=== PATIENT | female | born 1940 | race Caucasian/White ===

== ENCOUNTER 2016-11-30 13:18 | Outpatient (CLI) | payer MEDICARE, OTHER | END 2016-11-30 13:19 | disposition home or self-care (01) | DX: I48.91 Unspecified atrial fibrillation (principal); Z79.01 Long term (current) use of anticoagulants ==

== ENCOUNTER 2017-01-07 08:00 | Outpatient (CLI) | payer MEDICARE, OTHER | END 2017-01-07 08:01 | disposition home or self-care (01) | DX: I48.91 Unspecified atrial fibrillation (principal); Z79.01 Long term (current) use of anticoagulants ==

== ENCOUNTER 2017-01-22 14:36 | Outpatient (CLI) | payer MEDICARE, OTHER | END 2017-01-22 14:37 | disposition home or self-care (01) | DX: R05 Cough (principal); I48.91 Unspecified atrial fibrillation; Z79.01 Long term (current) use of anticoagulants ==

== ENCOUNTER 2017-01-22 14:53 | Outpatient (CLI) | payer MEDICARE, OTHER | END 2017-01-22 14:54 | DX: I48.91 Unspecified atrial fibrillation (principal); Z79.01 Long term (current) use of anticoagulants ==

== ENCOUNTER 2017-02-06 11:21 | Outpatient (CLI) | payer MEDICARE, OTHER | END 2017-02-06 11:22 | disposition home or self-care (01) | DX: I48.91 Unspecified atrial fibrillation (principal); Z79.01 Long term (current) use of anticoagulants ==

== ENCOUNTER 2017-02-20 14:10 | Outpatient (CLI) | payer MEDICARE, OTHER | END 2017-02-20 14:11 | DX: I48.91 Unspecified atrial fibrillation (principal); Z79.01 Long term (current) use of anticoagulants ==

== ENCOUNTER 2017-03-01 08:00 | Outpatient (CLI) | payer MEDICARE, OTHER | END 2017-03-01 08:01 | disposition home or self-care (01) | DX: I25.2 Old myocardial infarction (principal); I48.0 Paroxysmal atrial fibrillation; E78.5 Hyperlipidemia, unspecified ==

== ENCOUNTER 2017-03-12 11:19 | Outpatient (CLI) | payer MEDICARE, OTHER | END 2017-03-12 11:20 | DX: I48.91 Unspecified atrial fibrillation (principal); Z79.01 Long term (current) use of anticoagulants ==

== ENCOUNTER 2017-03-13 18:17 | Emergency (ER) | payer MEDICARE, OTHER ==
[2017-03-13] MEDS ORDERED: MECLIZINE 12.5 MG TABLET PO STA (18:31)
[2017-03-13] MEDS ORDERED: MECLIZINE 12.5 MG TABLET PO ONE (18:36)
[2017-03-13] MEDS ORDERED: ONDANSETRON ODT 4 MG TABLET ONE (19:03)
[2017-03-13] MEDS ORDERED: ONDANSETRON ODT 4 MG TABLET TL STA (19:28)
[2017-03-13] MEDS ORDERED: AZITHROMYCIN 250 MG TABLET PO STA (19:31)
[2017-03-13] MEDS ORDERED: diazePAM 5 MG TABLET PO STA (19:31)
[2017-03-13] MEDS ORDERED: AZITHROMYCIN 250 MG TABLET PO ONE (19:33)
[2017-03-13] MEDS ORDERED: diazePAM 5 MG TABLET PO ONE (19:33)
== END 2017-03-13 19:42 | disposition home or self-care (01) ==
DX: R42 Dizziness and giddiness (principal); J01.00 Acute maxillary sinusitis, unspecified; I10 Essential (primary) hypertension; E78.00 Pure hypercholesterolemia, unspecified; J44.9 Chronic obstructive pulmonary disease, unspecified; I48.91 Unspecified atrial fibrillation; I69.392 Facial weakness following cerebral infarction; I69.398 Other sequelae of cerebral infarction; Z79.01 Long term (current) use of anticoagulants; Z79.899 Other long term (current) drug therapy
CPT/HCPCS: 70450; 99284; A9270; Q0162

== ENCOUNTER 2017-03-15 11:08 | Outpatient (CLI) | payer MEDICARE, OTHER | END 2017-03-15 11:09 | disposition home or self-care (01) | DX: I48.91 Unspecified atrial fibrillation (principal); Z79.01 Long term (current) use of anticoagulants ==

== ENCOUNTER 2017-04-01 08:00 | Outpatient (CLI) | payer MEDICARE, OTHER | END 2017-04-01 08:01 | disposition home or self-care (01) | DX: I48.91 Unspecified atrial fibrillation (principal); Z79.01 Long term (current) use of anticoagulants ==

== ENCOUNTER 2017-04-16 08:00 | Outpatient (CLI) | payer MEDICARE, OTHER | END 2017-04-16 08:01 | disposition home or self-care (01) | LOC: LAB.N 08:00 | PROVIDERS: ATTEND Internal Medicine | DX: I48.91 Unspecified atrial fibrillation (principal) | CPT/HCPCS: 85610 ==

== ENCOUNTER 2017-04-19 10:37 | Outpatient (CLI) | payer MEDICARE, OTHER | END 2017-04-19 10:38 | disposition home or self-care (01) | DX: I48.91 Unspecified atrial fibrillation (principal) ==

== ENCOUNTER 2017-05-06 11:37 | Outpatient (CLI) | payer MEDICARE, OTHER | END 2017-05-06 11:38 | disposition home or self-care (01) | LOC: LAB.N 11:37 | PROVIDERS: ATTEND Internal Medicine | DX: I48.91 Unspecified atrial fibrillation (principal) | CPT/HCPCS: 85610 ==

== ENCOUNTER 2017-06-07 14:59 | Outpatient (CLI) | payer MEDICARE, OTHER | END 2017-06-07 15:00 | disposition home or self-care (01) | LOC: LAB.N 14:59 | PROVIDERS: ATTEND Internal Medicine | DX: I48.91 Unspecified atrial fibrillation (principal) | CPT/HCPCS: 85610 ==

== ENCOUNTER 2017-07-12 11:30 | Outpatient (CLI) | payer MEDICARE, OTHER | END 2017-07-12 11:31 | disposition home or self-care (01) | LOC: LAB.N 11:30 | PROVIDERS: ATTEND Internal Medicine | DX: I48.91 Unspecified atrial fibrillation (principal) | CPT/HCPCS: 85610 ==

== ENCOUNTER 2017-08-15 12:59 | Outpatient (CLI) | payer MEDICARE, OTHER | END 2017-08-15 13:00 | disposition home or self-care (01) | LOC: LAB.N 12:59 | PROVIDERS: ATTEND Internal Medicine | DX: I48.91 Unspecified atrial fibrillation (principal); Z79.01 Long term (current) use of anticoagulants | CPT/HCPCS: 85610 ==

== ENCOUNTER 2017-09-18 08:00 | Outpatient (CLI) | payer MEDICARE, OTHER | END 2017-09-18 08:01 | disposition home or self-care (01) | LOC: LAB.N 08:00 | PROVIDERS: ATTEND Internal Medicine | DX: I48.91 Unspecified atrial fibrillation (principal); Z79.01 Long term (current) use of anticoagulants | CPT/HCPCS: 85610 ==

== ENCOUNTER 2017-10-23 10:34 | Outpatient (CLI) | payer MEDICARE, OTHER | END 2017-10-23 10:35 | disposition home or self-care (01) | LOC: LAB.N 10:34 | PROVIDERS: ATTEND Internal Medicine | DX: I48.91 Unspecified atrial fibrillation (principal); Z79.01 Long term (current) use of anticoagulants | CPT/HCPCS: 85610 ==

== ENCOUNTER 2017-11-06 11:30 | Outpatient (CLI) | payer MEDICARE, OTHER | END 2017-11-06 23:59 | LOC: LAB.N 11:30 | PROVIDERS: ATTEND Internal Medicine | DX: I48.91 Unspecified atrial fibrillation (principal); Z79.01 Long term (current) use of anticoagulants | CPT/HCPCS: 85610 ==

== ENCOUNTER 2017-11-22 11:22 | Outpatient (CLI) | payer MEDICARE, OTHER | END 2017-11-22 11:23 | disposition home or self-care (01) | LOC: LAB.N 11:22 | PROVIDERS: ATTEND Internal Medicine | DX: I48.91 Unspecified atrial fibrillation (principal); Z79.01 Long term (current) use of anticoagulants | CPT/HCPCS: 85610 ==

== ENCOUNTER 2018-01-01 11:04 | Outpatient (CLI) | payer MEDICARE, OTHER | END 2018-01-01 11:05 | disposition home or self-care (01) | LOC: LAB.N 11:04 | PROVIDERS: ATTEND Internal Medicine | DX: I48.91 Unspecified atrial fibrillation (principal); Z79.01 Long term (current) use of anticoagulants | CPT/HCPCS: 85610 ==

== ENCOUNTER 2018-02-03 16:03 | Outpatient (CLI) | payer MEDICARE, OTHER | END 2018-02-03 16:04 | disposition home or self-care (01) | LOC: LAB.N 16:03 | PROVIDERS: ATTEND Internal Medicine | DX: I48.91 Unspecified atrial fibrillation (principal); Z79.01 Long term (current) use of anticoagulants | CPT/HCPCS: 85610 ==

== ENCOUNTER 2018-03-10 08:00 | Outpatient (CLI) | payer MEDICARE, OTHER | END 2018-03-10 08:01 | LOC: LAB.N 08:00 | PROVIDERS: ATTEND Internal Medicine | DX: I48.91 Unspecified atrial fibrillation (principal); Z79.01 Long term (current) use of anticoagulants | CPT/HCPCS: 85610 ==

== ENCOUNTER 2018-04-10 08:00 | Outpatient (CLI) | payer MEDICARE, OTHER | END 2018-04-10 08:01 | disposition home or self-care (01) | LOC: LAB.N 08:00 | PROVIDERS: ATTEND Internal Medicine | DX: I48.91 Unspecified atrial fibrillation (principal); Z79.01 Long term (current) use of anticoagulants | CPT/HCPCS: 85610 ==

== ENCOUNTER 2018-04-24 11:22 | Outpatient (CLI) | payer MEDICARE, OTHER | END 2018-04-24 11:23 | disposition home or self-care (01) | LOC: LAB.N 11:22 | PROVIDERS: ATTEND Internal Medicine | DX: I48.91 Unspecified atrial fibrillation (principal); Z79.01 Long term (current) use of anticoagulants | CPT/HCPCS: 85610 ==

== ENCOUNTER 2018-05-27 08:00 | Outpatient (CLI) | payer MEDICARE, OTHER | END 2018-05-27 08:01 | disposition home or self-care (01) | LOC: LAB.N 08:00 | PROVIDERS: ATTEND Internal Medicine | DX: I48.91 Unspecified atrial fibrillation (principal); Z79.01 Long term (current) use of anticoagulants | CPT/HCPCS: 85610 ==

== ENCOUNTER 2018-05-27 08:49 | Outpatient (CLI) | payer MEDICARE, OTHER ==
[2018-05-27] MEDS ORDERED: REGADENOSON 0.4 MG/5 ML SYRINGE IVP ONE ×2 (10:56→14:13)
[2018-05-27 15:52] VITALS: BP 144/74
--- NOTE | 2018-05-27 16:33 | Nuclear Medicine Report ---
Procedure Date: 05/27/2018 Accession Number: [id number] / [id number] Procedure: NM - Myocardial Perfusion STR/RST CPT Code: FULL RESULT: EXAM: SINGLE-ISOTOPE PHARMACOLOGICAL STRESS TEST WITH REGADENOSON. SINGLE-ISOTOPE AND TWO-DAY REST/STRESS MYOCARDIAL PERFUSION SCANS WITH TOMOGRAPHIC IMAGING, QUANTITATIVE ANALYSIS, WALL MOTION ANALYSIS AND CALCULATION OF EJECTION FRACTION. EXAM DATE: 05/27/2018 02:14 PM. CLINICAL HISTORY: Silent coronary artery disease. Atrial fibrillation. Progressive fatigue. Prior silent LA, and stenting of the right coronary artery. Prior ejection fraction 53% in 2012. Known stenoses of the left main and LAD. COMPARISON: Chest x-ray 01/22/2017. TECHNIQUE: A pharmacological stress was performed with the infusion of 0.4 mg regadenoson per protocol. According to protocol, 9.1 mCi of Tc-99m sestamibi was injected for stress myocardial perfusion scan. Motion correction was applied when appropriate. The following day after the intravenous administration of 41.3 mCi of Tc-99m sestamibi, a rest myocardial perfusion scan was done with tomography. Motion correction was applied when appropriate. Gated tomographic images were obtained for wall motion analysis and computation of left ventricular ejection fraction. Clinical details of the pharmacologic stress test were not provided, including the dose of Regadenoson, heart rate and blood pressure changes. FINDINGS: There is a moderate severity, moderate-sized, fixed perfusion defect in the apical half of the lateral segment, suggestive of a prior infarct. There is a mild, reversible perfusion defect involving the infarct and the basal half of the lateral segment. There are no other fixed or reversible perfusion defects. Mild chamber enlargement which does not alter between resting and stress images. Normal cardiac wall motion. Ejection fraction 57%. IMPRESSION: 1. Findings suggestive of a prior partial thickness infarct of the apical half of the lateral segment. 2. Mild, reversible ischemia of the partially infarcted tissue and the basal half of the lateral segment. 3. Normal segmental and global wall motion. 4. Mild ventricular chamber enlargement. 5. Normal cardiac ejection fraction of 57%. The latter finding is unchanged when compared with the findings described in the clinical history. RADIA The above findings were discussed with Dr. Bashir's Nurse by Dr. Celio Schwartz at 16:09 hrs on 05/27/18.
--- NOTE | 2018-05-29 15:21 | CARDIAC PROCEDURE NOTE ---
DATE OF SERVICE: 05/27/2018 Physician: Bisi Rowe MD please verify date, none given please verify blank - audio completely cut out for several seconds remove this note before signing - thanks/krystina PROCEDURE: Lexiscan. HEART RATE RESPONSE: Baseline 78, maximum 104. BLOOD PRESSURE RESPONSE: Baseline 146/76 to maximum 148/76. ST-SEGMENT RESPONSE: The ST segments became more downsloping during the test. ARRHYTHMIAS: Occasional PVC. SYMPTOMS: None. EXAM CHANGES: None. IMPRESSION: There were ST segment changes. No symptoms. CONCLUSION: Await imaging portion of test. TD: 05/27/2018 13:15 MTDD
== END 2018-05-27 08:50 | disposition home or self-care (01) ==
LOC: DI 08:49
PROVIDERS: ATTEND Internal Medicine Cardiovascular Disease
DX: I25.10 Atherosclerotic heart disease of native coronary artery without angina pectoris (principal); I25.6 Silent myocardial ischemia; R06.02 Shortness of breath; R53.83 Other fatigue; I51.7 Cardiomegaly; I48.91 Unspecified atrial fibrillation; Z79.01 Long term (current) use of anticoagulants
CPT/HCPCS: 78452; 85610; 93017; A9500; J2785

== ENCOUNTER 2018-06-30 08:00 | Outpatient (CLI) | payer MEDICARE, OTHER | END 2018-06-30 08:01 | disposition home or self-care (01) | LOC: LAB.N 08:00 | PROVIDERS: ATTEND Internal Medicine | DX: I48.91 Unspecified atrial fibrillation (principal); Z79.01 Long term (current) use of anticoagulants | CPT/HCPCS: 85610 ==

== ENCOUNTER 2018-07-17 14:06 | Outpatient (CLI) | payer MEDICARE, OTHER | END 2018-07-17 14:07 | disposition critical access hospital (66) | LOC: EMS 14:06 | PROVIDERS: ATTEND Surgery | DX: M25.511 Pain in right shoulder (principal); M25.512 Pain in left shoulder | CPT/HCPCS: A0425; A0427 ==

== ENCOUNTER 2018-07-17 14:26 | Inpatient (IN) | payer MEDICARE, OTHER ==
--- NOTE | 2018-07-17 14:49 | ED Physician Documentation ---
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 Cardiovascular: Vascular surgery, Angioplasty HEENT: Tonsil/Adenoidectomy - Present Medications Home Medications: Ambulatory Orders Medication Instructions Recorded Confirmed Allopurinol 300 mg PO DAILY 02/15/15 03/13/17 Metoprolol Tartrate 25 mg PO DAILY 02/15/15 03/13/17 Pantoprazole [Protonix] 40 mg PO DAILY 02/15/15 03/13/17 Simvastatin 40 mg PO DAILY 02/15/15 03/13/17 Warfarin [Coumadin] 5 mg PO DAILY 02/15/15 03/13/17 Azithromycin [Zithromax] 250 mg PO DAILY #4 tablet 03/13/17 Diazepam 2 mg PO Q6HR PRN #10 tablet 03/13/17 Losartan [Cozaar] 25 mg PO ONCE 03/13/17 03/13/17 - Allergies Allergies/Adverse Reactions: Allergies Allergy/AdvReac Type Severity Reaction Status Date / Time amoxicillin trihydrate * Allergy Nausea Verified 03/08/15 14:05 [From Augmentin] potassium clavulanate * Allergy Nausea Verified 03/08/15 14:05 [From Augmentin] morphine AdvReac Unknown Verified 03/08/15 14:05 - Social History Does the pt smoke?: No Smoking Status: Current every day smoker Does the pt drink ETOH?: Yes Does the pt have substance abuse?: No Results - Vitals Vitals: Vital Signs - 24 hr 07/17/18 14:37 Temperature 36.4 C L Heart Rate 66 Respiratory 16 Rate Blood Pressure 120/57 L O2 Saturation 97 Oxygen O2 Source Room air - EKG (time done) 1437 Rate: Rate (enter#) (82) Rhythm: NSR [place]: Normal PD MEDICAL DECISION MAKING - Sepsis Event Vital Signs: Vital Signs - 24 hr 07/17/18 14:37 Temperature 36.4 C L Heart Rate 66 Respiratory 16 Rate Blood Pressure 120/57 L O2 Saturation 97 Oxygen O2 Source Room air
[2018-07-17] MEDS: NITROGLYCERIN SL 0.4 MG TABLET SL STA ×2 (15:29→16:12)
--- NOTE | 2018-07-17 15:30 | ED Physician Documentation ---
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 denies: Fever, Chills Cardiac: denies: Chest pain / pressure (yue shoulders) Respiratory: denies: Dyspnea, Cough GI: reports: Abdominal Pain. denies: Nausea, Vomiting Musculoskeletal: reports: Neck pain, Joint pain (yue shoulders and side of neck) . 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 Cardiovascular: Vascular surgery, Angioplasty HEENT: Tonsil/Adenoidectomy - Present Medications Home Medications: Ambulatory Orders Medication Instructions Recorded Confirmed Pantoprazole [Protonix] 40 mg PO QDAC 02/15/15 07/17/18 Simvastatin 40 mg PO QPM 02/15/15 07/17/18 Warfarin [Coumadin] 5 mg PO CARRASCO@0900 02/15/15 07/17/18 Losartan [Cozaar] 25 mg PO DAILY 03/13/17 07/17/18 Aspirin 81 mg PO DAILY 07/17/18 07/17/18 Isosorbide Mononitrate [Isosorbide 60 mg PO DAILY 07/17/18 07/17/18 Mononitrate ER] Metoprolol Succinate 50 mg PO DAILY 07/17/18 07/17/18 Warfarin Sodium 2.5 mg PO MOTUWETHFRSA@0900 07/17/18 07/17/18 - Allergies Allergies/Adverse Reactions: Allergies Allergy/AdvReac Type Severity Reaction Status Date / Time amoxicillin trihydrate * Allergy Nausea Verified 03/08/15 14:05 [From Augmentin] potassium clavulanate * Allergy Nausea Verified 03/08/15 14:05 [From Augmentin] morphine AdvReac Unknown Verified 03/08/15 14:05 - Social History Does the pt smoke?: No Smoking Status: Current every day smoker Does the pt drink ETOH?: Yes Does the pt have substance abuse?: No PD ED PE NORMAL - Vitals Vital signs reviewed: Yes - Cardiac Cardiac: RRR - Respiratory Respiratory: No respiratory distress - Abdomen Abdomen: Soft, Non tender - Derm Derm: Normal color - Extremities Extremities: No calf tenderness / cord - Neuro Neuro: Alert and oriented X 3 Results - Vitals Vitals: Vital Signs - 24 hr 07/17/18 07/17/18 07/17/18 14:37 15:30 16:38 Temperature 36.4 C L Heart Rate 66 80 85 Respiratory 16 17 16 Rate Blood Pressure 120/57 L 128/63 120/65 O2 Saturation 97 92 93 07/17/18 18:00 Temperature Heart Rate 83 Respiratory 18 Rate Blood Pressure 140/65 H O2 Saturation 93 Oxygen O2 Source Room air - EKG (time done) 1437 Rate: Rate (enter#) (82) Rhythm: NSR [place]: Normal Intervals: Normal [place] Ischemia: Non specific changes (slight ST [place] V1-V3) - Labs Labs: Laboratory Tests 07/17/18 07/17/18 07/17/18 15:36 15:36 15:36 WBC 8.1 RBC 4.07 L Hgb 10.4 L Hct 31.9 L MCV 78.5 L MCH 25.6 L MCHC 32.6 RDW 15.3 H Plt Count 298 MPV 7.5 L Neut # (Auto) 6.1 Lymph # (Auto) 1.2 L [place] # (Auto) 0.5 Eos # (Auto) 0.2 Baso # (Auto) 0.1 Absolute Nucleated RBC 0.00 Nucleated RBC % 0.0 Sodium 134 L Potassium 4.5 Chloride 99 L Carbon Dioxide 29 Anion Gap 6.0 BUN 12 Creatinine 0.9 Estimated GFR (MDRD) 61 L Glucose 118 H Calcium 9.0 Total Bilirubin 0.6 AST 16 ALT 11 Alkaline Phosphatase 65 Troponin I < 0.04 Total Protein 6.7 Albumin 3.7 Globulin 3.0 Albumin/Globulin Ratio 1.2 Lipase 26 - Rads (name of study) CXR Radiology: See rad report (NACPD) PD MEDICAL DECISION MAKING - ED course ED course: recent stress test results in EMR and note pt had mild reversible ischemia of the previously infarcted area basal half lateral segment pt reports 6 prior stents I called cardio group - Dr Guardado not available but application manager cardio Dr Miles felt that like the thought was that since this was a small area of reversible ischemia it was reasonable to try medical management, as far as he knows (and the pt knows) there is no reason that she could not have an angio or more stents if needed, he agrees with plan to admit for serial enzymes and if + would consider cath gave BB and heparin in addition to asa pt already took and spoke to Dr Nichols hospitalist who will accept pt and admit for further work up no sig change with nitro in ED allergic to morphine also mild anemia - no prior for 5 years or so - merits outpt wup but not so low I would expect it to cause sx update pt on her results and cardio rec - Sepsis Event Vital Signs: Vital Signs - 24 hr 07/17/18 07/17/18 07/17/18 14:37 15:30 16:38 Temperature 36.4 C L Heart Rate 66 80 85 Respiratory 16 17 16 Rate Blood Pressure 120/57 L 128/63 120/65 O2 Saturation 97 92 93 07/17/18 18:00 Temperature Heart Rate 83 Respiratory 18 Rate Blood Pressure 140/65 H O2 Saturation 93 Oxygen O2 Source Room air Departure - Departure Disposition: ED Place in Observation Clinical Impression: Chest pain, rule out acute myocardial infarction Shoulder pain, bilateral Qualifiers: Chronicity: acute Qualified Code(s): M25.511 - Pain in right shoulder Condition: Good
[2018-07-17 15:52] LABS: BASOPHILS # (AUTO) 0.1 10^3/uL (0.0-0.1); EOSINOPHILS # (AUTO) 0.2 10^3/uL (0.0-0.7); EOSINOPHILS % (AUTO) 2.4 %; HGB - HEMOGLOBIN 10.4 g/dL (12.0-16.0); LYMPHOCYTES # (AUTO) 1.2 10^3/uL (1.5-3.5); LYMPHOCYTES % (AUTO) 14.7 %; MEAN CORPUSCULAR HEMOGLOBIN 25.6 pg (27.0-31.0); MEAN CORPUSCULAR HGB CONC 32.6 g/dL (32.0-36.0); MEAN CORPUSCULAR VOLUME 78.5 fL (81.0-99.0); MEAN PLATELET VOLUME 7.5 fL (7.9-10.8); MONOCYTES # (AUTO) 0.5 10^3/uL (0.0-1.0); MONOCYTES % (AUTO) 6.5 %; NEUTROPHILS # (AUTO) 6.1 10^3/uL (1.5-6.6); NEUTROPHILS % (AUTO) 75.4 %; PLT - PLATELET COUNT 298 10^3/uL (130-450); RED BLOOD COUNT 4.07 10^6/uL (4.20-5.40); RED CELL DISTRIBUTION WIDTH 15.3 % (12.0-15.0); WHITE BLOOD COUNT 8.1 x10^3/uL (4.8-10.8)
[2018-07-17 15:57] LABS: ALBUMIN 3.7 g/dL (3.2-5.5); ALBUMIN/GLOBULIN RATIO 1.2 (1.0-2.2); BILIRUBIN,TOTAL 0.6 mg/dL (0.2-1.0); CREATININE 0.9 mg/dL (0.4-1.0); TOTAL PROTEIN 6.7 g/dL (6.7-8.2)
--- NOTE | 2018-07-17 16:01 | XRAY Report ---
Reason: shoulder pain Procedure Date: 07/17/2018 Accession Number: [id number] / [id number] Procedure: XR - Chest 2 View X-Ray CPT Code: 61379 FULL RESULT: EXAM: CHEST RADIOGRAPHY EXAM DATE: 07/17/2018 03:47 PM. CLINICAL HISTORY: Shoulder pain. COMPARISON: Chest 2 view PA/lat 01/22/2017. TECHNIQUE: 2 views. FINDINGS: Lungs/Pleura: No focal opacities evident. No pleural effusion. No pneumothorax. Normal volumes. Mediastinum: Heart and mediastinal contours are unremarkable. Other: None. IMPRESSION: No acute cardiopulmonary abnormality. RADIA
[2018-07-17] MEDS ORDERED: ACETAMINOPHEN 1,000 MG/100 ML 100 ML IV STA (16:33)
[2018-07-17] MEDS ORDERED: HEPARIN 25000UNITS/500ML (D5W) 25,000 UNIT/500 ML BAG IV STA (17:44)
[2018-07-17] MEDS ORDERED: METOPROLOL 5 MG/5 ML VIAL IVP STA (17:45)
[2018-07-17] MEDS ORDERED: HEPARIN 5,000 UNIT/ML VIAL IVP SCH (18:00)
[2018-07-17] MEDS ORDERED: SODIUM CHLORIDE FLUSH 0.9% 10 ML SYRINGE IVP PRN (18:04)
--- NOTE | 2018-07-17 18:51 | HISTORY & PHYSICAL EXAMINATION ---
Chief Complaint - Chief Complaint Chief Complaint: chest/shoulder pain History of Present Illness - Admitted From Admitted From:: Ed - History Obtained From Records Reviewed: yes History obtained from: chart review, patient Exam Limitations: none - History of Present Illness HPI Comment/Other: Tata Jaffe is a 78-year old female with a past medical history of hypertension, hyperlipidemia, VA, coronary stents, COPD, life long tobacco dependence, GERD, atrial fibrillation-on Warfarin, history of arteriovenous malformation-status post repair and angina. The patient was in her usual state of health today while shopping at [employer]; walking and pushing a shopping cart. She developed mid-sternal chest pain with severe bilateral shoulder and neck pain that radiated to the middle (center) of her shoulder blades. Associated symptoms included nausea, diaphoresis with clammy skin, dizziness as if she may faint, shortness of breath, and mild palpitations. This pain was brought on by activity, only slightly improved with rest, and nearly fully resolved after medications were given in the ED, nitroglycerin, IVFs, and heparin. She denies recent illness, fevers, chills, syncope, bleeding, falls, altered mental status or a new cough. She found a place to sit down near the pharmacy. She took 6 baby aspirin, and had very little relief. After about 15 minutes, she called 911. EMS came into [facility] and brought her to the ED for evaluation of acute coronary syndrome. She recently had a follow up appointment in our MAC clinic with Dr. Bashir who reviewed a stress test with her. She will be admitted to observation to evaluate for elevated troponins, obtain an echocardiogram, telemetry monitoring and evaluate this acute angina. *Family was at the bedside, her son and grand-daughter for the admission exam, and H&P. 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 She has 2 grown sons. She enjoys gardening and spending time with her grand children. She denies alcohol use or illicit drugs. She states that she has been a life long smoker since age 16. She uses 1 PPD. She wishes to be a FULL code. - Substance History Use: Uses substance without health or social issues: Tobacco Abuse: Recurrent use of substance despite neg consequences: NONE Dependence: Experiences withdrawal or developed tolerances: NONE Tobacco Details: Cigarettes (current 1 PPD smoker) - POLST Patient has POLST: No POLST Status: Full Code Meds/Allgy - Home Medications Home Medications: Ambulatory Orders Medication Instructions Recorded Confirmed Pantoprazole [Protonix] 40 mg PO QDAC 02/15/15 07/17/18 Simvastatin 40 mg PO QPM 02/15/15 07/17/18 Warfarin [Coumadin] 5 mg PO CARRASCO@0900 02/15/15 07/17/18 Losartan [Cozaar] 25 mg PO DAILY 03/13/17 07/17/18 Aspirin 81 mg PO DAILY 07/17/18 07/17/18 Isosorbide Mononitrate [Isosorbide 60 mg PO DAILY 07/17/18 07/17/18 Mononitrate ER] Metoprolol Succinate 50 mg PO DAILY 07/17/18 07/17/18 Warfarin Sodium 2.5 mg PO MOTUWETHFRSA@0900 07/17/18 07/17/18 - Allergies Allergies/Adverse Reactions: Allergies Allergy/AdvReac Type Severity Reaction Status Date / Time amoxicillin trihydrate * Allergy Nausea Verified 03/08/15 14:05 [From Augmentin] potassium clavulanate * Allergy Nausea Verified 03/08/15 14:05 [From Augmentin] morphine AdvReac Unknown Verified 03/08/15 14:05 Review of Systems - Constitutional Constitutional: reports: Fatigue, Diaphoresis - Eyes Eyes: reports: Blurred vision - Ears, Nose & Throat Ears, Nose & Throat: reports: Vertigo, Postnasal drainage - Cardiovascular Cariovascular: reports: Palpitations, Chest pain, Edema, Lightheadedness, Decr. exercise tolerance - Respiratory Respiratory: reports: Cough, SOB at rest, SOB with exertion - Gastrointestinal Gastrointestinal: reports: Reflux/heartburn - Musculoskeletal Musculoskeletal: reports: Muscle aches - Integumentary Integumentary: reports: Dryness - Neurological Neurological: reports: Headache, Dizziness, Pre-existing deficit - All Other Systems All Other Systems: reports: Reviewed and negative Exam - Vital Signs Reviewed Vital Signs: Yes Vital Signs: Vital Signs x48h Temp Pulse Resp BP Pulse Ox 07/17/18 18:21 36.7 C 84 17 140/66 H 96 - Physical Exam General Appearance: positive: Alert, Mild distress Eyes Bilateral: positive: Normal inspection, PERRL ENT: positive: ENT inspection nml, Pharyngeal erythema, Dry mucous membranes Neck: positive: Nml inspection, Thyroid nml, No JVD, Carotid bruit (bilateral boarderline bruit) Respiratory: positive: Chest non-tender, No respiratory distress, Breath sounds nml Cardiovascular: positive: Regular rate & rhythm, No gallop, Systolic murmur Peripheral Pulses: positive: 2+ Abdomen: positive: Non-tender, No organomegaly, Nml bowel sounds Back: positive: Nml inspection Skin: positive: No rash, Warm, Dry Extremities: positive: Non-tender, Full ROM, Nml appearance, Pedal edema (mild, dependent BLE) Neurologic/Psychiatric: positive: Oriented x3, CN's nml (2-12), Motor nml, Sensation nml, Mood/affect nml, Facial droop (chronic, Left) Reflexes: Bicep (R): 3+, Bicep (L): 3+, Ankle (R): 3+, Ankle (L): 3+ Conclusion/Plan - Problem List (1) Chest pain, rule out acute myocardial infarction Conclusion/Plan: The patient was in her usual state of health today while shopping at [employer]; walking and pushing a shopping cart. She developed mid-sternal chest pain with severe bilateral shoulder and neck pain that radiated to the middle (center) of her shoulder blades. Associated symptoms included nausea, diaphoresis with clammy skin, dizziness as if she may faint, shortness of breath, and mild palpitations. This pain was brought on by activity, only slightly improved with rest, and nearly fully resolved after medications were given in the ED, nitroglycerin, IVFs, and heparin. The patient admits to her previous episodes of chest pain, but notes this to be much more severe. She continues to smoke 1 PPD and has been a life long smoker. The first troponin is negative, with the second level coming next around 2130, and 0330. She has several risk factors; Age, tobacco use, sedentary life style and she has had previous vascular disease (+VA & + CVA with a left facial droop). Plan: Admit to observation, serial troponins, echo in the AM, continuous monitoring and symptom control. (2) Tobacco dependence Conclusion/Plan: The patient has been a life long smoker of at least 1 PPD since the age of 16 years. She states that she has had very few times in her life in which she quit. She has had negative consequences from this; COPD, VA and a CVA. Plan: Nicotine patch as needed and encourage pulmonary rehab upon discharge. (3) Shoulder pain, bilateral Conclusion/Plan: The patient denies recent falls, injuries, MVAs, loss of consciousness, or other musculoskeletal causes of her bilateral shoulder and neck pain. This came on suddenly and until proven otherwise is likely of cardiac etiology. Plan: Treat with dilaudid if severe (check with morphine allergy first), give Nitro SL, or APAP. Obtain stat EKG during acute chest pain. Qualifiers: Chronicity: acute Qualified Code(s): M25.511 - Pain in right shoulder; M25.512 - Pain in left shoulder; M25.512 - Pain in left shoulder (4) Sinusitis Conclusion/Plan: The patient likely has this as a consequence of her tobacco dependence. She denies the use of nasal sprays or a history of nasal polyps. Plan: continue to monitor. Qualifiers: Sinusitis location: maxillary Chronicity: acute Recurrence: not specified as recurrent Qualified Code(s): J01.00 - Acute maxillary sinusitis, unspecified (5) Vertigo Conclusion/Plan: The patient has dizziness as a primary complaint and claims to have had this in the past. Plan: Continue ACS work up, and fall precautions. (6) History of coronary artery stent placement Conclusion/Plan: The patient had her last stent placement ~10 years ago and no longer takes plavix. She continues to be dependent on tobacco. She recently saw Dr. Bashir for her stress test and holter monitor results from May. If she has elevated troponins on this observation stay, she will likely be transferred for a cardiac cath. Plan: Continue work up for rule out chest pain. (7) History of CVA (cerebrovascular accident) Conclusion/Plan: The patient demonstrates a left sided weakness and this is appreciated when the patient is asked to smile. She is neuro-intact and the patient states that she does not have any other post CVA residuals and this was first noticed during a routine eye appointment. This is likely a consequence of her CAD that she has developed due to her tobacco dependence. The patient has a head CT from February of 2017 in [facility] which showed no acute stroke or bleeding. She states that she has never seen a specialist since learning of her facial droop. Plan: Continue to monitor for neuro changes. (8) CAD (coronary artery disease) Conclusion/Plan: The patient has known coronary disease and believes that her last stent was about 10 years ago in which they attempted the radial artery, and resorted to the femoral location. Her son, João is at the bedside and can attest to this time frame. She is not prescribed Plavix. She is prescribed a statin at home, that will continue here. Plan: Continue ACS work up. Qualifiers: Associated angina: with unspecified angina (9) GERD (gastroesophageal reflux disease) Conclusion/Plan: The patient has a known history of this and is prescribed Protonix at home. I have added a GI cocktail as needed. This disease may be a contributing factor to her acute chest pain. Plan: continue to monitor. - Lab Results Lab results reviewed: Yes Inocencio Bones: 07/18/18 04:25 07/18/18 04:25 - Diagnostic Imaging Results Diagnostic Imaging Results: positive: Prelim report reviewed - EKG Results EKG Interpreted Independently: Yes EKG Comparison: No prior EKG Core Measures - Anticipated LOS I expect patient to be DC'd or transferred within 96 hours.: Yes - DVT/VTE - Prophylaxis VTE/DVT Device ordered at admit?: Yes VTE/DVT Prophylaxis med ordered at admit?: Yes - Stroke - Rehab Assessment Rehab services assessment to be ordered?: Yes - AMI - Statin at Admit Aspirin Prescribed on Admit: Yes
[2018-07-17] MEDS ORDERED: NITROGLYCERIN SL 0.4 MG TABLET SL PRN (20:40)
[2018-07-17] MEDS ORDERED: HYDROmorphone 1 MG/ML CARPUJECT IVP PRN (20:42)
[2018-07-17] MEDS ORDERED: ACETAMINOPHEN 325 MG TABLET PO PRN (20:43)
[2018-07-17] MEDS ORDERED: HEPARIN 25000UNITS/500ML (D5W) 25,000 UNIT/500 ML BAG IV SCH (21:00)
[2018-07-17] MEDS ORDERED: ONDANSETRON ODT 4 MG TABLET TL PRN (21:16)
[2018-07-17] MEDS ORDERED: ONDANSETRON 4 MG/2 ML VIAL IVP PRN (21:16)
[2018-07-17] MEDS ORDERED: GI COCKTAIL 120 ML BOTTLE PO PRN (21:16)
[2018-07-17] MEDS: ATORVASTATIN 10 MG TABLET PO SCH (21:56)
[2018-07-17] MEDS: NICOTINE 14 MG PATCH TOP SCH (21:56)
[2018-07-18] MEDS: SODIUM CHLORIDE FLUSH 0.9% 10 ML SYRINGE IVP SCH ×3 (01:54→18:03)
[2018-07-18 04:41] LABS: BASOPHILS # (AUTO) 0.1 10^3/uL (0.0-0.1); BASOPHILS % (AUTO) 1.5 %; EOSINOPHILS # (AUTO) 0.5 10^3/uL (0.0-0.7); EOSINOPHILS % (AUTO) 5.1 %; HGB - HEMOGLOBIN 9.9 g/dL (12.0-16.0); LYMPHOCYTES # (AUTO) 1.9 10^3/uL (1.5-3.5); LYMPHOCYTES % (AUTO) 21.3 %; MEAN CORPUSCULAR HEMOGLOBIN 25.5 pg (27.0-31.0); MEAN CORPUSCULAR HGB CONC 32.7 g/dL (32.0-36.0); MEAN CORPUSCULAR VOLUME 77.9 fL (81.0-99.0); MEAN PLATELET VOLUME 7.5 fL (7.9-10.8); MONOCYTES # (AUTO) 0.6 10^3/uL (0.0-1.0); MONOCYTES % (AUTO) 6.5 %; NEUTROPHILS # (AUTO) 5.9 10^3/uL (1.5-6.6); NEUTROPHILS % (AUTO) 65.6 %; PLT - PLATELET COUNT 303 10^3/uL (130-450); RED BLOOD COUNT 3.89 10^6/uL (4.20-5.40); RED CELL DISTRIBUTION WIDTH 15.4 % (12.0-15.0)
[2018-07-18 04:45] LABS: INR 2.8 (0.8-1.2); PT - PROTHROMBIN TIME 30.3 secs (9.9-12.6)
[2018-07-18 04:51] LABS: ALBUMIN 3.3 g/dL (3.2-5.5); ALBUMIN/GLOBULIN RATIO 1.1 (1.0-2.2); ALKALINE PHOSPHATASE 61 IU/L (42-121); ALT ALANINE AMINOTRANSFERASE < 10 IU/L (10-60); AST ASPARTATE AMINOTRANSFERASE 16 IU/L (10-42); BILIRUBIN,TOTAL 0.4 mg/dL (0.2-1.0); BUN - BLOOD UREA NITROGEN 14 mg/dL (6-20); CALCIUM 8.7 mg/dL (8.5-10.3); CARBON DIOXIDE - CO2 30 mmol/L (21-32); CHLORIDE 98 mmol/L (101-111); CREATININE 0.9 mg/dL (0.4-1.0); GFR - MDRD 61 (>89); GLUCOSE 113 mg/dL (70-100); SODIUM 133 mmol/L (135-145); TOTAL PROTEIN 6.2 g/dL (6.7-8.2)
[2018-07-18] MEDS: PANTOPRAZOLE 40 MG TABLET PO SCH (06:51)
[2018-07-18] MEDS: METOPROLOL SUCCINATE 50 MG TABLET PO SCH (08:30)
[2018-07-18] MEDS: ISOSORBIDE MONONITRATE ER 30 MG TABLET PO SCH (08:30)
[2018-07-18] MEDS: NICOTINE 14 MG PATCH TOP SCH (08:30)
[2018-07-18] MEDS: POLYETHYLENE GLYCOL 3350 17 GM PACKET PO SCH (08:31)
[2018-07-18] MEDS ORDERED: WARFARIN 2.5 MG TABLET PO SCH (09:00)
--- NOTE | 2018-07-18 12:44 | Discharge Plan ---
Discharge Plan Disposition: Home, Self Care Condition: Good Prescriptions: Levalbuterol Tartrate [Xopenex Hfa] 15 gm IH Q4HR PRN #5 hfa.aer.ad PRN Reason: Bronchospasm Nitroglycerin [Nitrostat] 0.4 mg SL Q5MIN PRN #30 tablet PRN Reason: Angina Fluticasone/Salmeterol [Advair 250-50 Diskus] 1 each IH BID #5 disk.w.dev Diet: Cardiac Activity Restrictions: Activity as Tolerated Shower Restrictions: No Driving Restrictions: No Weight Bearing: Full Weight Additional Instructions or Follow Up instructions: You were admitted for acute chest pain and after testing and two nights of observation it is not thought that you suffered any recent/current heart damage. 4 serial troponins were completed and an echocardiogram which showed no evidence of heart damage. A call was made to Cardiology, Dr. Bashir as we have maximized your medical management. He suggests that you see Dr. Almeida this and said he will assist with this to ensure you an appointment. We suggest that you just take things easy until that time and take a nitroglycerin if you feel the same neck and shoulder pain. You can take tylenol afterwards if you have a headache from the nitroglycerin. Since you continued to have the pain/discomfort, you stayed another night and a call was made to Dr. Rigo Shields, who did not suggest a transfer to their hospital. You have COPD and I have sent a long acting inhaled steroid to be taken twice daily (rinse your mouth afterwards), and a rescue inhaler. Yesterday you had a test by respiratory therapy which showed you may need oxygen with activity, but since you are not quite ready to quit smoking the inhalers are a safer choice. Please see your PCP within one week and Dr. Almeida on July 24. Follow-Up Care: [facility] - Pulmonary No Smoking: If you smoke, Please STOP! Call for help. Follow-up with: Bisi Rowe MD [Primary Care Provider] -
--- NOTE | 2018-07-18 12:48 | DISCHARGE SUMMARY ---
"Discharge Summary Admit Date: 07/17/18 Discharge Date: 07/18/18 Discharging Provider: ESPINOZA Fuentes Primary Care Provider: Bisi Rowe Code Status: Attempt Resuscitation Condition at Discharge: Good Discharge Disposition: 01 Home, Self Care - DIAGNOSES Admission Diagnoses: Chest pain, unspecified (R07.9) Unspecified atrial fibrillation (I48.91) Hyperlipidemia, unspecified (E78.5) Gastro-esophageal reflux disease without esophagitis (K21.9) Discharge Diagnoses with Status of Each Condition: Chest pain (R07.9) improved, ruled out for acute NV. GERD (gastroesophageal reflux disease) (K21.9) chronic, stable. Tobacco dependence (F17.200) chronic, stable, plans on continuing. Shoulder pain, bilateral (M25.511) stable, ruled out for NV. Sinusitis (J32.9) chronic, stable. Vertigo (R42) chronic, stable. History of coronary artery stent placement (Z95.5) chronic, stable. CAD (coronary artery disease) (I25.10) chronic, stable. COPD (chronic obstructive pulmonary disease) (J44.9) chronic, stable and sent home on long acting steroid inhaler, rescue inhaler as she refused oxygen with ambulation. - HPI History of Present Illness: Tata Jaffe is a 78-year old female with a past medical history of hypertension, hyperlipidemia, NV, coronary stents, COPD, life long tobacco dependence, GERD, atrial fibrillation-on Warfarin, history of arteriovenous malformation-status post repair and angina. The patient was in her usual state of health today while shopping at [employer]; walking and pushing a shopping cart. She developed mid-sternal chest pain with severe bilateral shoulder and neck pain that radiated to the middle (center) of her shoulder blades. Associated symptoms included nausea, diaphoresis with clammy skin, dizziness as if she may faint, shortness of breath, and mild palpitations. This pain was brought on by activity, only slightly improved with rest, and nearly fully resolved after medications were given in the ED, nitroglycerin, IVFs, and heparin. She denies recent illness, fevers, chills, syncope, bleeding, falls, altered mental status or a new cough. She found a place to sit down near the pharmacy. She took 6 baby aspirin, and had very little relief. After about 15 minutes, she called 911. EMS came into [employer] and brought her to the ED for evaluation of acute coronary syndrome. She recently had a follow up appointment in our [facility] clinic with Dr. Bashir who reviewed a stress test with her. She will be admitted to observation to evaluate for elevated troponins, obtain an echocardiogram, telemetry monitoring and evaluate this acute angina. *Family was at the bedside, her son and grand-daughter for the admission exam, and H&P. - CONSULTS | PROCEDURES Consultations: Cardiology-Dr. Bashir - HOSPITAL COURSE Hospital Course: (1) Chest pain, rule out acute myocardial infarction The patient was in her usual state of health today while shopping at [employer]; walking and pushing a shopping cart. She developed mid-sternal chest pain with severe bilateral shoulder and neck pain that radiated to the middle (center) of her shoulder blades. Associated symptoms included nausea, diaphoresis with clammy skin, dizziness as if she may faint, shortness of breath, and mild palpitations. This pain was brought on by activity, only slightly improved with rest, and nearly fully resolved after medications were given in the ED, nitroglycerin, IVFs, and heparin. The patient admits to her previous episodes of chest pain, but notes this to be much more severe. Prior to this admission, she was smoking 1 PPD and has been a life long smoker. She has ruled out for acute NV by having negative troponins x3, no significant EKG changes and preliminary echocardiogram results show no wall motion abnormalities. She has several risk factors; Age, tobacco use, sedentary life style and she has had previous vascular disease (+NV & + CVA with a chronic left facial droop). The patient had a stress test which showed reversible ischemia of the partially infarcted tissue and the basal half of the lateral segment on 05/27/18. She has known stenoses of the left main and LAD. She had a clinic appointment with Dr. Bashir about a week ago in which the results were discussed. The patient did not have a full resolution of her symptoms and continued to have labile mid-scapular back pain that was intermittent and not associated with any other symptoms. A call to her primary [employer] Dr. Bashir was made who recommended a call to [place]. I spoke with Dr. Sierra, who suggests a cardiac cath on an outpatient bases with her ruling out. However, with her ongoing shoulder/mid scapular pain of unknown etiology, she would not be in a safe place to be discharged home and this is considered unstable angina until proven otherwise. I met with her and her son, João and they agree that staying one more night due to her pain is the best option. Plan: Admit to inpatient for further management of her chest pain. Monitor for acute or worsening chest pain. Order EKG and troponins in that case. (2) Tobacco dependence The patient has been a life long smoker of at least 1 PPD since the age of 16 years. She states that she has had very few times in her life in which she quit. She has had negative consequences from this; COPD, NV and a CVA. She is not interested in quitting at this time as she has just lost her sister and the is coming up in one week in [facility]. Plan: Nicotine patch daily and encourage pulmonary rehab upon discharge/ cessation. (3) Shoulder pain, bilateral The patient denies recent falls, injuries, MVAs, loss of consciousness, or other musculoskeletal causes of her bilateral shoulder and neck pain. This came on suddenly and until proven otherwise is likely of cardiac etiology. The patient denies prior injuries or falls. Plan: Treat with dilaudid if severe (check with morphine allergy first), give Nitro SL, or APAP. Obtain stat EKG during acute chest pain. (4) Sinusitis The patient likely has this as a consequence of her tobacco dependence. She denies the use of nasal sprays or a history of nasal polyps. She now requires oxygen, and this will likely add to her general nasal discomfort. I will recommend daily nasal sprays and a LABA upon discharge. Plan: continue to monitor. (5) Vertigo The patient has dizziness as a primary complaint and claims to have had this in the past. Today upon exam, this symptom has became less apparent. (6) History of coronary artery stent placement The patient had her last stent placement ~10 years ago and no longer takes plavix. She continues to be dependent on tobacco. She recently saw Dr. Bashir for her stress test and holter monitor results from May. As per myocardial perfusion stress test results; the patient has a stent in her RCA and known stenoses of the left main and LAD. Plan: Continue to monitor for further acute chest pain. (7) History of CVA (cerebrovascular accident) The patient demonstrates a left sided weakness and this is appreciated when the patient is asked to smile. She is neuro-intact and the patient states that she does not have any other post CVA residuals and this was first noticed during a routine eye appointment. This is likely a consequence of her CAD that she has developed due to her tobacco dependence. The patient has a head CT from February of 2017 in [facility] which showed no acute stroke or bleeding. She states that she has never seen a specialist since learning of her facial droop. Plan: Continue to monitor for neuro changes. (8) CAD (coronary artery disease) The patient has known coronary disease and believes that her last stent was about 10 years ago in which they attempted the radial artery, and resorted to the femoral location. She is no longer prescribed Plavix. She remains on a statin, Imdur (nitrate), beta osiel and warfarin at home, that has been continued here. (9) GERD (gastroesophageal reflux disease) The patient has a known history of this and is prescribed Protonix at home. I have added a GI cocktail as needed. This was given today as per my request to rule out GI sources of this angina. This disease may be a contributing factor to her acute chest pain. (10) COPD (chronic obstructive pulmonary disease) The patient has this disease as a consequence of her greater than 30 year smoking history. She is not prescribed any long acting steroid inhalers or rescue inhalers. The patient flunked her walking saturation oxygen test today with our respiratory therapy staff. She will require oxygen during ambulation. Nursing reports that she was found to be 88% on room air as to why this was ordered. She has required oxygen since this morning and crackles can be heard from the bedside. I will consider a chest x-ray if she continues to show signs of pulmonary congestion. Disposition: The patient was in stable medical condition and was discharged home with a resolution of her associated symptoms, now with intermittent mid- clavicle and bilateral shoulder pain that she states comes and goes, does not worsen with activity and has no exacerbating etiologies. Her son, João was at the bedside who will give her a ride home via private car. The patient chose not to accept an order for home oxygen and is agreeable to starting long acting inhaled steroids with a rescue inhaler which was sent to [facility] pharmacy, including nitroglycerin SL as needed for acute chest pain. The patient has a clear follow up plan with her regular cardiology office later this week in the [facility] [place] with Dr. Almeida. - ALLERGIES Allergies/Adverse Reactions: Allergies Allergy/AdvReac Type Severity Reaction Status Date / Time amoxicillin trihydrate * Allergy Nausea Verified 03/08/15 14:05 [From Augmentin] potassium clavulanate * Allergy Nausea Verified 03/08/15 14:05 [From Augmentin] morphine AdvReac Unknown Verified 03/08/15 14:05 - MEDICATIONS Home Medications: Ambulatory Orders Medication Instructions Recorded Confirmed Pantoprazole [Protonix] 40 mg PO QDAC 02/15/15 07/17/18 Simvastatin 40 mg PO QPM 02/15/15 07/17/18 Warfarin [Coumadin] 5 mg PO CARRASCO@0902/15/15 07/17/18 Losartan [Cozaar] 25 mg PO DAILY 03/13/17 07/17/18 Aspirin 81 mg PO DAILY 07/17/18 07/17/18 Isosorbide Mononitrate [Isosorbide 60 mg PO DAILY 07/17/18 07/17/18 Mononitrate ER] Metoprolol Succinate 50 mg PO DAILY 07/17/18 07/17/18 Warfarin Sodium 2.5 mg PO MOTUWETHFRSA@0900 07/17/18 07/17/18 Nitroglycerin [Nitrostat] 0.4 mg SL Q5MIN PRN #30 tablet 07/18/18 Fluticasone/Salmeterol [Advair 1 each IH BID #5 disk.w.dev 07/19/18 250-50 Diskus] Levalbuterol Tartrate [Xopenex Hfa] 15 gm IH Q4HR PRN #5 hfa.aer.ad 07/19/18 - PHYSICAL EXAM AT DISCHARGE General Appearance: positive: No acute distress, Alert, Anxious Eyes Bilateral: positive: Normal inspection, PERRL ENT: positive: ENT inspection nml, Pharynx nml, No signs of dehydration Neck: positive: Nml inspection, Thyroid nml, No JVD, Trachea midline Respiratory: positive: Chest non-tender, No respiratory distress, Other ( scattered crackles bilaterally) Cardiovascular: positive: Regular rate & rhythm, No gallop, Systolic murmur, Decreased pulse(s) Peripheral Pulses: positive: 2+ Abdomen: positive: Non-tender, No organomegaly, Nml bowel sounds, No distention Back: positive: Nml inspection Skin: positive: No rash, Warm, Dry, Other (pale) Extremities: positive: Non-tender, Full ROM, Pedal edema (chronic BLE edema), Joint swelling Neurologic/Psychiatric: positive: Oriented x3, CN's nml (2-12), Motor nml, Sensation nml, Facial droop (left facial droop-chronic), Depressed mood/affect Reflexes: Bicep (R): 3+, Bicep (L): 3+ - LABS Result Diagrams: 07/19/18 05:45 07/19/18 05:45 - DIAGNOSTIC IMAGING Diagnostic Imaging Results: Final report reviewed Diagnostic Imaging Results Comments: EXAM: CHEST RADIOGRAPHY EXAM DATE: 07/17/2018 03:47 PM. IMPRESSION: No acute cardiopulmonary abnormality. EXAM: SINGLE-ISOTOPE PHARMACOLOGICAL STRESS TEST WITH REGADENOSON. SINGLE- ISOTOPE AND TWO-DAY REST/STRESS MYOCARDIAL PERFUSION SCANS WITH TOMOGRAPHIC IMAGING, QUANTITATIVE ANALYSIS, WALL MOTION ANALYSIS AND CALCULATION OF EJECTION FRACTION. EXAM DATE: 05/27/2018 02:14 PM. CLINICAL HISTORY: Silent coronary artery disease. Atrial fibrillation. Progressive fatigue. Prior silent NV, and stenting of the right coronary artery. Prior ejection fraction 53% in 2012. Known stenoses of the left main and LAD. Ejection fraction 57%. IMPRESSION: 1. Findings suggestive of a prior partial thickness infarct of the apical half of the lateral segment. 2. Mild, reversible ischemia of the partially infarcted tissue and the basal half of the lateral segment. 3. Normal segmental and global wall motion. 4. Mild ventricular chamber enlargement. 5. Normal cardiac ejection fraction of 57%. The latter finding is unchanged when compared with the findings described in the clinical history. ECHOCARDIOGRAM: Preliminary results taken 07/18/18: Normal LV systolic function with an EF of 65-70%. Impaired relaxation consistent with Grade I diastolic dysfunction. No regional wall motion abnormalities are seen. Mild increase in the LA volume index. Normal RV systolic pressure <35 mm Hg. The RVSP at rest is 28 mm Hg. No valvular abnormalities. No pericardial effusion, the interatrial septum appears normal. - FOLLOW UP Follow Up: Disposition: 01 Home, Self Care Condition: Good Prescriptions: Levalbuterol Tartrate [Xopenex Hfa] 15 gm IH Q4HR PRN #5 hfa.aer.ad PRN Reason: Bronchospasm Nitroglycerin [Nitrostat] 0.4 mg SL Q5MIN PRN #30 tablet PRN Reason: Angina Fluticasone/Salmeterol [Advair 250-50 Diskus] 1 each IH BID #5 disk.w.dev Diet: Cardiac Activity Restrictions: Activity as Tolerated Shower Restrictions: No Driving Restrictions: No Weight Bearing: Full Weight Additional Instructions or Follow Up instructions: You were admitted for acute chest pain and after testing and two nights of observation it is not thought that you suffered any recent/current heart damage. 4 serial troponins were completed and an echocardiogram which showed no evidence of heart damage. A call was made to Cardiology, Dr. Bashir as we have maximized your medical management. He suggests that you see Dr. Almeida this and said he will assist with this to ensure you an appointment. We suggest that you just take things easy until that time and take a nitroglycerin if you feel the same neck and shoulder pain. You can take tylenol afterwards if you have a headache from the nitroglycerin. Since you continued to have the pain/discomfort, you stayed another night and a call was made to [place], Dr. Sierra, who did not suggest a transfer to their hospital. You have COPD and I have sent a long acting inhaled steroid to be taken twice daily (rinse your mouth afterwards), and a rescue inhaler. Yesterday you had a test by respiratory therapy which showed you may need oxygen with activity, but since you are not quite ready to quit smoking the inhalers are a safer choice. Please see your PCP within one week and Dr. Almeida on July 24. - TIME SPENT Time Spent in Discharge (Minutes): 55"
--- NOTE | 2018-07-18 17:43 | PROVIDER PROGRESS NOTE ---
Subjective - Prog Note Date Prog Note Date: 07/18/18 Prog Note Time: 17:42 - Subjective Pt reports feeling: Improved Subjective: Tata continues to complain of bilateral shoulder and mid-scapular pain that is intermittent and with less noticeable associated symptoms. She denies nausea , vomiting, increased shortness of breath, or a productive cough. She states that she is concerned about her blood pressure getting too low. Current Medications - Current Medications Current Medications: Active Medications Acetaminophen (Tylenol) 650 mg PO Q4HR PRN PRN Reason: Pain or Fever > 38C (100.4F) Atorvastatin Calcium (Lipitor) 20 mg PO QPM [facility] Last Admin: 07/18/18 20:53 Dose: 20 mg Hydromorphone HCl (Dilaudid Inj Carp) 1 mg IVP Q2HR PRN PRN Reason: PAIN Isosorbide Mononitrate (Imdur) 60 mg PO DAILY [facility] Last Admin: 07/18/18 08:30 Dose: 60 mg Metoprolol Succinate (Toprol Xl) 50 mg PO DAILY [facility] Last Admin: 07/18/18 08:30 Dose: 50 mg Multi-Ingredient Mouthwash/Gargle () 30 ml PO Q6H PRN PRN Reason: Heartburn Last Admin: 07/18/18 10:05 Dose: 30 ml Nicotine (Nicoderm) 1 patch TOP DAILY [facility] Last Admin: 07/18/18 08:30 Dose: 1 patch Nitroglycerin (Nitrostat) 0.4 mg SL Q5MIN PRN PRN Reason: Chest Pain Ondansetron HCl (Zofran Inj) 4 mg IVP Q4HR PRN PRN Reason: Nausea / Vomiting Ondansetron HCl (Zofran Odt) 4 mg TL Q4HR PRN PRN Reason: Nausea / Vomiting Pantoprazole Sodium (Protonix) 40 mg PO QDAC [facility] Last Admin: 07/18/18 06:51 Dose: 40 mg Polyethylene Glycol (Miralax) 17 gm PO DAILY [facility] Last Admin: 07/18/18 08:31 Dose: Not Given Sodium Chloride (Normal Saline Flush 0.9%) 10 ml IVP PRN PRN PRN Reason: NEEDED PER PROVIDER ORDERS Sodium Chloride (Normal Saline Flush 0.9%) 10 ml IVP 0100,0900,1700 [facility] Last Admin: 07/18/18 18:03 Dose: 10 ml Warfarin Sodium (Coumadin) 5 mg PO CARRASCO@0900 [facility] Warfarin Sodium (Coumadin) 2.5 mg PO MOTUWETHFRSA@0900 [facility] Last Admin: 07/18/18 08:29 Dose: 2.5 mg Pantoprazole [Protonix] 40 mg PO QDAC 02/15/15 Simvastatin 40 mg PO QPM 02/15/15 Warfarin [Coumadin] 5 mg PO CARRASCO@0900 02/15/15 Losartan [Cozaar] 25 mg PO DAILY 03/13/17 Aspirin 81 mg PO DAILY 07/17/18 Isosorbide Mononitrate [Isosorbide Mononitrate ER] 60 mg PO DAILY 07/17/18 Metoprolol Succinate 50 mg PO DAILY 07/17/18 Warfarin Sodium 2.5 mg PO MOTUWETHFRSA@0900 07/17/18 Objective - Vital Signs/Intake & Output Reviewed Vital Signs: Yes Vital Signs: Vital Signs x48h Temp Pulse Resp BP Pulse Ox 07/18/18 17:08 36.7 C 76 18 114/48 L 91 L 07/18/18 12:27 36.3 C L 83 18 112/58 L 90 L 07/18/18 10:00 63 126/44 L Intake & Output: Intake & Output 07/15/18 07/16/18 07/17/18 07/18/18 23:59 23:59 23:59 23:59 Intake Total 394.66 890.283 Output Total 250 Balance 394.66 640.283 - Objective General Appearance: positive: Alert, Mild distress, Anxious Eyes Bilateral: positive: Normal inspection, PERRL Eyes: OU Conjunctivae pale ENT: positive: ENT inspection nml, Pharyngeal erythema, Dry mucous membranes Neck: positive: Nml inspection, Thyroid nml, No JVD, Trachea midline Respiratory: positive: Chest non-tender, Wheezes, Rhonchi Cardiovascular: positive: Regular rate & rhythm, No gallop, Systolic murmur, Decreased pulse(s) Peripheral Pulses: 1+ Radial (R), 1+ Radial (L) Abdomen: positive: Non-tender, No organomegaly, Nml bowel sounds, Other (rounded , soft) Back: positive: Nml inspection Skin: positive: No rash, Warm, Dry Extremities: positive: Non-tender, Full ROM, Nml appearance, Pedal edema ( chronic BLE edema), Joint swelling Neurologic/Psychiatric: positive: Oriented x3, CN's nml (2-12), Motor nml, Weakness, Sensory loss, Facial droop (left-chronic), Depressed mood/affect Reflexes: Bicep (R): 3+, Bicep (L): 3+ - Lab Results Fish Bones: 07/18/18 04:25 07/18/18 04:25 Other Labs: Lab Results x24hrs 07/18/18 07/18/18 07/18/18 Range/Units 06:38 04:25 04:25 WBC (4.8-10.8) x10^3/uL RBC (4.20-5.40) 10^6/uL Hgb (12.0-16.0) g/dL Hct (37.0-47.0) % MCV (81.0-99.0) fL MCH (27.0-31.0) pg MCHC (32.0-36.0) g/dL RDW (12.0-15.0) % Plt Count (130-450) 10^3/uL MPV (7.9-10.8) fL Neut # (Auto) (1.5-6.6) 10^3/uL Lymph # (Auto) (1.5-3.5) 10^3/uL [place] # (Auto) (0.0-1.0) 10^3/uL Eos # (Auto) (0.0-0.7) 10^3/uL Baso # (Auto) (0.0-0.1) 10^3/uL Absolute Nucleated RBC x10^3/uL Nucleated RBC % /100WBC PT 30.3 H (9.9-12.6) secs INR 2.8 H (0.8-1.2) Anti-Xa Level 0.5 ( - 0.7) U/mL Sodium (135-145) mmol/L Potassium (3.5-5.0) mmol/L Chloride (101-111) mmol/L Carbon Dioxide (21-32) mmol/L Anion Gap (6-13) BUN (6-20) mg/dL Creatinine (0.4-1.0) mg/dL Estimated GFR (MDRD) (>89) Glucose (70-100) mg/dL Calcium (8.5-10.3) mg/dL Total Bilirubin (0.2-1.0) mg/dL AST (10-42) IU/L ALT (10-60) IU/L Alkaline Phosphatase (42-121) IU/L Troponin I (<0.49) ng/mL B-Natriuretic Peptide (5-100) pg/mL Total Protein (6.7-8.2) g/dL Albumin (3.2-5.5) g/dL Globulin (2.1-4.2) g/dL Albumin/Globulin Ratio (1.0-2.2) TSH 1.40 (0.34-5.60) uIU/mL 07/18/18 07/18/18 07/18/18 Range/Units 04:25 04:25 04:25 WBC (4.8-10.8) x10^3/uL RBC (4.20-5.40) 10^6/uL Hgb (12.0-16.0) g/dL Hct (37.0-47.0) % MCV (81.0-99.0) fL MCH (27.0-31.0) pg MCHC (32.0-36.0) g/dL RDW (12.0-15.0) % Plt Count (130-450) 10^3/uL MPV (7.9-10.8) fL Neut # (Auto) (1.5-6.6) 10^3/uL Lymph # (Auto) (1.5-3.5) 10^3/uL [place] # (Auto) (0.0-1.0) 10^3/uL Eos # (Auto) (0.0-0.7) 10^3/uL Baso # (Auto) (0.0-0.1) 10^3/uL Absolute Nucleated RBC x10^3/uL Nucleated RBC % /100WBC PT (9.9-12.6) secs INR (0.8-1.2) Anti-Xa Level ( - 0.7) U/mL Sodium 133 L (135-145) mmol/L Potassium 3.8 (3.5-5.0) mmol/L Chloride 98 L (101-111) mmol/L Carbon Dioxide 30 (21-32) mmol/L Anion Gap 5.0 L (6-13) BUN 14 (6-20) mg/dL Creatinine 0.9 (0.4-1.0) mg/dL Estimated GFR (MDRD) 61 L (>89) Glucose 113 H (70-100) mg/dL Calcium 8.7 (8.5-10.3) mg/dL Total Bilirubin 0.4 (0.2-1.0) mg/dL AST 16 (10-42) IU/L ALT < 10 L (10-60) IU/L Alkaline Phosphatase 61 (42-121) IU/L Troponin I < 0.04 (<0.49) ng/mL B-Natriuretic Peptide 222 H (5-100) pg/mL Total Protein 6.2 L (6.7-8.2) g/dL Albumin 3.3 (3.2-5.5) g/dL Globulin 2.9 (2.1-4.2) g/dL Albumin/Globulin Ratio 1.1 (1.0-2.2) TSH (0.34-5.60) uIU/mL 07/18/18 07/18/18 07/17/18 Range/Units 04:25 00:40 21:25 WBC 9.0 (4.8-10.8) x10^3/uL RBC 3.89 L (4.20-5.40) 10^6/uL Hgb 9.9 L (12.0-16.0) g/dL Hct 30.3 L (37.0-47.0) % MCV 77.9 L (81.0-99.0) fL MCH 25.5 L (27.0-31.0) pg MCHC 32.7 (32.0-36.0) g/dL RDW 15.4 H (12.0-15.0) % Plt Count 303 (130-450) 10^3/uL MPV 7.5 L (7.9-10.8) fL Neut # (Auto) 5.9 (1.5-6.6) 10^3/uL Lymph # (Auto) 1.9 (1.5-3.5) 10^3/uL [place] # (Auto) 0.6 (0.0-1.0) 10^3/uL Eos # (Auto) 0.5 (0.0-0.7) 10^3/uL Baso # (Auto) 0.1 (0.0-0.1) 10^3/uL Absolute Nucleated RBC 0.00 x10^3/uL Nucleated RBC % 0.0 /100WBC PT (9.9-12.6) secs INR (0.8-1.2) Anti-Xa Level 0.4 ( - 0.7) U/mL Sodium (135-145) mmol/L Potassium (3.5-5.0) mmol/L Chloride (101-111) mmol/L Carbon Dioxide (21-32) mmol/L Anion Gap (6-13) BUN (6-20) mg/dL Creatinine (0.4-1.0) mg/dL Estimated GFR (MDRD) (>89) Glucose (70-100) mg/dL Calcium (8.5-10.3) mg/dL Total Bilirubin (0.2-1.0) mg/dL AST (10-42) IU/L ALT (10-60) IU/L Alkaline Phosphatase (42-121) IU/L Troponin I < 0.04 (<0.49) ng/mL B-Natriuretic Peptide (5-100) pg/mL Total Protein (6.7-8.2) g/dL Albumin (3.2-5.5) g/dL Globulin (2.1-4.2) g/dL Albumin/Globulin Ratio (1.0-2.2) TSH (0.34-5.60) uIU/mL ABX Reporting Has patient been on IV antibiotics over the past 48 hours?: No Assessment/Plan - Problem List (1) Chest pain, rule out acute myocardial infarction Impression: The patient was in her usual state of health today while shopping at [employer]; walking and pushing a shopping cart. She developed mid-sternal chest pain with severe bilateral shoulder and neck pain that radiated to the middle (center) of her shoulder blades. Associated symptoms included nausea, diaphoresis with clammy skin, dizziness as if she may faint, shortness of breath, and mild palpitations. This pain was brought on by activity, only slightly improved with rest, and nearly fully resolved after medications were given in the ED, nitroglycerin, IVFs, and heparin. The patient admits to her previous episodes of chest pain, but notes this to be much more severe. Prior to this admission, she was smoking 1 PPD and has been a life long smoker. She has ruled out for acute CO by having negative troponins x3, no significant EKG changes and preliminary echocardiogram results show no wall motion abnormalities. She has several risk factors; Age, tobacco use, sedentary life style and she has had previous vascular disease (+CO & + CVA with a chronic left facial droop). The patient had a stress test which showed reversible ischemia of the partially infarcted tissue and the basal half of the lateral segment on 05/27/18. She has known stenoses of the left main and LAD. She had a clinic appointment with Dr. Bashir about a week ago in which the results were discussed. The patient did not have a full resolution of her symptoms and continued to have labile mid-scapular back pain that was intermittent and not associated with any other symptoms. A call to her primary Plate Driller Dr. Bashir was made who recommended a call to [place]. I spoke with Dr. Sierra, who suggests a cardiac cath on an outpatient bases with her ruling out. However, with her ongoing shoulder/mid scapular pain of unknown etiology, she would not be in a safe place to be discharged home and this is considered unstable angina until proven otherwise. I met with her and her son, João and they agree that staying one more night due to her pain is the best option. Plan: Admit to inpatient for further management of her chest pain. Monitor for acute or worsening chest pain. Order EKG and troponins in that case. (2) Tobacco dependence Impression: The patient has been a life long smoker of at least 1 PPD since the age of 16 years. She states that she has had very few times in her life in which she quit. She has had negative consequences from this; COPD, CO and a CVA. She is not interested in quitting at this time as she has just lost her sister and the is coming up in one week in [facility]. Plan: Nicotine patch daily and encourage pulmonary rehab upon discharge/ cessation. (3) Shoulder pain, bilateral Impression: The patient denies recent falls, injuries, MVAs, loss of consciousness, or other musculoskeletal causes of her bilateral shoulder and neck pain. This came on suddenly and until proven otherwise is likely of cardiac etiology. The patient denies prior injuries or falls. Plan: Treat with dilaudid if severe (check with morphine allergy first), give Nitro SL, or APAP. Obtain stat EKG during acute chest pain. Qualifiers: Chronicity: acute Qualified Code(s): M25.511 - Pain in right shoulder; M25.512 - Pain in left shoulder; M25.512 - Pain in left shoulder (4) Sinusitis Impression: The patient likely has this as a consequence of her tobacco dependence. She denies the use of nasal sprays or a history of nasal polyps. She now requires oxygen, and this will likely add to her general nasal discomfort. I will recommend daily nasal sprays and a LABA upon discharge. Plan: continue to monitor. Qualifiers: Sinusitis location: maxillary Chronicity: acute Recurrence: not specified as recurrent Qualified Code(s): J01.00 - Acute maxillary sinusitis, unspecified (5) Vertigo Impression: The patient has dizziness as a primary complaint and claims to have had this in the past. Today upon exam, this symptom has became less apparent. Plan: Continue fall precautions. (6) History of coronary artery stent placement Impression: The patient had her last stent placement ~10 years ago and no longer takes plavix. She continues to be dependent on tobacco. She recently saw Dr. Bashir for her stress test and holter monitor results from May. As per myocardial perfusion stress test results; the patient has a stent in her RCA and known stenoses of the left main and LAD. Plan: Continue to monitor for further acute chest pain. (7) History of CVA (cerebrovascular accident) Impression: The patient demonstrates a left sided weakness and this is appreciated when the patient is asked to smile. She is neuro-intact and the patient states that she does not have any other post CVA residuals and this was first noticed during a routine eye appointment. This is likely a consequence of her CAD that she has developed due to her tobacco dependence. The patient has a head CT from February of 2017 in [place] which showed no acute stroke or bleeding. She states that she has never seen a specialist since learning of her facial droop. Plan: Continue to monitor for neuro changes. (8) CAD (coronary artery disease) Impression: The patient has known coronary disease and believes that her last stent was about 10 years ago in which they attempted the radial artery, and resorted to the femoral location. She is no longer prescribed Plavix. She remains on a statin, Imdur (nitrate), beta osiel and warfarin at home, that has been continued here. Plan: Continue to monitor for worsening of symptoms. Qualifiers: Associated angina: with unspecified angina (9) GERD (gastroesophageal reflux disease) Impression: The patient has a known history of this and is prescribed Protonix at home. I have added a GI cocktail as needed. This was given today as per my request to rule out GI sources of this angina. This disease may be a contributing factor to her acute chest pain. Plan: continue to monitor. (10) COPD (chronic obstructive pulmonary disease) Impression: The patient has this disease as a consequence of her greater than 30 year smoking history. She is not prescribed any long acting steroid inhalers or rescue inhalers. The patient flunked her walking saturation oxygen test today with our respiratory therapy staff. She will require oxygen during ambulation. Nursing reports that she was found to be 88% on room air as to why this was ordered. She has required oxygen since this morning and crackles can be heard from the bedside. I will consider a chest x-ray if she continues to show signs of pulmonary congestion. Plan: continue to monitor vital signs and respiratory status.
[2018-07-18] MEDS: ATORVASTATIN 10 MG TABLET PO SCH (20:53)
[2018-07-19] MEDS: SODIUM CHLORIDE FLUSH 0.9% 10 ML SYRINGE IVP SCH ×2 (03:30→08:22)
[2018-07-19 06:11] LABS: BASOPHILS # (AUTO) 0.1 10^3/uL (0.0-0.1); BASOPHILS % (AUTO) 0.8 %; EOSINOPHILS # (AUTO) 0.4 10^3/uL (0.0-0.7); EOSINOPHILS % (AUTO) 4.5 %; HGB - HEMOGLOBIN 10.3 g/dL (12.0-16.0); LYMPHOCYTES # (AUTO) 1.9 10^3/uL (1.5-3.5); LYMPHOCYTES % (AUTO) 23.5 %; MEAN CORPUSCULAR HEMOGLOBIN 25.6 pg (27.0-31.0); MEAN CORPUSCULAR HGB CONC 32.7 g/dL (32.0-36.0); MEAN CORPUSCULAR VOLUME 78.3 fL (81.0-99.0); MEAN PLATELET VOLUME 7.7 fL (7.9-10.8); MONOCYTES # (AUTO) 0.8 10^3/uL (0.0-1.0); MONOCYTES % (AUTO) 9.7 %; NEUTROPHILS % (AUTO) 61.5 %; PLT - PLATELET COUNT 305 10^3/uL (130-450); RED BLOOD COUNT 4.01 10^6/uL (4.20-5.40); RED CELL DISTRIBUTION WIDTH 15.4 % (12.0-15.0); WHITE BLOOD COUNT 8.1 x10^3/uL (4.8-10.8)
[2018-07-19 06:21] LABS: ALBUMIN 3.7 g/dL (3.2-5.5); ALBUMIN/GLOBULIN RATIO 1.4 (1.0-2.2); ALKALINE PHOSPHATASE 59 IU/L (42-121); ALT ALANINE AMINOTRANSFERASE < 10 IU/L (10-60); AST ASPARTATE AMINOTRANSFERASE 15 IU/L (10-42); BILIRUBIN,TOTAL 0.8 mg/dL (0.2-1.0); BUN - BLOOD UREA NITROGEN 11 mg/dL (6-20); CALCIUM 8.9 mg/dL (8.5-10.3); CARBON DIOXIDE - CO2 29 mmol/L (21-32); CHLORIDE 102 mmol/L (101-111); CREATININE 0.8 mg/dL (0.4-1.0); GFR - MDRD 70 (>89); GLUCOSE 103 mg/dL (70-100); SODIUM 140 mmol/L (135-145); TOTAL PROTEIN 6.3 g/dL (6.7-8.2)
[2018-07-19] MEDS: PANTOPRAZOLE 40 MG TABLET PO SCH (06:24)
[2018-07-19] MEDS: METOPROLOL SUCCINATE 50 MG TABLET PO SCH (08:20)
[2018-07-19] MEDS: ISOSORBIDE MONONITRATE ER 30 MG TABLET PO SCH (08:20)
[2018-07-19] MEDS: NICOTINE 14 MG PATCH TOP SCH (08:20)
[2018-07-19] MEDS: POLYETHYLENE GLYCOL 3350 17 GM PACKET PO SCH (08:21)
[2018-07-19] MEDS ORDERED: ISOSORBIDE MONONITRATE ER 30 MG TABLET PO SCH (09:31)
[2018-07-19 12:33] VITALS: BP 112/54
[2018-07-20] MEDS ORDERED: WARFARIN 5 MG TABLET PO SCH (09:00)
== END 2018-07-19 12:40 | disposition home or self-care (01) | DRG 303 ==
LOC: EDUNIT# → ED 14:26 → OBS 18:04 → OBSVTOIN 07-18 17:41 → MS2 07-18 18:19
PROVIDERS: ADMIT Nurse Practitioner; ATTEND Nurse Practitioner
DX: R07.89 Other chest pain (principal); I25.110 Atherosclerotic heart disease of native coronary artery with unstable angina pectoris; I69.954 Hemiplegia and hemiparesis following unspecified cerebrovascular disease affecting left non-dominant side; M25.511 Pain in right shoulder; M25.512 Pain in left shoulder; I69.992 Facial weakness following unspecified cerebrovascular disease; J01.00 Acute maxillary sinusitis, unspecified; K21.9 Gastro-esophageal reflux disease without esophagitis; F17.210 Nicotine dependence, cigarettes, uncomplicated; I25.119 Atherosclerotic heart disease of native coronary artery with unspecified angina pectoris; J32.9 Chronic sinusitis, unspecified; J44.9 Chronic obstructive pulmonary disease, unspecified; I48.91 Unspecified atrial fibrillation; I10 Essential (primary) hypertension; E78.5 Hyperlipidemia, unspecified; R42 Dizziness and giddiness; H54.7 Unspecified visual loss; Z79.01 Long term (current) use of anticoagulants; I25.2 Old myocardial infarction; Z95.5 Presence of coronary angioplasty implant and graft; Z79.82 Long term (current) use of aspirin; Z86.79 Personal history of other diseases of the circulatory system; Z99.81 Dependence on supplemental oxygen
CPT/HCPCS: 36415; 71046; 80053; 83690; 83880; 84443; 84484; 85025; 85520; 85610; 93005; 93306; 94761; 96365; 96366; 96367; 96375; 99283; 99284; 99285

== ENCOUNTER 2018-08-20 15:15 | Outpatient (CLI) | payer MEDICARE, OTHER ==
--- NOTE | 2018-08-21 10:39 | Ultrasound Report ---
Reason: L LEG PAIN Procedure Date: 08/20/2018 Accession Number: [id number] / [id number] Procedure: US - Duplex Lwr Ext Arterial LT CPT Code: FULL RESULT: EXAM: LEFT LOWER EXTREMITY ARTERIAL DOPPLER ULTRASOUND EXAM DATE: 08/20/2018 03:35 PM. CLINICAL HISTORY: Left leg pain. COMPARISON: None. TECHNIQUE: Real-time sonographic vascular imaging was performed by the egg smeller, utilizing color-flow, Doppler flow, and spectral analysis. Multiple access representative static images were saved for review. FINDINGS: Morphologically, there is patchy echogenic atherosclerotic disease in the STEAM BOX OPERATOR, SFA, popliteal artery as well as to a lesser degree below the knee. Arteries in the left lower extremity are patent with detected flow in 3 vessels below the knee. Waveforms in the posterior tibial artery and anterior tibial artery are monomorphic with borderline preserved upstroke. Waveforms in the peroneal artery display a preserved upstroke. The dorsalis pedis waveform is tardus parvus. Left Lower Extremity: STEAM BOX OPERATOR: PSV 167.3 cm/sec. PSFA: PSV 100.8 cm/sec. MSFA: PSV 129.8 cm/sec. DSFA: PSV 122.3 cm/sec. PFA: PSV 79.4 cm/sec. POP: PSV 73.2 cm/sec. CHELSEY: PSV 48.7 cm/sec. BAKERY WORKER: PSV 36.4 cm/sec. URSULA: PSV 103.1 cm/sec. DPA: PSV 48.7 cm/sec. IMPRESSION: Patent three-vessel vascularity with detectable flow in the dorsalis pedis artery with progressive blunting of waveforms. The exam is less suggestive of inflow disease given that the common femoral, profunda and SFA arterial waveform is triphasic. Recommend correlation to ankle brachial indices for localization. RADIA
== END 2018-08-20 15:16 | disposition home or self-care (01) ==
LOC: DI 15:15
PROVIDERS: ATTEND Internal Medicine
DX: M79.605 Pain in left leg (principal)

== ENCOUNTER 2018-08-26 08:00 | Outpatient (CLI) | payer MEDICARE, OTHER | END 2018-08-26 08:01 | LOC: LAB.N 08:00 | PROVIDERS: ATTEND Internal Medicine | DX: I48.91 Unspecified atrial fibrillation (principal); Z79.01 Long term (current) use of anticoagulants | CPT/HCPCS: 85610 ==

== ENCOUNTER 2018-09-05 12:13 | Outpatient (CLI) | payer MEDICARE, OTHER ==
--- NOTE | 2018-09-05 16:25 | MRI Report ---
Reason: BACK PAIN,LEG PAIN Procedure Date: 09/05/2018 Accession Number: [id number] / [id number] Procedure: MRI - Lumbar Spine W/O CPT Code: FULL RESULT: EXAM: MRI LUMBAR SPINE WITHOUT CONTRAST EXAM DATE: 09/05/2018 01:39 PM. CLINICAL HISTORY: BACK PAIN,LEG PAIN. COMPARISON: LUMBAR SPINE 03/30/2011 1:59 PM. TECHNIQUE: Multiplanar, multisequence T1-weighted and fluid-sensitive sequences of the lumbar spine from T12 to S1 without contrast. Other: None. FINDINGS: Spinal Canal: The conus terminates at T12-L1. The conus medullaris and cauda equina are unremarkable. Alignment: Mild rotatory levoscoliosis of the lumbar spine with the apex at the L3 level, Mclain angle 8 degrees. Grade 1 anterolisthesis L2 on L3 measuring 3 mm. Bone Marrow: Transitional level with sacralized L5. No gross fractures. A T1 and T2 hyperintense lesion within the T12 vertebral body is favored to represent a hemangioma. No bone marrow replacement. Disk Levels/Facets: T12-L1: No significant central canal or foraminal narrowing. No interval progression. L1-L2: Moderate bilateral facet arthropathy and ligamentum flavum hypertrophy mild central canal narrowing, slightly progressed. Mild bilateral foraminal narrowing, slightly progressed. L2-L3: Mild disk height loss and desiccation. Mild diffuse disk bulge. Mild to moderate bilateral facet arthropathy and ligamentum flavum hypertrophy. Mild to moderate central canal narrowing, slightly progressed. Mild left foraminal narrowing. No right foraminal narrowing. The foraminal narrowing is similar. L3-L4: Mild disk height loss and desiccation. Moderate diffuse disk bulge. Moderate bilateral facet arthropathy and ligamentum flavum hypertrophy. Mild to moderate central canal narrowing, slightly progressed. Mild to moderate left and mild right foraminal narrowing the foraminal narrowing is slightly progressed. Mild left lateral recess narrowing with mass-effect on traversing left L4 nerve, slightly increased. L4-L5: Moderate diffuse disk bulge moderate to severe left and moderate right facet arthropathy. No significant central canal narrowing. Moderate left and mild to moderate right foraminal narrowing. The foraminal narrowing has progressed since the prior study. Moderate to severe left lateral recess narrowing with mass-effect on traversing left L5 nerve, increased since the prior study. L5-S1: Transitional level. No significant central canal or foraminal narrowing. Musculature: Normal. No edema or fatty atrophy. Other: The partially visualized retroperitoneum is unremarkable. IMPRESSION: 1. Redemonstration mild to moderate multilevel degenerative spondylosis, as detailed above and summarized below. Compared to the prior MR lumbar spine from 03/30/2011, slight interval progression in central canal/foraminal narrowing at several levels as detailed. No evidence of acute fracture or malalignment. No bone marrow edema. No cord signal abnormality. Transitional anatomy is again noted with partially sacralized L5. 2. Mild rotatory levoscoliosis of the lumbar spine with the apex at the L3 level, Mclain angle 8 degrees. Grade 1 anterolisthesis L2 on L3 measuring 3 mm. 3. L1-L2: Mild central canal narrowing, slightly progressed. Mild bilateral foraminal narrowing, slightly progressed. 4. L2-L3: Mild to moderate central canal narrowing, slightly progressed. Mild left foraminal narrowing. No right foraminal narrowing. The foraminal narrowing is similar. 5. L3-L4: Mild to moderate central canal narrowing, slightly progressed. Mild to moderate left and mild right foraminal narrowing the foraminal narrowing is slightly progressed. Mild left lateral recess narrowing with mass-effect on traversing left L4 nerve, slightly increased. 6. L4-L5: No significant central canal narrowing. Moderate left and mild to moderate right foraminal narrowing. The foraminal narrowing has progressed since the prior study. Moderate to severe left lateral recess narrowing with mass-effect on traversing left L5 nerve, increased since the prior study. Comment: The following findings are so common in adults without low back pain that while we report their presence, they must be interpreted with caution and in the context of the clinical situation. (Reference Shlomok et al, Spine 2001) Prevalence of findings in patients without low back pain: Disk degeneration (any evidence): 92% Disk desiccation/T2 signal loss: 83% Disk height loss: 56% Disk bulge: 64% Disk protrusion: 32% Annular tear/high intensity zone: 38% [facility]
== END 2018-09-05 12:14 | disposition home or self-care (01) ==
LOC: DI 12:13
PROVIDERS: ATTEND Internal Medicine
DX: M47.896 Other spondylosis, lumbar region (principal); M48.061 Spinal stenosis, lumbar region without neurogenic claudication; M41.86 Other forms of scoliosis, lumbar region; M79.605 Pain in left leg
CPT/HCPCS: 72148

== ENCOUNTER 2018-10-02 13:59 | Outpatient (CLI) | payer MEDICARE, OTHER ==
[2018-10-02 19:40] LABS: INR 1.7 (0.8-1.2); PT - PROTHROMBIN TIME 19.3 secs (9.9-12.6)
== END 2018-10-02 14:00 ==
LOC: LAB.N 13:59
PROVIDERS: ATTEND Internal Medicine
DX: I48.91 Unspecified atrial fibrillation (principal); Z79.01 Long term (current) use of anticoagulants
CPT/HCPCS: 36415; 85610

== ENCOUNTER 2018-10-30 14:40 | Outpatient (CLI) | payer MEDICARE, OTHER | END 2018-10-30 23:59 | LOC: LAB.N 14:40 | PROVIDERS: ATTEND Internal Medicine | DX: I48.91 Unspecified atrial fibrillation (principal); Z79.01 Long term (current) use of anticoagulants | CPT/HCPCS: 85610 ==

== ENCOUNTER 2018-12-04 08:00 | Outpatient (CLI) | payer MEDICARE, OTHER | END 2018-12-04 23:59 | disposition home or self-care (01) | LOC: LAB.N 08:00 | PROVIDERS: ATTEND Internal Medicine | DX: I48.91 Unspecified atrial fibrillation (principal); Z79.01 Long term (current) use of anticoagulants | CPT/HCPCS: 85610 ==

== ENCOUNTER 2019-01-05 08:00 | Outpatient (CLI) | payer MEDICARE, OTHER | END 2019-01-05 23:59 | disposition home or self-care (01) | LOC: LAB.N 08:00 | PROVIDERS: ATTEND Internal Medicine | DX: I48.91 Unspecified atrial fibrillation (principal) | CPT/HCPCS: 85610 ==

== ENCOUNTER 2019-02-05 13:05 | Outpatient (CLI) | payer MEDICARE, OTHER | END 2019-02-05 23:59 | disposition home or self-care (01) | LOC: LAB.N 13:05 | PROVIDERS: ATTEND Internal Medicine | DX: I48.91 Unspecified atrial fibrillation (principal); Z79.01 Long term (current) use of anticoagulants | CPT/HCPCS: 85610 ==

== ENCOUNTER 2019-06-23 17:39 | Outpatient (CLI) | payer MEDICARE, OTHER | END 2019-06-23 17:40 | disposition critical access hospital (66) | LOC: EMS 17:39 | PROVIDERS: ATTEND Surgery | DX: R41.0 Disorientation, unspecified (principal); R51 Headache; R42 Dizziness and giddiness; R11.0 Nausea; R20.0 Anesthesia of skin | CPT/HCPCS: A0425; A0427 ==

== ENCOUNTER 2019-06-23 18:03 | Inpatient (IN) | payer MEDICARE, OTHER ==
--- NOTE | 2019-06-23 18:41 | CT Report ---
Reason: fall, head injury Procedure Date: 06/23/2019 Accession Number: [id number] / [id number] Procedure: CT - HEAD WO CPT Code: FULL RESULT: EXAM: CT HEAD WITHOUT IV CONTRAST EXAM DATE: 06/23/2019 06:23 PM. CLINICAL HISTORY: Fall, head injury. COMPARISON: CT head without 03/13/2017. TECHNIQUE: Multiaxial CT images were obtained from the foramen magnum to the vertex. Reformats: Sagittal and coronal. IV contrast: None. In accordance with CT protocol optimization, one or more of the following dose reduction techniques were utilized for this exam: automated exposure control, adjustment of mA and/or KV based on patient size, or use of iterative reconstructive technique. FINDINGS: Prominent and progressive ventriculomegaly. Diffuse brain volume loss. Extensive patchy and confluent abnormal white matter hypodensity. No midline shift or developing abnormal subdural fluid collection. No evidence for acute hemorrhage or acute cortical infarct. Cavernous and paraclinoid ICA calcification. Chronic partial opacity of the inferior right maxillary sinus. No displaced skull fracture. IMPRESSION: 1. No CT evidence of acute intracranial abnormality, no acute hemorrhage. 2. Progressive brain volume loss and progressive ventriculomegaly. There may be a component of central greater than peripheral brain atrophy but normal pressure hydrocephalus should also be considered. 3. Prominent and potentially progressive white matter hypoattenuation potentially attributable to aging and chronic microangiopathy. 4. Intracranial atherosclerosis. RADIA
--- NOTE | 2019-06-23 18:46 | CT Report ---
Reason: fall, head injury, ALOC Procedure Date: 06/23/2019 Accession Number: [id number] / [id number] Procedure: CT - CERVICAL SPINE WO CPT Code: FULL RESULT: EXAM: CT CERVICAL SPINE WITHOUT CONTRAST DATE: 06/23/2019 06:23 PM. HISTORY: Pain post injury after a fall. COMPARISONS: No prior cervical spine CT. TECHNIQUE: Thin-section axial images were acquired of the cervical spine without contrast. Post-processing: Coronal and sagittal reformats. Other: None. In accordance with CT protocol optimization, one or more of the following dose reduction techniques were utilized for this exam: automated exposure control, adjustment of mA and/or KV based on patient size, or use of iterative reconstructive technique. FINDINGS: No acute fracture or dislocation. No focal paravertebral soft tissue thickening. Multilevel disk degeneration, most severe at C6-C7. Prominent multilevel hypertrophic degenerative facet arthropathy, especially severe on the right at C3-C4 and C4-C5. The osseous contours of the central canal are maintained. Multilevel foraminal stenosis from uncinate process spurring and facet arthropathy, most severe on the right at C4-C5 and C5-C6. Extensive multifocal arterial atherosclerotic calcifications. Probable apical pulmonary emphysema. IMPRESSION: Chronic degenerative changes. Degenerative stenosis is present as described. No acute fracture or dislocation. RADIA
--- NOTE | 2019-06-23 18:48 | ED Physician Documentation ---
PD HPI ALTERED MENTAL STATUS - Stated complaint Stated Complaint: POSS CVA - Chief complaint Chief Complaint: Neuro - History obtained from History obtained from: Patient, Family, EMS - History of Present Illness Timing - onset: Unknown Timing - duration: Other (unknown) Timing - details: Gradual onset Quality / character: Confused, Disoriented Associated symptoms: Headache (L sideded) Contributing factors: Anticoagulated (warfarin) Basline status: Alert and oriented X 3, Ambulatory, Independent Recently seen: Not recently seen - Additional information Additional information: Patient was last seen normal yesterday. Her son found her slumped against to the chair on the ground earlier today. States that her mental status is significantly altered. 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 Cardiovascular: Coronary stent, Cardiac catheterization, Vascular surgery, Angioplasty HEENT: Tonsil/Adenoidectomy - Present Medications Home Medications: Ambulatory Orders Medication Instructions Recorded Confirmed Pantoprazole [Protonix] 40 mg PO QDAC 02/15/15 06/24/19 Simvastatin 40 mg PO QPM 02/15/15 06/24/19 Losartan [Cozaar] 25 mg PO DAILY 03/13/17 07/17/18 Aspirin 81 mg PO DAILY 07/17/18 06/24/19 Isosorbide Mononitrate [Isosorbide 60 mg PO DAILY 07/17/18 07/17/18 Mononitrate ER] Warfarin Sodium 2.5 mg PO MOWEFR@0900 07/17/18 06/24/19 Nitroglycerin [Nitrostat] 0.4 mg SL Q5MIN PRN #30 tablet 07/18/18 06/24/19 Fluticasone/Salmeterol [Advair 1 each IH BID #5 disk.w.dev 07/19/18 250-50 Diskus] Acetaminophen [Tylenol Extra 1,000 mg PO TID PRN 06/24/19 06/24/19 Strength] Albuterol Sulf [Ventolin Hfa 2 puffs INH QID 06/24/19 06/24/19 Inhaler] Ascorbic Acid [Vitamin C] 500 mg PO DAILY 06/24/19 06/24/19 Calcium Carbonate [Tums (Calcium 500 mg PO TID 06/24/19 06/24/19 Carbonate 500mg)] Ferrous Gluconate [Iron] 240 mg PO DAILYWM 06/24/19 06/24/19 Furosemide 10 mg PO DAILY 06/24/19 06/24/19 Magnesium Oxide [Mag Ox] 400 mg PO 0800 06/24/19 06/24/19 Metoprolol Succinate [Toprol Xl] 25 mg PO DAILY 06/24/19 06/24/19 Polyethylene Glycol 3350 [Miralax] 17 gm PO DAILY PRN 06/24/19 06/24/19 Warfarin Sodium 3 mg PO SUTUTHSA@0900 06/24/19 06/24/19 - Allergies Allergies/Adverse Reactions: Allergies Allergy/AdvReac Type Severity Reaction Status Date / Time amoxicillin trihydrate * Allergy Nausea Verified 03/08/15 14:05 [From Augmentin] potassium clavulanate * Allergy Nausea Verified 03/08/15 14:05 [From Augmentin] morphine AdvReac Unknown Verified 03/08/15 14:05 - Social History Does the pt smoke?: No Smoking Status: Current every day smoker Does the pt drink ETOH?: Yes Does the pt have substance abuse?: No - POLST Patient has POLST: No POLST Status: Full Code PD ED PE NORMAL - Vitals Vital signs reviewed: Yes - General General: No acute distress, Well developed/nourished, Other (Alert, oriented to person and place.) - HEENT HEENT: PERRL, Moist mucous membranes, Other (Slight ecchymosis to the left scalp. 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, No motor deficit, No sensory deficit, Normal speech Eye Opening: To Voice Motor: Obeys Commands Verbal: Confused GCS Score: 13 - Psych Psych: Normal mood, Normal affect Results - Vitals Vitals: Vital Signs - 24 hr 06/23/19 06/23/19 06/23/19 18:05 18:45 19:37 Temperature 36.8 C Heart Rate 102 H 101 H 103 H Respiratory 16 19 19 Rate Blood Pressure 181/106 H 159/100 H 166/95 H O2 Saturation 99 99 97 Oxygen O2 Source Room air - EKG (time done) 1830 Rate: Rate (enter#) (97) Rhythm: Atrial fibrillation [place]: Normal QRS: Normal Ischemia: Normal ST segments - Labs Labs: Microbiology 06/23/19 19:52 Urine Culture - Preliminary Urine,Catheterized CULTURE IN PROGRESS. RESULTS TO FOLLOW. Laboratory Tests 06/23/19 06/23/19 06/23/19 18:39 18:39 18:39 WBC 10.4 RBC 5.11 Hgb 14.9 Hct 46.1 MCV 90.2 MCH 29.2 MCHC 32.3 RDW 13.4 Plt Count 229 MPV 10.1 Neut # (Auto) 8.0 H Lymph # (Auto) 1.4 L [place] # (Auto) 0.8 Eos # (Auto) 0.1 Baso # (Auto) 0.0 Absolute Nucleated RBC 0.00 Nucleated RBC % 0.0 PT 21.1 H INR 1.9 H Sodium 144 Potassium 3.3 L Chloride 101 Carbon Dioxide 30 Anion Gap 13.0 BUN 19 Creatinine 0.9 Estimated GFR (MDRD) 61 L Glucose 191 H Calcium 10.0 Total Bilirubin 0.8 AST 18 ALT 11 Alkaline Phosphatase 60 Total Protein 7.4 Albumin 4.0 Globulin 3.4 Albumin/Globulin Ratio 1.2 Lipase 20 L Urine Color Urine Clarity Urine pH Ur Specific [place] Urine Protein Urine Glucose (UA) Urine Ketones Urine Occult Blood Urine Nitrite Urine Bilirubin Urine Urobilinogen Ur Leukocyte Esterase Urine RBC Urine WBC Urine WBC Clumps Ur Squamous Epith Cells Urine Bacteria Ur Microscopic Review Urine Culture Comments 06/23/19 19:52 WBC RBC Hgb Hct MCV MCH MCHC RDW Plt Count MPV Neut # (Auto) Lymph # (Auto) [place] # (Auto) Eos # (Auto) Baso # (Auto) Absolute Nucleated RBC Nucleated RBC % PT INR Sodium Potassium Chloride Carbon Dioxide Anion Gap BUN Creatinine Estimated GFR (MDRD) Glucose Calcium Total Bilirubin AST ALT Alkaline Phosphatase Total Protein Albumin Globulin Albumin/Globulin Ratio Lipase Urine Color YELLOW Urine Clarity CLEAR Urine pH 5.5 Ur Specific [place] 1.020 Urine Protein NEGATIVE Urine Glucose (UA) NEGATIVE Urine Ketones NEGATIVE Urine Occult Blood NEGATIVE Urine Nitrite POSITIVE H Urine Bilirubin NEGATIVE Urine Urobilinogen 0.2 (NORMAL) Ur Leukocyte Esterase SMALL H Urine RBC None Seen Urine WBC >25 H Urine WBC Clumps PRESENT Ur Squamous Epith Cells FEW Squamous Urine Bacteria Many H Ur Microscopic Review INDICATED Urine Culture Comments INDICATED - Rads (name of study) Head CT Radiology: Prelim report reviewed, EMP read contemporaneously, See rad report (No acute intracranial abnormality) Cervical spine CT Radiology: Prelim report reviewed, EMP read contemporaneously, See rad report (No acute Abnormality) PD MEDICAL DECISION MAKING - ED course Complexity details: reviewed results, re-evaluated patient, considered differential, d/w patient, d/w family, d/w acquisition consultant ED course: Patient with a nonfocal neurological exam. Presents with altered mental status. Exam is not consistent with stroke. Does have a UTI. Will treat for this. No evidence of sepsis. Given Rocephin. Discussed the case with the hospitalist, Dr. Ortega who accepts. This document was made in part using voice recognition software. While efforts are made to proofread this document, sound alike and grammatical errors may oc cur. Departure - Departure Disposition: 66 [facility] DC/Xfer Clinical Impression: Altered mental status Qualifiers: Altered mental status type: unspecified Qualified Code(s): R41.82 - Altered mental status, unspecified UTI (urinary tract infection) Qualifiers: Urinary tract infection type: acute cystitis Hematuria presence: without hematuria Qualified Code(s): N30.00 - Acute cystitis without hematuria Condition: Stable Discharge Date/Time: 06/23/19 20:55
[2019-06-23 18:52] LABS: BASOPHILS % (AUTO) 0.4 %; EOSINOPHILS # (AUTO) 0.1 10^3/uL (0.0-0.7); EOSINOPHILS % (AUTO) 1.2 %; HGB - HEMOGLOBIN 14.9 g/dL (12.0-16.0); LYMPHOCYTES # (AUTO) 1.4 10^3/uL (1.5-3.5); LYMPHOCYTES % (AUTO) 13.5 %; MEAN CORPUSCULAR HEMOGLOBIN 29.2 pg (27.0-31.0); MEAN CORPUSCULAR HGB CONC 32.3 g/dL (32.0-36.0); MEAN CORPUSCULAR VOLUME 90.2 fL (81.0-99.0); MEAN PLATELET VOLUME 10.1 fL (7.9-10.8); MONOCYTES # (AUTO) 0.8 10^3/uL (0.0-1.0); MONOCYTES % (AUTO) 7.3 %; NEUTROPHILS % (AUTO) 77.2 %; PLT - PLATELET COUNT 229 10^3/uL (130-450); RED BLOOD COUNT 5.11 10^6/uL (4.20-5.40); RED CELL DISTRIBUTION WIDTH 13.4 % (12.0-15.0); WHITE BLOOD COUNT 10.4 x10^3/uL (4.8-10.8)
[2019-06-23 19:04] LABS: ALBUMIN/GLOBULIN RATIO 1.2 (1.0-2.2); BILIRUBIN,TOTAL 0.8 mg/dL (0.2-1.0); CREATININE 0.9 mg/dL (0.4-1.0); TOTAL PROTEIN 7.4 g/dL (6.7-8.2)
[2019-06-23 19:16] LABS: INR 1.9 (0.8-1.2); PT - PROTHROMBIN TIME 21.1 secs (9.9-12.6)
[2019-06-23 20:02] LABS: BILIRUBIN,URINE NEGATIVE (NEGATIVE); GLUCOSE, URINE (UA) NEGATIVE (NEGATIVE); KETONES,URINE (UA) NEGATIVE (NEGATIVE); LEUKOCYTE ESTERASE, URINE SMALL (NEGATIVE); NITRITE,URINE POSITIVE (NEGATIVE); OCCULT BLOOD,URINE NEGATIVE (NEGATIVE); PH,URINE 5.5 PH (5.0-7.5); PROTEIN,URINE NEGATIVE (NEGATIVE); UROBILINOGEN,URINE 0.2 (NORMAL) E.U./dL (NORMAL)
[2019-06-23 20:03] LABS: CLARITY,URINE CLEAR (CLEAR)
[2019-06-23] MEDS ORDERED: cefTRIAXone 1 GM VIAL IVP STA (20:09)
[2019-06-23 20:20] LABS: BACTERIA,URINE Many /HPF (None Seen); RBC,URINE None Seen /HPF (0-5); SQUAMOUS EPITHELIAL CELL,UR FEW Squamous (<= Few); WBC CLUMPS,URINE PRESENT
[2019-06-23] MEDS: SODIUM CHLORIDE 0.9% 1,000 ML IV SCH (21:27)
[2019-06-23] MEDS: SODIUM CHLORIDE FLUSH 0.9% 10 ML SYRINGE IVP PRN (21:29)
--- NOTE | 2019-06-23 21:43 | HISTORY & PHYSICAL EXAMINATION ---
Chief Complaint - Chief Complaint Chief Complaint: Confusion History of Present Illness - Admitted From Admitted From:: Home - History Obtained From Records Reviewed: Yes History obtained from: Patient, Son - History of Present Illness HPI Comment/Other: This is a 79 year old female with a past medical history significant for COPD (on 2L), hypertension, CAD, atrial fibrillation (on coumadin) who presents from home after she was found to be confused. Her son checked on her this afternoon and found her lying on the floor. The patient denies syncope, LOC, or head trauma. She reports feeling weak and that is why she was on the ground. Her son asked her a few questions and realized she was confused. At baseline, she does not have any cognitive deficits. The patient reports feeling better since arrival to the hospital. She knows she is at the hospital but think's it is [place]. She knows it is 2019 but thought it was May at first. She denies chest pain, dyspnea, dysuria, urgency, weakness, numbness, dizziness, lightheadedness. In the ER, she underwent a CT of the head which showed no acute process but that the patient may have ventriculomegaly. Urinalysis revealed pyuria. She will be admitted for further management. I did speak with the patient regarding code status. She is undecided on what she would like at this time but is agreeable to being a full code for the time being. 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 Living arrangement: At home Living Situation: Alone Social History Notes: The patient lives alone and does all of her ADLs. 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 She has one son (João) who lives nearby She denies alcohol use or illicit drugs. She states that she has been a life long smoker since age 16 and smoked pack per day but quite about 10 months ago. - Substance History Use: Uses substance without health or social issues: NONE, Tobacco - POLST Patient has POLST: No POLST Status: Full Code Meds/Allgy - Home Medications Home Medications: Ambulatory Orders Medication Instructions Recorded Confirmed Pantoprazole [Protonix] 40 mg PO QDAC 02/15/15 07/17/18 Simvastatin 40 mg PO QPM 02/15/15 07/17/18 Warfarin [Coumadin] 5 mg PO CARRASCO@0900 02/15/15 07/17/18 Losartan [Cozaar] 25 mg PO DAILY 03/13/17 07/17/18 Aspirin 81 mg PO DAILY 07/17/18 07/17/18 Isosorbide Mononitrate [Isosorbide 60 mg PO DAILY 07/17/18 07/17/18 Mononitrate ER] Metoprolol Succinate 50 mg PO DAILY 07/17/18 07/17/18 Warfarin Sodium 2.5 mg PO MOTUWETHFRSA@0900 07/17/18 07/17/18 Nitroglycerin [Nitrostat] 0.4 mg SL Q5MIN PRN #30 tablet 07/18/18 Fluticasone/Salmeterol [Advair 1 each IH BID #5 disk.w.dev 07/19/18 250-50 Diskus] Levalbuterol Tartrate [Xopenex Hfa] 15 gm IH Q4HR PRN #5 hfa.aer.ad 07/19/18 - Allergies Allergies/Adverse Reactions: Allergies Allergy/AdvReac Type Severity Reaction Status Date / Time amoxicillin trihydrate * Allergy Nausea Verified 03/08/15 14:05 [From Augmentin] potassium clavulanate * Allergy Nausea Verified 03/08/15 14:05 [From Augmentin] morphine AdvReac Unknown Verified 03/08/15 14:05 Review of Systems - Constitutional Constitutional: denies: Fatigue, Fever, Chills, Weakness - Cardiovascular Cariovascular: denies: Chest pain, Edema, Lightheadedness, Syncope - Respiratory Respiratory: denies: Cough, SOB at rest, SOB with exertion - Gastrointestinal Gastrointestinal: denies: Abdominal pain, Constipation, Diarrhea, Nausea, Vomiting - Genitourinary Genitourinary: denies: Dysuria, Frequency, Urgency, Incontinence - Integumentary Integumentary: denies: Rash - Neurological Neurological: denies: General weakness, Focal weakness, Dizziness, Numbness - All Other Systems All Other Systems: reports: Reviewed and negative Prior Level of Functionality: Independent with ADL's. Will use a walker at times to ambulate. Exam - Vital Signs Reviewed Vital Signs: Yes Vital Signs: Vital Signs x48h Temp Pulse Pulse Resp BP BP Pulse Ox 06/23/19 20:51 36.6 C 102 H 17 155/94 H 98 06/23/19 19:37 103 H 19 166/95 H 97 06/23/19 18:45 101 H 19 159/100 H 99 06/23/19 18:05 36.8 C 102 H 16 181/106 H 99 - Physical Exam General Appearance: positive: No acute distress, Alert Eyes Bilateral: positive: Normal inspection, Conjunctivae nml ENT: positive: ENT inspection nml, Dry mucous membranes Neck: positive: Nml inspection Respiratory: positive: No respiratory distress, Other (Diminished breath sounds bilaterally). negative: Wheezes, Rales, Rhonchi Cardiovascular: positive: Regular rate & rhythm, Irregularly irregular. negative: Tachycardia, Bradycardia, Systolic murmur Abdomen: positive: Non-tender, No distention. negative: Tenderness, Guarding, Rebound, Abnml bowel sounds Skin: positive: Color nml, No rash. negative: Warm, Dry Extremities: positive: Non-tender, No pedal edema. negative: Pedal edema Neurologic/Psychiatric: positive: Motor nml, Sensation nml, Disoriented to place, Disoriented to time, Other (Oriented to self and surroundings. Knows she is at the hospital but not which one. Oriented to year but not month. Recognizes her son.). negative: Disoriented to person, Slurred/abnml speech Sepsis Event Note (H) - Evaluation Possible source of Sepsis: positive: Genitourinary - Sepsis Criteria Sepsis Criteria: Recorded Heart Rate greater than 90 bpm, INTERNATIONAL TRADE SPECIALIST: altered consciousness (unrelated to primary neuro pathology) Conclusion/Plan - Problem List (1) Altered mental status Conclusion/Plan: Likely secondary to UTI. Improving. Not back to baseline but becoming more oriented and participating in conversation. CT concerning for ventriculomegaly. Family and patient reporting some balance issues at home but incontinence or dementia/confusion at baseline. She may benefit from outpatient MRI to evaluate for NPH. - IV antibiotics - IV hydration - Monitor neuro status Qualifiers: Altered mental status type: unspecified Qualified Code(s): R41.82 - Altered mental status, unspecified (2) Sepsis secondary to UTI Conclusion/Plan: Urinalysis significant for pyuria, nitrites, leukocyte esterase. Presented with altered mental status and tachycardia. - Continue Ceftriaxone IV - IV hydration - Check blood cultures although she already received IV antibiotics in the ER - Follow up cultures (3) Atrial fibrillation Conclusion/Plan: She is in atrial fibrillation with heart rates in the 100's. On Metoprolol and coumadin. - Continue Coumadin - Hold Metoprolol for now as she is septic but will restart if her rates begin to rise - Monitor on telemetry (4) Hypertension Conclusion/Plan: She is on Losartan, Metoprolol at home. Currently hypertensive with systolics in the 150's. - Hold home medications as she is septic - Restart as sepsis resolves (5) CAD (coronary artery disease) Conclusion/Plan: She has CAD and is on aspirin, Simvastatin, metoprolol at home. Stable - Resume Aspirin and statin - Restart BB when appropriate Qualifiers: Associated angina: with unspecified angina (6) COPD (chronic obstructive pulmonary disease) Conclusion/Plan: Stable. She is on 2L O2 at baseline. On Advair and albuterol - Continue home inhalers - Supplemental O2 (7) History of CVA (cerebrovascular accident) Conclusion/Plan: She has history of CVA with no obvious residual deficits. On Aspirin, statin. Also on coumadin with history of atrial fibrillation. - Continue home medications - Lab Results Lab results reviewed: Yes Fish Bones: 06/23/19 18:39 06/23/19 18:39 - Diagnostic Imaging Results Diagnostic Imaging Results: positive: Final report reviewed Core Measures - Anticipated LOS I expect patient to be DC'd or transferred within 96 hours.: Yes - Issues Hospital Issues and Management Plan: Altered mental status secondary to UTI. IV hydration and antibiotics. - DVT/VTE - Prophylaxis VTE/DVT Device ordered at admit?: Yes VTE/DVT Prophylaxis med ordered at admit?: Yes
[2019-06-23] MEDS ORDERED: POTASSIUM CHLORIDE 20 MEQ/15 ML UDC PO SCH (22:00)
[2019-06-23] MEDS ORDERED: POTASSIUM CHLORIDE 20 MEQ TABLET PO ONE (22:01)
[2019-06-23] MEDS ORDERED: IPRATROPIUM/ALBUTEROL 3 ML NEB INH PRN (22:07)
[2019-06-24] MEDS: SODIUM CHLORIDE FLUSH 0.9% 10 ML SYRINGE IVP SCH ×3 (00:57→17:01)
[2019-06-24 05:05] LABS: BASOPHILS % (AUTO) 0.5 %; EOSINOPHILS # (AUTO) 0.1 10^3/uL (0.0-0.7); EOSINOPHILS % (AUTO) 1.7 %; HGB - HEMOGLOBIN 13.2 g/dL (12.0-16.0); LYMPHOCYTES # (AUTO) 1.9 10^3/uL (1.5-3.5); LYMPHOCYTES % (AUTO) 22.4 %; MEAN CORPUSCULAR HEMOGLOBIN 28.6 pg (27.0-31.0); MEAN CORPUSCULAR HGB CONC 31.8 g/dL (32.0-36.0); MEAN CORPUSCULAR VOLUME 89.8 fL (81.0-99.0); MEAN PLATELET VOLUME 10.3 fL (7.9-10.8); MONOCYTES # (AUTO) 0.9 10^3/uL (0.0-1.0); MONOCYTES % (AUTO) 10.8 %; NEUTROPHILS # (AUTO) 5.4 10^3/uL (1.5-6.6); NEUTROPHILS % (AUTO) 64.2 %; PLT - PLATELET COUNT 212 10^3/uL (130-450); RED BLOOD COUNT 4.62 10^6/uL (4.20-5.40); RED CELL DISTRIBUTION WIDTH 13.5 % (12.0-15.0); WHITE BLOOD COUNT 8.4 x10^3/uL (4.8-10.8)
[2019-06-24 05:26] LABS: CALCIUM 9.3 mg/dL (8.5-10.3); CREATININE 0.8 mg/dL (0.4-1.0); MAGNESIUM 1.9 mg/dL (1.7-2.8); PHOSPHORUS 3.1 mg/dL (2.5-4.6)
[2019-06-24] MEDS: PANTOPRAZOLE 40 MG TABLET PO SCH (06:26)
[2019-06-24] MEDS: SODIUM CHLORIDE 0.9% 1,000 ML IV SCH ×2 (06:30→17:19)
[2019-06-24] MEDS: ASPIRIN EC 81 MG TABLET PO SCH (08:34)
--- NOTE | 2019-06-24 12:14 | PROVIDER PROGRESS NOTE ---
Subjective - Prog Note Date Prog Note Date: 06/24/19 - Subjective Pt reports feeling: Improved Subjective: pt is alert and oriented person, location but not time. pt report she feel better but report she has some weakness for walk. she denies headache, chest pain, fever, chill. Current Medications - Current Medications Current Medications: Active Medications Acetaminophen (Tylenol) 650 mg PO Q6HR PRN PRN Reason: Pain or Fever > 38C (100.4F) Last Admin: 06/26/19 05:13 Dose: 650 mg Albuterol/Ipratropium (Duoneb) 3 ml INH Q4HR PRN PRN Reason: Wheezing Last Admin: 06/25/19 18:00 Dose: 3 ml Aspirin (Ecotrin) 81 mg PO DAILY [facility] Last Admin: 06/26/19 08:25 Dose: 81 mg Atorvastatin Calcium (Lipitor) 20 mg PO QPM [facility] Last Admin: 06/25/19 20:35 Dose: 20 mg Budesonide (Pulmicort) 0.5 mg INH RTBID [facility] Last Admin: 06/26/19 07:48 Dose: 0.5 mg Calcium Carbonate/Glycine (Tums) 500 mg PO TID [facility] Last Admin: 06/26/19 06:25 Dose: 500 mg Ferrous Gluconate (Fergon) 324 mg PO DAILYWM [facility] Last Admin: 06/26/19 08:26 Dose: 324 mg Furosemide (Lasix) 20 mg PO DAILY [facility] Last Admin: 06/26/19 08:26 Dose: 20 mg Ceftriaxone Sodium 1 gm/ (Sodium Chloride) 100 mls @ 200 mls/hr IV Q24H [facility] Last Infusion: 06/25/19 23:25 Dose: Infused Levalbuterol HCl (Xopenex) 1.25 mg INH Q4H PRN PRN Reason: Shortness of Air/Wheezing Last Admin: 06/26/19 07:48 Dose: 1.25 mg Magnesium Oxide (Mag Ox) 400 mg PO 0800 [facility] Last Admin: 06/26/19 08:28 Dose: 400 mg Metoprolol Succinate (Toprol Xl) 37.5 mg PO DAILY [facility] Last Admin: 06/26/19 08:37 Dose: 37.5 mg Nitroglycerin (Nitrostat) 0.4 mg SL Q5MIN PRN PRN Reason: Angina Pantoprazole Sodium (Protonix) 40 mg PO QDAC [facility] Last Admin: 06/26/19 06:24 Dose: 40 mg Saccharomyces Boulardii (Florastor) 250 mg PO BIDWM [facility] Last Admin: 06/26/19 08:25 Dose: 250 mg Sodium Chloride (Normal Saline Flush 0.9%) 10 ml IVP PRN PRN PRN Reason: NEEDED PER PROVIDER ORDERS Last Admin: 06/25/19 21:29 Dose: 10 ml Sodium Chloride (Normal Saline Flush 0.9%) 10 ml IVP 0100,0900,1700 [facility] Last Admin: 06/26/19 08:42 Dose: 10 ml Warfarin Sodium (Coumadin) 2.5 mg PO MOWEFR@09 [facility] Last Admin: 06/26/19 08:29 Dose: 2.5 mg Warfarin Sodium (Coumadin) 3 mg PO SuTuThSa@09 [facility] Last Admin: 06/25/19 08:05 Dose: 3 mg Pantoprazole [Protonix] 40 mg PO QDAC 02/15/15 Simvastatin 40 mg PO QPM 02/15/15 Aspirin 81 mg PO DAILY 07/17/18 Warfarin Sodium 2.5 mg PO MOWEFR@89907/17/18 Acetaminophen [Tylenol Extra Strength] 1,000 mg PO TID PRN 06/24/19 Albuterol Sulf [Ventolin Hfa Inhaler] 2 puffs INH QID 06/24/19 Ascorbic Acid [Vitamin C] 500 mg PO DAILY 06/24/19 Calcium Carbonate [Tums (Calcium Carbonate 500mg)] 500 mg PO TID 06/24/19 Ferrous Gluconate [Iron] 240 mg PO DAILYWM 06/24/19 Furosemide 10 mg PO DAILY 06/24/19 Magnesium Oxide [Mag Ox] [place] [address]/24/19 Metoprolol Succinate [Toprol Xl] 25 mg PO DAILY 06/24/19 Polyethylene Glycol 3350 [Miralax] 17 gm PO DAILY PRN 06/24/19 Warfarin Sodium 3 mg PO SUTUTHSA@89906/24/19 Objective - Vital Signs/Intake & Output Reviewed Vital Signs: Yes Vital Signs: Vital Signs x48h Temp Pulse Resp BP Pulse Ox 06/24/19 07:48 36.3 C L 87 14 150/78 H 97 Intake & Output: Intake & Output 08/04/06/22/19 06/23/19 06/24/19 23:59 23:59 23:59 23:59 Intake Total 180 1225 Output Total 150 Balance 30 1225 - Objective General Appearance: positive: No acute distress, Alert. negative: Lethargic Eyes Bilateral: positive: Normal inspection, PERRL, No lid inflammation, Conjunctivae nml ENT: positive: ENT inspection nml, Pharynx nml, No signs of dehydration. negative: Purulent nasal drainage, Pharyngeal erythema, Oral lesions Neck: positive: Nml inspection, Thyroid nml, No JVD, Trachea midline. negative: Thyromegaly, Lymphadenopathy (R), Lymphadenopathy (L), Stiff neck, Swelling/bruising, Tracheal deviation Respiratory: positive: Chest non-tender, No respiratory distress. negative: Wheezes, Rales, Rhonchi Cardiovascular: positive: Regular rate & rhythm, No murmur, No gallop. negative: Irregularly irregular, Extrasystoles, Tachycardia, Bradycardia, JVD present, Systolic murmur, Diastolic murmur Peripheral Pulses: 2+ Radial (R), 2+ Radial (L), 2+ Dorsalis pedis (R), 2+ Dorsalis pedis (L) Abdomen: positive: Non-tender, No organomegaly, Nml bowel sounds, No distention. negative: Tenderness, Guarding, Rebound Back: positive: Nml inspection. negative: CVA tenderness (R), CVA tenderness (L) Skin: positive: Color nml, No rash, Warm, Dry. negative: Cyanosis, Diaphoresis, Pallor Extremities: positive: Non-tender, Full ROM, Nml appearance. negative: Calf tenderness, Joint swelling, Aniyah's sign/cords Neurologic/Psychiatric: positive: Sensation nml, Mood/affect nml. negative: Weakness, Sensory loss, Facial droop, Slurred/abnml speech, Depressed mood/aff ect - Lab Results Fish Bones: 06/26/19 04:25 06/26/19 04:25 Other Labs: Lab Results x24hrs 06/24/19 06/24/19 06/23/19 Range/Units 04:45 04:45 19:52 WBC 8.4 (4.8-10.8) x10^3/uL RBC 4.62 (4.20-5.40) 10^6/uL Hgb 13.2 (12.0-16.0) g/dL Hct 41.5 (37.0-47.0) % MCV 89.8 (81.0-99.0) fL MCH 28.6 (27.0-31.0) pg MCHC 31.8 L (32.0-36.0) g/dL RDW 13.5 (12.0-15.0) % Plt Count 212 (130-450) 10^3/uL MPV 10.3 (7.9-10.8) fL Neut # (Auto) 5.4 (1.5-6.6) 10^3/uL Lymph # (Auto) 1.9 (1.5-3.5) 10^3/uL [place] # (Auto) 0.9 (0.0-1.0) 10^3/uL Eos # (Auto) 0.1 (0.0-0.7) 10^3/uL Baso # (Auto) 0.0 (0.0-0.1) 10^3/uL Absolute Nucleated RBC 0.00 x10^3/uL Nucleated RBC % 0.0 /100WBC PT (9.9-12.6) secs INR (0.8-1.2) Sodium 143 (135-145) mmol/L Potassium 3.7 (3.5-5.0) mmol/L Chloride 105 (101-111) mmol/L Carbon Dioxide 29 (21-32) mmol/L Anion Gap 9.0 (6-13) BUN 18 (6-20) mg/dL Creatinine 0.8 (0.4-1.0) mg/dL Estimated GFR (MDRD) 69 L (>89) Glucose 103 H (70-100) mg/dL Calcium 9.3 (8.5-10.3) mg/dL Phosphorus 3.1 (2.5-4.6) mg/dL Magnesium 1.9 (1.7-2.8) mg/dL Total Bilirubin (0.2-1.0) mg/dL AST (10-42) IU/L ALT (10-60) IU/L Alkaline Phosphatase (42-121) IU/L Total Protein (6.7-8.2) g/dL Albumin (3.2-5.5) g/dL Globulin (2.1-4.2) g/dL Albumin/Globulin Ratio (1.0-2.2) Lipase (22-51) U/L Urine Color YELLOW Urine Clarity CLEAR (CLEAR) Urine pH 5.5 (5.0-7.5) PH Ur Specific [place] 1.020 (1.002-1.030) Urine Protein NEGATIVE (NEGATIVE) mg/dL Urine Glucose (UA) NEGATIVE (NEGATIVE) mg/dL Urine Ketones NEGATIVE (NEGATIVE) mg/dL Urine Occult Blood NEGATIVE (NEGATIVE) Urine Nitrite POSITIVE H (NEGATIVE) Urine Bilirubin NEGATIVE (NEGATIVE) Urine Urobilinogen 0.2 (NORMAL) (NORMAL) E.U./dL Ur Leukocyte Esterase SMALL H (NEGATIVE) Urine RBC None Seen (0-5) /HPF Urine WBC >25 H (0-5) /HPF Urine WBC Clumps PRESENT Ur Squamous Epith Cells FEW Squamous (<= Few) Urine Bacteria Many H (None Seen) /HPF Ur Microscopic Review INDICATED Urine Culture Comments INDICATED 06/23/19 06/23/19 06/23/19 Range/Units 18:39 18:39 18:39 WBC 10.4 (4.8-10.8) x10^3/uL RBC 5.11 (4.20-5.40) 10^6/uL Hgb 14.9 (12.0-16.0) g/dL Hct 46.1 (37.0-47.0) % MCV 90.2 (81.0-99.0) fL MCH 29.2 (27.0-31.0) pg MCHC 32.3 (32.0-36.0) g/dL RDW 13.4 (12.0-15.0) % Plt Count 229 (130-450) 10^3/uL MPV 10.1 (7.9-10.8) fL Neut # (Auto) 8.0 H (1.5-6.6) 10^3/uL Lymph # (Auto) 1.4 L (1.5-3.5) 10^3/uL [place] # (Auto) 0.8 (0.0-1.0) 10^3/uL Eos # (Auto) 0.1 (0.0-0.7) 10^3/uL Baso # (Auto) 0.0 (0.0-0.1) 10^3/uL Absolute Nucleated RBC 0.00 x10^3/uL Nucleated RBC % 0.0 /100WBC PT 21.1 H (9.9-12.6) secs INR 1.9 H (0.8-1.2) Sodium 144 (135-145) mmol/L Potassium 3.3 L (3.5-5.0) mmol/L Chloride 101 (101-111) mmol/L Carbon Dioxide 30 (21-32) mmol/L Anion Gap 13.0 (6-13) BUN 19 (6-20) mg/dL Creatinine 0.9 (0.4-1.0) mg/dL Estimated GFR (MDRD) 61 L (>89) Glucose 191 H (70-100) mg/dL Calcium 10.0 (8.5-10.3) mg/dL Phosphorus (2.5-4.6) mg/dL Magnesium (1.7-2.8) mg/dL Total Bilirubin 0.8 (0.2-1.0) mg/dL AST 18 (10-42) IU/L ALT 11 (10-60) IU/L Alkaline Phosphatase 60 (42-121) IU/L Total Protein 7.4 (6.7-8.2) g/dL Albumin 4.0 (3.2-5.5) g/dL Globulin 3.4 (2.1-4.2) g/dL Albumin/Globulin Ratio 1.2 (1.0-2.2) Lipase 20 L (22-51) U/L Urine Color Urine Clarity (CLEAR) Urine pH (5.0-7.5) PH Ur Specific [place] (1.002-1.030) Urine Protein (NEGATIVE) mg/dL Urine Glucose (UA) (NEGATIVE) mg/dL Urine Ketones (NEGATIVE) mg/dL Urine Occult Blood (NEGATIVE) Urine Nitrite (NEGATIVE) Urine Bilirubin (NEGATIVE) Urine Urobilinogen (NORMAL) E.U./dL Ur Leukocyte Esterase (NEGATIVE) Urine RBC (0-5) /HPF Urine WBC (0-5) /HPF Urine WBC Clumps Ur Squamous Epith Cells (<= Few) Urine Bacteria (None Seen) /HPF Ur Microscopic Review Urine Culture Comments ABX Reporting Has patient been on IV antibiotics over the past 48 hours?: Yes Sepsis Event Note (H) - Evaluation Possible source of Sepsis: positive: Genitourinary - Sepsis Criteria Sepsis Criteria: Recorded Heart Rate greater than 90 bpm, 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: altered conscious ness (unrelated to primary neuro pathology) Assessment/Plan - Problem List (1) Altered mental status Impression: pt's AMS is significantly improved after treatment with antibiotics continue underline UTI with antibiotics continue nurse orientation and support continue neuro check, and hydration gently (2) Sepsis secondary to UTI Conclusion/Plan: Presented with altered mental status and tachycardia in admission, now AMS and tachycardia both are improved continue antibiotics, followup UA culture and sensitivity study, hydration (3) Atrial fibrillation Conclusion/Plan: pt's HR is slightly over 100, with mild Afib RVR, reconcile home Metoprolol and increase to 37.5 mg daily - Continue Coumadin, Monitor on telemetry (4) Hypertension Conclusion/Plan: stable, continue Metoprolol and Lasix at home. (5) CAD (coronary artery disease) Conclusion/Plan: She has CAD with aspirin, Simvastatin, metoprolol at home. Stable reconcile Aspirin and statin, and metoprolol (6) COPD (chronic obstructive pulmonary disease) Conclusion/Plan: Stable. She is on 2L O2 at baseline.reconcile Advair and albuterol, continue Supplemental O2 (7) History of CVA (cerebrovascular accident) Conclusion/Plan: stable. She has history of CVA with no obvious residual deficits. reconcile home meds Aspirin, statin. Also on coumadin with history of atrial fibrillation. (8) weakness pt report weakness, will consult with PT/OT, followup the recommendation from PT/OT Qualifiers: Altered mental status type: unspecified Qualified Code(s): R41.82 - Altered mental status, unspecified
[2019-06-24] MEDS ORDERED: WARFARIN 1 MG TABLET PO SCH (14:00)
[2019-06-24] MEDS ORDERED: NITROGLYCERIN SL 0.4 MG TABLET SL PRN (14:20)
[2019-06-24] MEDS: METOPROLOL SUCCINATE 25 MG TABLET PO SCH (15:00)
[2019-06-24] MEDS: CALCIUM CARBONATE CHEW 500 MG TABLET PO SCH ×2 (20:36→21:20)
[2019-06-24] MEDS: ATORVASTATIN 10 MG TABLET PO SCH (20:40)
[2019-06-24] MEDS: cefTRIAXone 1 GM in SODIUM CHLORIDE 0.9% MINIBAG 100 ML IV SCH (20:41)
[2019-06-24] MEDS ORDERED: ATORVASTATIN 40 MG TABLET PO SCH (21:00)
[2019-06-25] MEDS: SODIUM CHLORIDE FLUSH 0.9% 10 ML SYRINGE IVP SCH ×3 (01:36→16:22)
[2019-06-25] MEDS: SODIUM CHLORIDE 0.9% 1,000 ML IV SCH (04:42)
[2019-06-25 04:50] LABS: BASOPHILS # (AUTO) 0.1 10^3/uL (0.0-0.1); BASOPHILS % (AUTO) 0.7 %; EOSINOPHILS # (AUTO) 0.5 10^3/uL (0.0-0.7); EOSINOPHILS % (AUTO) 6.3 %; HGB - HEMOGLOBIN 13.4 g/dL (12.0-16.0); LYMPHOCYTES # (AUTO) 1.3 10^3/uL (1.5-3.5); LYMPHOCYTES % (AUTO) 15.7 %; MEAN CORPUSCULAR HEMOGLOBIN 28.9 pg (27.0-31.0); MEAN CORPUSCULAR HGB CONC 31.7 g/dL (32.0-36.0); MEAN CORPUSCULAR VOLUME 91.2 fL (81.0-99.0); MEAN PLATELET VOLUME 10.5 fL (7.9-10.8); MONOCYTES # (AUTO) 0.8 10^3/uL (0.0-1.0); MONOCYTES % (AUTO) 8.9 %; NEUTROPHILS # (AUTO) 5.8 10^3/uL (1.5-6.6); PLT - PLATELET COUNT 197 10^3/uL (130-450); RED BLOOD COUNT 4.64 10^6/uL (4.20-5.40); RED CELL DISTRIBUTION WIDTH 13.5 % (12.0-15.0); WHITE BLOOD COUNT 8.5 x10^3/uL (4.8-10.8)
[2019-06-25 05:01] LABS: CALCIUM 9.2 mg/dL (8.5-10.3); CREATININE 0.8 mg/dL (0.4-1.0)
[2019-06-25] MEDS: CALCIUM CARBONATE CHEW 500 MG TABLET PO SCH ×3 (06:37→21:27)
[2019-06-25] MEDS: PANTOPRAZOLE 40 MG TABLET PO SCH (06:37)
[2019-06-25] MEDS: METOPROLOL SUCCINATE 25 MG TABLET PO SCH (08:05)
[2019-06-25] MEDS: ASPIRIN EC 81 MG TABLET PO SCH (08:05)
[2019-06-25] MEDS: FERROUS GLUCONATE 324 MG TABLET PO SCH (08:05)
[2019-06-25] MEDS ORDERED: LEVALBUTEROL 1.25 MG/3 ML NEB INH PRN (08:25)
[2019-06-25] MEDS ORDERED: ASPIRIN CHEW 81 MG TABLET PO SCH (09:00)
[2019-06-25] MEDS ORDERED: NON FORMULARY MED (Albuterol Sulf [Ventolin Hfa Inhaler] 2 PUFFS) INH SCH (09:00)
[2019-06-25] MEDS ORDERED: METOPROLOL SUCCINATE 25 MG TABLET PO ONE (09:00)
[2019-06-25] MEDS ORDERED: WARFARIN 1 MG TABLET PO SCH (09:00)
[2019-06-25] MEDS ORDERED: METOPROLOL SUCCINATE 25 MG TABLET PO SCH (09:00)
[2019-06-25] MEDS: MAGNESIUM OXIDE 400 MG TABLET PO SCH (09:02)
[2019-06-25] MEDS: FUROSEMIDE 20 MG TABLET PO SCH (09:02)
--- NOTE | 2019-06-25 09:20 | XRAY Report ---
Reason: hypoxia, cough Procedure Date: 06/25/2019 Accession Number: [id number] / [id number] Procedure: XR - Chest 1 View X-Ray CPT Code: 58752 FULL RESULT: EXAM: CHEST RADIOGRAPHY EXAM DATE: 06/25/2019 08:40 AM. CLINICAL HISTORY: Hypoxia, cough. COMPARISON: CHEST 2 VIEW 07/17/2018 3:41 PM. TECHNIQUE: 1 view. FINDINGS: Lungs/Pleura: Small right and trace left pleural effusions. Mild bibasilar atelectasis. Mediastinum: Atherosclerotic aortic calcifications. Other: None. IMPRESSION: Small right and trace left pleural effusions. Mild bibasilar atelectasis. RADIA
[2019-06-25] MEDS: SACCHAROMYCES BOULARDII 250 MG CAPSULE PO SCH (16:28)
[2019-06-25] MEDS: BUDESONIDE 0.5 MG/2 ML NEB INH SCH (18:00)
--- NOTE | 2019-06-25 18:47 | PROVIDER PROGRESS NOTE ---
Subjective - Prog Note Date Prog Note Date: 06/25/19 - Subjective Pt reports feeling: Improved Subjective: pt is alert and oriented to person, location and person today. pt has some balance issue per PT report, and PT will continue to work with you today. Pt declined to be d/c to SNF and declined to have home health PT at the time. I discussed with pt about her CT of brain finding, there may be a component of central greater than peripheral brain atropy but normal pressure of hydrocephalus should be also considered. Advise pt discuss with her PCP and neurologist to be followup as needed. Current Medications - Current Medications Current Medications: Active Medications Acetaminophen (Tylenol) 650 mg PO Q6HR PRN PRN Reason: Pain or Fever > 38C (100.4F) Last Admin: 06/26/19 05:13 Dose: 650 mg Albuterol/Ipratropium (Duoneb) 3 ml INH Q4HR PRN PRN Reason: Wheezing Last Admin: 06/25/19 18:00 Dose: 3 ml Aspirin (Ecotrin) 81 mg PO DAILY [facility] Last Admin: 06/26/19 08:25 Dose: 81 mg Atorvastatin Calcium (Lipitor) 20 mg PO QPM [facility] Last Admin: 06/25/19 20:35 Dose: 20 mg Budesonide (Pulmicort) 0.5 mg INH RTBID [facility] Last Admin: 06/26/19 07:48 Dose: 0.5 mg Calcium Carbonate/Glycine (Tums) 500 mg PO TID [facility] Last Admin: 06/26/19 06:25 Dose: 500 mg Ferrous Gluconate (Fergon) 324 mg PO DAILYWM [facility] Last Admin: 06/26/19 08:26 Dose: 324 mg Furosemide (Lasix) 20 mg PO DAILY [facility] Last Admin: 06/26/19 08:26 Dose: 20 mg Ceftriaxone Sodium 1 gm/ (Sodium Chloride) 100 mls @ 200 mls/hr IV Q24H [facility] Last Infusion: 06/25/19 23:25 Dose: Infused Levalbuterol HCl (Xopenex) 1.25 mg INH Q4H PRN PRN Reason: Shortness of Air/Wheezing Last Admin: 06/26/19 07:48 Dose: 1.25 mg Magnesium Oxide (Mag Ox) 400 mg PO 0800 [facility] Last Admin: 06/26/19 08:28 Dose: 400 mg Metoprolol Succinate (Toprol Xl) 37.5 mg PO DAILY [facility] Last Admin: 06/26/19 08:37 Dose: 37.5 mg Nitroglycerin (Nitrostat) 0.4 mg SL Q5MIN PRN PRN Reason: Angina Pantoprazole Sodium (Protonix) 40 mg PO QDAC [facility] Last Admin: 06/26/19 06:24 Dose: 40 mg Saccharomyces Boulardii (Florastor) 250 mg PO BIDWM [facility] Last Admin: 06/26/19 08:25 Dose: 250 mg Sodium Chloride (Normal Saline Flush 0.9%) 10 ml IVP PRN PRN PRN Reason: NEEDED PER PROVIDER ORDERS Last Admin: 06/25/19 21:29 Dose: 10 ml Sodium Chloride (Normal Saline Flush 0.9%) 10 ml IVP 0100,0900,1700 [facility] Last Admin: 06/26/19 08:42 Dose: 10 ml Warfarin Sodium (Coumadin) 2.5 mg PO MOWEFR@0900 [facility] Last Admin: 06/26/19 08:29 Dose: 2.5 mg Warfarin Sodium (Coumadin) 3 mg PO SuTuThSa@0900 [facility] Last Admin: 06/25/19 08:05 Dose: 3 mg Pantoprazole [Protonix] 40 mg PO QDAC 02/15/15 Simvastatin 40 mg PO QPM 02/15/15 Aspirin 81 mg PO DAILY 07/17/18 Warfarin Sodium 2.5 mg PO MOWEFR@0900 07/17/18 Acetaminophen [Tylenol Extra Strength] 1,000 mg PO TID PRN 06/24/19 Albuterol Sulf [Ventolin Hfa Inhaler] 2 puffs INH QID 06/24/19 Ascorbic Acid [Vitamin C] 500 mg PO DAILY 06/24/19 Calcium Carbonate [Tums (Calcium Carbonate 500mg)] 500 mg PO TID 06/24/19 Ferrous Gluconate [Iron] 240 mg PO DAILYWM 06/24/19 Furosemide 10 mg PO DAILY 06/24/19 Magnesium Oxide [Mag Ox] 400 mg PO 0800 06/24/19 Metoprolol Succinate [Toprol Xl] 25 mg PO DAILY 06/24/19 Polyethylene Glycol 3350 [Miralax] 17 gm PO DAILY PRN 06/24/19 Warfarin Sodium 3 mg PO SUTUTHSA@0900 06/24/19 Objective - Vital Signs/Intake & Output Reviewed Vital Signs: Yes Vital Signs: Vital Signs x48h Temp Pulse Pulse Resp BP Pulse Ox 06/25/19 18:07 37 C 91 20 95 06/25/19 18:03 96 20 06/25/19 15:30 37.0 C 93 15 128/64 94 06/25/19 13:00 105 H 18 150/66 H 91 L Intake & Output: Intake & Output 06/22/19 06/23/19 06/24/19 06/25/19 23:59 23:59 23:59 23:59 Intake Total 180 3215 2258.333 Output Total 150 Balance 30 3215 2258.333 - Objective General Appearance: positive: No acute distress, Alert. negative: Lethargic Eyes Bilateral: positive: Normal inspection, PERRL, No lid inflammation, Conju nctivae nml ENT: positive: ENT inspection nml, Pharynx nml, No signs of dehydration. negative: Purulent nasal drainage, Pharyngeal erythema, Oral lesions Neck: positive: Nml inspection, Thyroid nml, No JVD, Trachea midline. negative: Thyromegaly, Lymphadenopathy (R), Lymphadenopathy (L), Stiff neck, Swelling/bruising, Tracheal deviation Respiratory: positive: Chest non-tender, No respiratory distress. negative: Wheezes, Rales, Rhonchi Cardiovascular: positive: Regular rate & rhythm, No murmur, No gallop. negative: Irregularly irregular, Extrasystoles, Tachycardia, Bradycardia, JVD present, Systolic murmur, Diastolic murmur Peripheral Pulses: 2+ Radial (R), 2+ Radial (L), 2+ Dorsalis pedis (R), 2+ Dorsalis pedis (L) Abdomen: positive: Non-tender, No organomegaly, Nml bowel sounds, No distention. negative: Tenderness, Guarding, Rebound Back: positive: Nml inspection. negative: CVA tenderness (R), CVA tenderness (L) Skin: positive: Color nml, No rash, Warm, Dry. negative: Cyanosis, Diaphoresis, Pallor Extremities: positive: Non-tender, Nml appearance. negative: Calf tenderness, Joint swelling, Aniyah's sign/cords Neurologic/Psychiatric: positive: Oriented x3, Sensation nml, Mood/affect nml. negative: Weakness, Sensory loss, Facial droop, Slurred/abnml speech, Depressed mood/affect - Lab Results Fish Bones: 06/26/19 04:25 06/26/19 04:25 Other Labs: Lab Results x24hrs 06/25/19 06/25/19 Range/Units 04:25 04:25 WBC 8.5 (4.8-10.8) x10^3/uL RBC 4.64 (4.20-5.40) 10^6/uL Hgb 13.4 (12.0-16.0) g/dL Hct 42.3 (37.0-47.0) % MCV 91.2 (81.0-99.0) fL MCH 28.9 (27.0-31.0) pg MCHC 31.7 L (32.0-36.0) g/dL RDW 13.5 (12.0-15.0) % Plt Count 197 (130-450) 10^3/uL MPV 10.5 (7.9-10.8) fL Neut # (Auto) 5.8 (1.5-6.6) 10^3/uL Lymph # (Auto) 1.3 L (1.5-3.5) 10^3/uL [place] # (Auto) 0.8 (0.0-1.0) 10^3/uL Eos # (Auto) 0.5 (0.0-0.7) 10^3/uL Baso # (Auto) 0.1 (0.0-0.1) 10^3/uL Absolute Nucleated RBC 0.00 x10^3/uL Nucleated RBC % 0.0 /100WBC Sodium 147 H (135-145) mmol/L Potassium 3.8 (3.5-5.0) mmol/L Chloride 108 (101-111) mmol/L Carbon Dioxide 28 (21-32) mmol/L Anion Gap 11.0 (6-13) BUN 13 (6-20) mg/dL Creatinine 0.8 (0.4-1.0) mg/dL Estimated GFR (MDRD) 69 L (>89) Glucose 114 H (70-100) mg/dL Calcium 9.2 (8.5-10.3) mg/dL ABX Reporting Has patient been on IV antibiotics over the past 48 hours?: Yes Sepsis Event Note (H) - Evaluation Possible source of Sepsis: positive: Genitourinary - Sepsis Criteria Sepsis Criteria: Recorded Heart Rate greater than 90 bpm, 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 followup UA culture and sensitivity study Presented with altered mental status and tachycardia in admission, now AMS and tachycardia both are improved continue antibiotics, followup UA culture and sensitivity study, hydration (3) Atrial fibrillation with RVR Conclusion/Plan: 06/25 pt has HR increase to 106 but pt denies chest pain, palpitation, asymptomatic for afib with RVR. increase Metoprolol to 37.5 from 25 mg daily continue tele and vital monitor pt's HR is slightly over 100, with mild Afib RVR, reconcile home Metoprolol and increase to 37.5 mg daily - Continue Coumadin, Monitor on telemetry (4) Hypertension Conclusion/Plan: stable, continue Metoprolol and Lasix at home. (5) CAD (coronary artery disease) Conclusion/Plan: She has CAD with aspirin, Simvastatin, metoprolol at home. Stable reconcile Aspirin and statin, and metoprolol (6) COPD (chronic obstructive pulmonary disease) Conclusion/Plan: Stable. She is on 2L O2 at baseline.reconcile Advair and albuterol, continue Supplemental O2 (7) History of CVA (cerebrovascular accident) Conclusion/Plan: stable. She has history of CVA with no obvious residual deficits. reconcile home meds Aspirin, statin. Also on coumadin with history of atrial fibrillation. (8) weakness pt report weakness, will consult with PT/OT, followup the recommendation from PT /OT Qualifiers: Altered mental status type: unspecified Qualified Code(s): R41.82 - Altered mental status, unspecified
[2019-06-25] MEDS: ATORVASTATIN 10 MG TABLET PO SCH (20:35)
[2019-06-25] MEDS: cefTRIAXone 1 GM in SODIUM CHLORIDE 0.9% MINIBAG 100 ML IV SCH (21:26)
[2019-06-25] MEDS: SODIUM CHLORIDE FLUSH 0.9% 10 ML SYRINGE IVP PRN (21:29)
[2019-06-26] MEDS: SODIUM CHLORIDE FLUSH 0.9% 10 ML SYRINGE IVP SCH ×2 (00:35→08:42)
[2019-06-26 05:03] LABS: BASOPHILS # (AUTO) 0.1 10^3/uL (0.0-0.1); BASOPHILS % (AUTO) 0.7 %; EOSINOPHILS # (AUTO) 0.5 10^3/uL (0.0-0.7); EOSINOPHILS % (AUTO) 5.7 %; LYMPHOCYTES # (AUTO) 1.4 10^3/uL (1.5-3.5); LYMPHOCYTES % (AUTO) 16.8 %; MEAN CORPUSCULAR HEMOGLOBIN 28.7 pg (27.0-31.0); MEAN CORPUSCULAR HGB CONC 31.9 g/dL (32.0-36.0); MEAN CORPUSCULAR VOLUME 90.1 fL (81.0-99.0); MEAN PLATELET VOLUME 10.7 fL (7.9-10.8); MONOCYTES # (AUTO) 0.9 10^3/uL (0.0-1.0); MONOCYTES % (AUTO) 10.9 %; NEUTROPHILS # (AUTO) 5.5 10^3/uL (1.5-6.6); NEUTROPHILS % (AUTO) 65.4 %; PLT - PLATELET COUNT 205 10^3/uL (130-450); RED BLOOD COUNT 4.53 10^6/uL (4.20-5.40); RED CELL DISTRIBUTION WIDTH 13.5 % (12.0-15.0); WHITE BLOOD COUNT 8.4 x10^3/uL (4.8-10.8)
[2019-06-26] MEDS ORDERED: ACETAMINOPHEN 325 MG TABLET PO PRN (05:03)
[2019-06-26 05:05] LABS: INR 2.5 (0.8-1.2); PT - PROTHROMBIN TIME 28.4 secs (9.9-12.6)
[2019-06-26 05:11] LABS: CALCIUM 8.9 mg/dL (8.5-10.3); CREATININE 0.7 mg/dL (0.4-1.0)
[2019-06-26] MEDS: PANTOPRAZOLE 40 MG TABLET PO SCH (06:24)
[2019-06-26] MEDS: CALCIUM CARBONATE CHEW 500 MG TABLET PO SCH (06:25)
[2019-06-26] MEDS: BUDESONIDE 0.5 MG/2 ML NEB INH SCH (07:48)
[2019-06-26] MEDS ORDERED: POTASSIUM CHLORIDE 20 MEQ TABLET PO ONE (07:50)
[2019-06-26] MEDS: SACCHAROMYCES BOULARDII 250 MG CAPSULE PO SCH (08:25)
[2019-06-26] MEDS: ASPIRIN EC 81 MG TABLET PO SCH (08:25)
[2019-06-26] MEDS: FERROUS GLUCONATE 324 MG TABLET PO SCH (08:26)
[2019-06-26] MEDS: FUROSEMIDE 20 MG TABLET PO SCH (08:26)
[2019-06-26] MEDS: MAGNESIUM OXIDE 400 MG TABLET PO SCH (08:28)
[2019-06-26] MEDS ORDERED: METOPROLOL SUCCINATE 25 MG TABLET PO SCH (09:00)
[2019-06-26] MEDS ORDERED: WARFARIN 2.5 MG TABLET PO SCH (09:00)
--- NOTE | 2019-06-26 11:55 | Discharge Plan ---
Discharge Plan Problem Reviewed?: Yes Disposition: Home Health Service Condition: Poor Prescriptions: Ipratropium/Albuterol [Combivent Respimat] 4 gm IH Q6H PRN #1 aer.w.adap PRN Reason: Shortness Of Air/Wheezing Metoprolol Succinate [Toprol Xl] 37.5 mg PO DAILY #20 tablet Nitrofurantoin Monohyd/M-Cryst [Macrobid 100 mg Capsule] 100 mg PO BID #14 capsule Diet: Regular Activity Restrictions: Activity as Tolerated Shower Restrictions: No (fall precaution) Instruction Topics: Nitrofurantoin tablets or capsules, Metoprolol tablets, Albuterol Ipratropium solution for inhalation, UTI Health Concerns: UTI, COPD, weakness/unsteady Plan of Treatment: you was found to have UTI, Macrobid is prescribed to finish the treatment course. Duoneb IH is prescribed for your COPD management, you may continue your home O2 as needed for your weakness/unsteady, As we discussed your CT result of brain, there may be a component of central greater than peripheral brain atropy but normal pressure of hydrocephalus should be also considered. you may followup neurologist/neurosurgeon as out-pt as needed. You declined to be d/c to SNF. Home [facility]ore PT is arranged for you. Care Goals: stabilization of your medical condition Assessment: assessment as the above Additional Instructions or Follow Up instructions: you may followup your PCP in one week. Should your symptoms return or worsen, you may present ER, call 911 for help Follow-Up Care: Home Health - PT No Smoking: If you smoke, Please STOP! Call for help. Follow-up with: Bisi Rowe MD [Primary Care Provider] -
--- NOTE | 2019-06-26 12:10 | DISCHARGE SUMMARY ---
Discharge Summary Discharge Date: 06/26/19 Discharging Provider: [place] Primary Care Provider: Bisi Gonzalez Condition at Discharge: Poor Discharge Disposition: Home Health Service Discharge Facility Name: home - DIAGNOSES Admission Diagnoses: (1) Altered mental status (2) Sepsis secondary to UTI (3) Atrial fibrillation (4) Hypertension (5) CAD (coronary artery disease) (6) COPD (chronic obstructive pulmonary disease) (7) History of CVA (cerebrovascular accident) Discharge Diagnoses with Status of Each Condition: (1) Altered mental status resolved (2) Sepsis secondary to UTI resolved (3) Atrial fibrillation with RVR stable (4) Hypertension stable (5) CAD (coronary artery disease) stable (6) COPD (chronic obstructive pulmonary disease) stable as pt's baseline (7) History of CVA (cerebrovascular accident) stable (8) weakness improved, followup home health PT - HPI History of Present Illness: refer from Dr. Ortega's HPI on 06/23/19 This is a 79 year old female with a past medical history significant for COPD (on 2L), hypertension, CAD, atrial fibrillation (on coumadin) who presents from home after she was found to be confused. Her son checked on her this afternoon and found her lying on the floor. The patient denies syncope, LOC, or head trauma. She reports feeling weak and that is why she was on the ground. Her son asked her a few questions and realized she was confused. At baseline, she does not have any cognitive deficits. The patient reports feeling better since arrival to the hospital. She knows she is at the hospital but think's it is [place]. She knows it is 2019 but thought it was May at first. She denies chest pain, dyspnea, dysuria, urgency, weakness, numbness, dizziness, lightheadedness. In the ER, she underwent a CT of the head which showed no acute process but that the patient may have ventriculomegaly. Urinalysis revealed pyuria. She will be admitted for further management. I did speak with the patie nt regarding code status. She is undecided on what she would like at this time but is agreeable to being a full code for the time being. - HOSPITAL COURSE Hospital Course: pt was admitted for AMS, pt was found to have UTI. UTI is likely the cause of pt's AMS. The detail hospital course is as the following: (1) Altered mental status resolved after treated with antibiotics. (2) Sepsis secondary to UTI BP is normal, pt is hemodynamic stable. UA culture reveals positive for Ecoli. antibiotics is prescribed for pt according to the sensitive study.. (3) Atrial fibrillation with RVR HR is controlled. resume home meds Coumadin, followup PCP for management. Metoprolol dosage increased to 37.5 mg daily for better control of HR (4) Hypertension stable, continue Metoprolol and Lasix home meds. (5) CAD (coronary artery disease) stable, continue home meds aspirin, Simvastatin, metoprolol at home. Stable followup PCP (6) COPD (chronic obstructive pulmonary disease) Stable. She take on 2L of O2 at home. reconcile Advair and albuterol, pt is prescribed Duoneb to manage her COPD, followup PCP (7) History of CVA (cerebrovascular accident) resume home meds Aspirin, statin. Also on coumadin with history of atrial fibrillation. followup PCP (8) weakness improved. followup home health PT. pt declined to have SNF. pt has hx of CVA CT of head reveals there may be a component of central greater than peripheral brain atropy but normal pressure of hydrocephalus should be also considered. Advise pt discuss with her PCP and followup neurologist/neurosurgeon as needed. - ALLERGIES Allergies/Adverse Reactions: Allergies Allergy/AdvReac Type Severity Reaction Status Date / Time amoxicillin trihydrate * Allergy Nausea Verified 03/08/15 14:05 [From Augmentin] potassium clavulanate * Allergy Nausea Verified 03/08/15 14:05 [From Augmentin] morphine AdvReac Unknown Verified 03/08/15 14:05 - MEDICATIONS Home Medications: Ambulatory Orders Medication Instructions Recorded Confirmed Pantoprazole [Protonix] 40 mg PO QDAC 02/15/15 06/24/19 Simvastatin 40 mg PO QPM 02/15/15 06/24/19 Aspirin 81 mg PO DAILY 07/17/18 06/24/19 Warfarin Sodium 2.5 mg PO MOWEFR@0900 07/17/18 06/24/19 Nitroglycerin [Nitrostat] 0.4 mg SL Q5MIN PRN #30 tablet 07/18/18 06/24/19 Acetaminophen [Tylenol Extra 1,000 mg PO TID PRN 06/24/19 06/24/19 Strength] Albuterol Sulf [Ventolin Hfa 2 puffs INH QID 06/24/19 06/24/19 Inhaler] Ascorbic Acid [Vitamin C] 500 mg PO DAILY 06/24/19 06/24/19 Calcium Carbonate [Tums (Calcium 500 mg PO TID 06/24/19 06/24/19 Carbonate 500mg)] Ferrous Gluconate [Iron] 240 mg PO DAILYWM 06/24/19 06/24/19 Furosemide 10 mg PO DAILY 06/24/19 06/24/19 Magnesium Oxide [Mag Ox] 400 mg PO 0806/24/19 06/24/19 Polyethylene Glycol 3350 [Miralax] 17 gm PO DAILY PRN 06/24/19 06/24/19 Warfarin Sodium 3 mg PO SUTUTHSA@0900 06/24/19 06/24/19 Ipratropium/Albuterol [Combivent 4 gm IH Q6H PRN #1 aer.w.adap 06/26/19 Respimat] Metoprolol Succinate [Toprol Xl] 37.5 mg PO DAILY #20 tablet 06/26/19 Nitrofurantoin Monohyd/M-Cryst 100 mg PO BID #14 capsule 06/26/19 [Macrobid 100 mg Capsule] - PHYSICAL EXAM AT DISCHARGE General Appearance: positive: No acute distress, Alert. negative: Lethargic Eyes Bilateral: positive: Normal inspection, PERRL, No lid inflammation, Conjunctivae nml ENT: positive: ENT inspection nml, Pharynx nml, No signs of dehydration. negative: Purulent nasal drainage, Pharyngeal erythema, Oral lesions Neck: positive: Nml inspection, Thyroid nml, No JVD, Trachea midline. negative: Thyromegaly, Lymphadenopathy (R), Lymphadenopathy (L), Stiff neck, Sw elling/bruising, Tracheal deviation Respiratory: positive: Chest non-tender, No respiratory distress. negative: Wheezes, Rales, Rhonchi Cardiovascular: positive: Regular rate & rhythm, No murmur, No gallop. negative: Irregularly irregular, Extrasystoles, Tachycardia, Bradycardia, JVD present, Systolic murmur, Diastolic murmur Peripheral Pulses: positive: 2+ Abdomen: positive: Non-tender, No organomegaly, Nml bowel sounds, No distention. negative: Tenderness, Guarding, Rebound Back: positive: Nml inspection. negative: CVA tenderness (R), CVA tenderness (L) Skin: positive: Color nml, No rash, Warm, Dry. negative: Cyanosis, Diaphoresis, Pallor Extremities: positive: Non-tender, Nml appearance. negative: Calf tenderness, Joint swelling, Aniyah's sign/cords Neurologic/Psychiatric: positive: Oriented x3, Sensation nml, Mood/affect nml. negative: Weakness, Sensory loss, Facial droop, Slurred/abnml speech, Depressed mood/affect - LABS Result Diagrams: 06/26/19 04:25 06/26/19 04:25 - SEPSIS Possible source of Sepsis: Genitourinary Sepsis Criteria: Recorded Heart Rate greater than 90 bpm, URGENT CARE TECHNICIAN: altered consciousness (unrelated to primary neuro pathology) - FOLLOW UP Follow Up: you was found to have UTI, Macrobid is prescribed to finish the treatment course. Duoneb IH is prescribed for your COPD management, you may continue your home O2 as needed for your weakness/unsteady, As we discussed your CT result of brain, there may be a component of central greater than peripheral brain atropy but normal pressure of hydrocephalus should be also considered. you may followup neurologist/neurosurgeon as out-pt as needed. You declined to be d/c to SNF. [facility] is arranged for you. - TIME SPENT Time Spent in Discharge (Minutes): 60
[2019-06-26 13:34] VITALS: BP 131/81
== END 2019-06-26 14:45 | disposition home health service (06) | DRG 872 ==
LOC: EDUNIT# → ED 18:03 → MS3 20:08
PROVIDERS: ADMIT Internal Medicine; ATTEND Nurse Practitioner Gerontology
DX: A41.51 Sepsis due to Escherichia coli [E. coli] (principal); N30.00 Acute cystitis without hematuria; G93.89 Other specified disorders of brain; I48.91 Unspecified atrial fibrillation; I10 Essential (primary) hypertension; J44.9 Chronic obstructive pulmonary disease, unspecified; R53.1 Weakness; K21.9 Gastro-esophageal reflux disease without esophagitis; H54.7 Unspecified visual loss; J32.9 Chronic sinusitis, unspecified; F17.211 Nicotine dependence, cigarettes, in remission; R51 Headache; R26.2 Difficulty in walking, not elsewhere classified; E78.00 Pure hypercholesterolemia, unspecified; F17.200 Nicotine dependence, unspecified, uncomplicated; Z95.5 Presence of coronary angioplasty implant and graft; I25.2 Old myocardial infarction; Z79.82 Long term (current) use of aspirin; Z79.01 Long term (current) use of anticoagulants; Z79.51 Long term (current) use of inhaled steroids; Z86.73 Personal history of transient ischemic attack (TIA), and cerebral infarction without residual deficits; Z99.81 Dependence on supplemental oxygen
CPT/HCPCS: 36415; 70450; 71045; 72125; 80048; 80053; 81001; 83690; 83735; 84100; 85025; 85610; 87040; 87086; 87181; 93005; 94640; 94664; 97161; 97530; 99285; A9270; J7626; 81003

== ENCOUNTER 2019-06-28 20:48 | Outpatient (CLI) | payer MEDICARE, OTHER | END 2019-06-28 20:49 | disposition critical access hospital (66) | LOC: EMS 20:48 | PROVIDERS: ATTEND Surgery | DX: R40.20 Unspecified coma (principal) | CPT/HCPCS: A0425; A0427 ==

== ENCOUNTER 2019-06-28 21:05 | Observation (INO) | payer MEDICARE, OTHER ==
[2019-06-28] MEDS ORDERED: SODIUM CHLORIDE 0.9% 1,000 ML IV ONE (21:13)
--- NOTE | 2019-06-28 21:18 | ED Physician Documentation ---
PD HPI SYNCOPE - Stated complaint Stated Complaint: SYNCOPE - History obtained from History obtained from: EMS - History of Present Illness Timing - onset: Today (just prior to arrival) Preceding symptoms: Unknown Associated symptoms: Unknown. 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 Her son had just come in with some food for them and she had spoken to him and then he heard a thump. He went into the bathroom and she was on the ground said that she had felt lightheaded and then just fell. She cannot scraped up her toes so he was getting that bandaged when he looked up and she just looked very pale and then she just passed out. He estimates she was out for about 10 minutes before the ambulance actually arrived. She did have a pulse at that time. There was no seizure activity. The ambulance arrived they found her with blood pressure 69/40 heart rate in the 90s with A. fib on the monitor but she was not responding to them at all her saturations were only 60%. She is normally on home O2. Blood sugar was 109. They got an IV established to put her on oxygen were loading her into the cot when she began responding to them seemed to have some left-sided neglect but then in route began responding appropriately and was able to answer questions. The son provides the history that she was just in the hospital last week for altered mental status but they never came up with any specific diagnosis. She also had a GI bleed recently and her hemoglobin dropped to 3 the colonoscopy that was performed was complicated by perforated viscus and development of a vaginal fistula. 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 Cardiovascular: Coronary stent, Cardiac catheterization, Vascular surgery, Angioplasty HEENT: Tonsil/Adenoidectomy - Present Medications Home Medications: Ambulatory Orders Medication Instructions Recorded Confirmed RX: Pantoprazole [Protonix] 40 mg PO QDAC 02/15/15 06/24/19 RX: Simvastatin 40 mg PO QPM 02/15/15 06/24/19 RX: Aspirin 81 mg PO DAILY 07/17/18 06/24/19 RX: Warfarin Sodium 2.5 mg PO MOWEFR@0900 07/17/18 06/24/19 RX: Nitroglycerin [Nitrostat] 0.4 mg SL Q5MIN PRN #30 tablet 07/18/18 06/24/19 RX: Acetaminophen [Tylenol Extra 1,000 mg PO TID PRN 06/24/19 06/24/19 Strength] RX: Albuterol Sulf [Ventolin Hfa 2 puffs INH QID 06/24/19 06/24/19 Inhaler] RX: Ascorbic Acid [Vitamin C] 500 mg PO DAILY 06/24/19 06/24/19 RX: Calcium Carbonate [Tums 500 mg PO TID 06/24/19 06/24/19 (Calcium Carbonate 500mg)] RX: Ferrous Gluconate [Iron] 240 mg PO DAILYWM 06/24/19 06/24/19 RX: Furosemide 10 mg PO DAILY 06/24/19 06/24/19 RX: Magnesium Oxide [Mag Ox] 400 mg PO 0806/24/19 06/24/19 RX: Polyethylene Glycol 3350 17 gm PO DAILY PRN 06/24/19 06/24/19 [Miralax] RX: Warfarin Sodium 3 mg PO SUTUTHSA@0900 06/24/19 06/24/19 Nitrofurantoin Monohyd/M-Cryst 100 mg PO BID #14 capsule 06/26/19 [Macrobid 100 mg Capsule] RX: Ipratropium/Albuterol 4 gm IH Q6H PRN #1 aer.w.adap 06/26/19 [Combivent Respimat] RX: Metoprolol Succinate [Toprol 37.5 mg PO DAILY #20 tablet 06/26/19 Xl] - Allergies Allergies/Adverse Reactions: Allergies Allergy/AdvReac Type Severity Reaction Status Date / Time amoxicillin trihydrate * Allergy Nausea Verified 03/08/15 14:05 [From Augmentin] potassium clavulanate * Allergy Nausea Verified 03/08/15 14:05 [From Augmentin] morphine AdvReac Unknown Verified 03/08/15 14:05 - Social History Does the pt smoke?: No Smoking Status: Current every day smoker Does the pt drink ETOH?: Yes Does the pt have substance abuse?: No - POLST Patient has POLST: No POLST Status: Full Code PD ED PE NORMAL - Vitals Vital signs reviewed: Yes - General General: Well developed/nourished, Other (She is alert to the fact that she is at the hospital and told me her name. She looks just slightly disoriented looking around the room) - HEENT HEENT: Atraumatic, PERRL, EOMI, Other (Mucous membranes are dry.) - Cardiac Cardiac: No murmur, Other (Irregular rhythm.) - Respiratory Respiratory: No respiratory distress, Clear bilaterally - Abdomen Abdomen: Normal bowel sounds, Soft, Non tender - Derm Derm: Other (She looks pale) - Extremities Extremities: No deformity, No tenderness to palpate, No edema - Neuro Neuro: Other (She is awake to person and place. 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 Sensation is intact light touch. There are no obvious cranial nerve deficits.) Results - Vitals Vitals: Vital Signs - 24 hr 06/28/19 06/28/19 06/28/19 21:06 21:14 21:21 Temperature 36.4 C L Heart Rate 90 90 88 Respiratory 25 H 13 Rate Blood Pressure 111/89 H 129/106 H O2 Saturation 96 95 06/28/19 06/28/19 06/28/19 21:28 21:46 22:23 Temperature Heart Rate 79 90 89 Respiratory 16 18 16 Rate Blood Pressure 126/95 H 140/99 H 119/71 O2 Saturation 93 94 96 06/28/19 06/28/19 06/29/19 23:00 23:43 00:00 Temperature Heart Rate 93 98 85 Respiratory 20 12 16 Rate Blood Pressure 103/73 113/86 H 97/77 O2 Saturation 97 95 97 06/29/19 06/29/19 06/29/19 00:30 01:05 01:07 Temperature 36.5 C Heart Rate 85 85 Respiratory 18 16 Rate Blood Pressure 99/80 113/89 H O2 Saturation 95 97 06/29/19 06/29/19 06/29/19 01:30 02:00 02:30 Temperature Heart Rate 87 91 91 Respiratory 17 16 19 Rate Blood Pressure 112/88 H 126/86 H 112/99 H O2 Saturation 96 94 96 Oxygen O2 Source Nasal cannula Oxygen Flow Rate 2 - EKG (time done) 2108 Rate: Rate (enter#) Rhythm: Atrial fibrillation, Other (PVCs) QRS: Normal Ischemia: Normal ST segments Compare to prior EKG: Old EKG unavailable - Labs Labs: Laboratory Tests 06/28/19 06/28/19 06/28/19 21:13 21:20 21:20 WBC 11.2 H RBC 4.84 Hgb 14.2 Hct 45.1 MCV 93.2 MCH 29.3 MCHC 31.5 L RDW 13.4 Plt Count 273 MPV 10.1 Neut # (Auto) 6.1 Lymph # (Auto) 3.3 Mobile # (Auto) 1.1 H Eos # (Auto) 0.5 Baso # (Auto) 0.1 Absolute Nucleated RBC 0.00 Nucleated RBC % 0.0 PT INR Sodium 140 Potassium 3.4 L Chloride 103 Carbon Dioxide 25 Anion Gap 12.0 BUN 12 Creatinine 0.9 Estimated GFR (MDRD) 61 L Glucose 126 H Lactic Acid 1.6 Calcium 9.2 Total Bilirubin 0.8 AST 14 ALT < 10 L Alkaline Phosphatase 62 Troponin I High Sens Total Protein 6.6 L Albumin 3.5 Globulin 3.1 Albumin/Globulin Ratio 1.1 Lipase 21 L Urine Color Urine Clarity Urine pH Ur Specific [place] Urine Protein Urine Glucose (UA) Urine Ketones Urine Occult Blood Urine Nitrite Urine Bilirubin Urine Urobilinogen Ur Leukocyte Esterase Urine RBC Urine WBC Ur Squamous Epith Cells Urine Bacteria Urine Casts Ur Microscopic Review Urine Culture Comments Ethyl Alcohol 8.7 06/28/19 06/28/19 06/29/19 21:20 21:45 00:30 WBC RBC Hgb Hct MCV MCH MCHC RDW Plt Count MPV Neut # (Auto) Lymph # (Auto) Mobile # (Auto) Eos # (Auto) Baso # (Auto) Absolute Nucleated RBC Nucleated RBC % PT 41.7 H INR 3.7 H Sodium Potassium Chloride Carbon Dioxide Anion Gap BUN Creatinine Estimated GFR (MDRD) Glucose Lactic Acid Calcium Total Bilirubin AST ALT Alkaline Phosphatase Troponin I High Sens 14.0 Total Protein Albumin Globulin Albumin/Globulin Ratio Lipase Urine Color YELLOW Urine Clarity CLEAR Urine pH 6.5 Ur Specific [place] 1.020 Urine Protein 30 H Urine Glucose (UA) NEGATIVE Urine Ketones TRACE Urine Occult Blood NEGATIVE Urine Nitrite NEGATIVE Urine Bilirubin NEGATIVE Urine Urobilinogen 1 (NORMAL) Ur Leukocyte Esterase NEGATIVE Urine RBC None Seen Urine WBC 0-3 Ur Squamous Epith Cells FEW Squamous Urine Bacteria Rare Urine Casts 0-2 Hyaline Casts Ur Microscopic Review INDICATED Urine Culture Comments NOT INDICATED Ethyl Alcohol - Rads (name of study) head ct Radiology: See rad report (Neg acute) ct c-spine Radiology: See rad report cxr Radiology: See rad report PD MEDICAL DECISION MAKING - ED course Complexity details: reviewed old records, reviewed results, re-evaluated patient, considered differential, d/w patient, d/w family, d/w 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 She has an INR 3.7. Chest x-ray is clear and her CT does not show anything acute. She remained on a monitor in A. fib but with rates in the 90s. Blood pressure improved and to 110 and saturations were 95% on 2 L. The patient was very lucent but had no memory of what precipitated her visit here or even the early time here in the emergency department when she went to CT scan. Patient was just discharged from the hospital 2 days ago but with this recurrent syncopal episode I think she needs to be readmitted and worked up. Consider transferring her to [place] but after discussion with the [place] hospitalist they did not see any benefit to her being transferred at this time and recommended outpatient follow-up after admission here with a syncopal work-up. Departure - Departure Disposition: ED Place in Observation Clinical Impression: Syncope Qualifiers: Syncope type: unspecified Qualified Code(s): R55 - Syncope and collapse Discharge Date/Time: 06/29/19 03:29
[2019-06-28 21:28] LABS: BASOPHILS # (AUTO) 0.1 10^3/uL (0.0-0.1); BASOPHILS % (AUTO) 0.9 %; EOSINOPHILS # (AUTO) 0.5 10^3/uL (0.0-0.7); EOSINOPHILS % (AUTO) 4.8 %; HGB - HEMOGLOBIN 14.2 g/dL (12.0-16.0); LYMPHOCYTES # (AUTO) 3.3 10^3/uL (1.5-3.5); LYMPHOCYTES % (AUTO) 29.7 %; MEAN CORPUSCULAR HEMOGLOBIN 29.3 pg (27.0-31.0); MEAN CORPUSCULAR HGB CONC 31.5 g/dL (32.0-36.0); MEAN CORPUSCULAR VOLUME 93.2 fL (81.0-99.0); MEAN PLATELET VOLUME 10.1 fL (7.9-10.8); MONOCYTES # (AUTO) 1.1 10^3/uL (0.0-1.0); NEUTROPHILS # (AUTO) 6.1 10^3/uL (1.5-6.6); NEUTROPHILS % (AUTO) 54.2 %; PLT - PLATELET COUNT 273 10^3/uL (130-450); RED BLOOD COUNT 4.84 10^6/uL (4.20-5.40); RED CELL DISTRIBUTION WIDTH 13.4 % (12.0-15.0); WHITE BLOOD COUNT 11.2 x10^3/uL (4.8-10.8)
[2019-06-28 21:38] LABS: ALBUMIN 3.5 g/dL (3.2-5.5); ALBUMIN/GLOBULIN RATIO 1.1 (1.0-2.2); ALKALINE PHOSPHATASE 62 IU/L (42-121); ALT ALANINE AMINOTRANSFERASE < 10 IU/L (10-60); AST ASPARTATE AMINOTRANSFERASE 14 IU/L (10-42); BILIRUBIN,TOTAL 0.8 mg/dL (0.2-1.0); BUN - BLOOD UREA NITROGEN 12 mg/dL (6-20); CALCIUM 9.2 mg/dL (8.5-10.3); CARBON DIOXIDE - CO2 25 mmol/L (21-32); CHLORIDE 103 mmol/L (101-111); CREATININE 0.9 mg/dL (0.4-1.0); GFR - MDRD 61 (>89); GLUCOSE 126 mg/dL (70-100); LIPASE 21 U/L (22-51); SODIUM 140 mmol/L (135-145); TOTAL PROTEIN 6.6 g/dL (6.7-8.2)
--- NOTE | 2019-06-28 21:46 | XRAY Report ---
Reason: chest pain Procedure Date: 06/28/2019 Accession Number: [id number] / [id number] Procedure: XR - Chest 1 View X-Ray CPT Code: 90301 FULL RESULT: EXAM: CHEST RADIOGRAPHY. EXAM DATE: 06/28/2019 09:23 PM. CLINICAL HISTORY: Chest pain. COMPARISON: CHEST 1 VIEW 06/25/2019 8:23 AM. TECHNIQUE: 1 view. FINDINGS: Lungs/Pleura: Persistent opacity at the right lung base with blunting of the costophrenic angle. Left lung remains clear. Mediastinum: Within exam limitations, the cardiomediastinal contour is normal. Other: None. IMPRESSION: Persistent small right pleural effusion and basilar atelectasis versus airspace disease. RADIA
[2019-06-28] MEDS ORDERED: ONDANSETRON 4 MG/2 ML VIAL ONE (21:48)
[2019-06-28] MEDS ORDERED: ONDANSETRON 4 MG/2 ML VIAL IVP STA (21:51)
[2019-06-28 21:58] LABS: INR 3.7 (0.8-1.2); PT - PROTHROMBIN TIME 41.7 secs (9.9-12.6)
--- NOTE | 2019-06-28 22:05 | CT Report ---
Reason: fall syncope Procedure Date: 06/28/2019 Accession Number: [id number] / [id number] Procedure: CT - CERVICAL SPINE WO CPT Code: FULL RESULT: EXAM: CT CERVICAL SPINE WITHOUT CONTRAST DATE: 06/28/2019 09:38 PM. HISTORY: Fall syncope. COMPARISONS: CERVICAL SPINE W/O 06/23/2019 6:17 PM. TECHNIQUE: Thin-section axial images were acquired of the cervical spine without contrast. Post-processing: Coronal and sagittal reformats. Other: None. In accordance with CT protocol optimization, one or more of the following dose reduction techniques were utilized for this exam: automated exposure control, adjustment of mA and/or KV based on patient size, or use of iterative reconstructive technique. FINDINGS: There is motion artifact on several slices which degrades the images. Alignment: No scoliosis or spondylolisthesis. Bones: The patient's head is rotated towards the left. There are no definite subluxations of the cervical spine. There are no acute fractures. As previously noted there are degenerative changes throughout the cervical spine and there are relatively advanced degenerative changes at the facets taken on the right at C3-C4, C4-C5, and C5-C6. List severe degeneration is noted at the left facet joints at these levels. There is cervical spondylosis involving the disks. There is posterior osteophytic ridging at the C6-C7 level. Other: Centrilobular emphysema seen in the lung apices. There is also some mucus in the trachea. IMPRESSION: 1 . No evidence for acute fractures or subluxations. 2. Moderate to advanced degenerative changes of the cervical spine symmetry the prior study. 3. Centrilobular emphysema. RADIA
--- NOTE | 2019-06-28 22:08 | CT Report ---
Reason: syncope Procedure Date: 06/28/2019 Accession Number: [id number] / [id number] Procedure: CT - HEAD WO CPT Code: FULL RESULT: EXAM: CT HEAD EXAM DATE: 06/28/2019 09:39 PM. CLINICAL HISTORY: Syncope. COMPARISON: CERVICAL SPINE W/O 06/23/2019 6:17 PM HEAD W/O 06/23/2019 6:17 PM. TECHNIQUE: Multiaxial CT images were obtained from the foramen magnum to the vertex. Reformats: Sagittal and coronal. IV contrast: None. In accordance with CT protocol optimization, one or more of the following dose reduction techniques were utilized for this exam: automated exposure control, adjustment of mA and/or KV based on patient size, or use of iterative reconstructive technique. FINDINGS: Parenchyma: No intraparenchymal hemorrhage. No evidence of mass, midline shift, or CT findings of infarction. [place]-white differentiation is distinct. There are confluent areas of decreased attenuation within the white matter tracts compatible with changes of microangiopathy. There are no [place] and hemorrhagic contusions within the brain. Extraaxial Spaces: Normal for age. No subdural or epidural collections identified. Ventricles: As previous noted the ventricles are disproportionately enlarged to the sulci. Sinuses and Orbits: There is a retention cyst in the right maxillary antrum. Bones: No evidence of fracture or calvarial defect. Other: None. IMPRESSION: 1. Age-related changes of the brain. No acute findings. 2. Prominent CSF spaces. The ventricles are disproportionately enlarged compared to the sulci and cisterns. While this may be from central atrophy and also raise the possibility of normal pressure hydrocephalus. If the patient has a history of memory loss, incontinence, and gait dyspraxia a dedicated MRI scan for CSF flow might be considered for further evaluation of NPH. RADIA
[2019-06-29 00:45] LABS: BILIRUBIN,URINE NEGATIVE (NEGATIVE); GLUCOSE, URINE (UA) NEGATIVE (NEGATIVE); KETONES,URINE (UA) TRACE mg/dL (NEGATIVE); LEUKOCYTE ESTERASE, URINE NEGATIVE (NEGATIVE); NITRITE,URINE NEGATIVE (NEGATIVE); OCCULT BLOOD,URINE NEGATIVE (NEGATIVE); PH,URINE 6.5 PH (5.0-7.5); PROTEIN,URINE 30 mg/dL (NEGATIVE); UROBILINOGEN,URINE 1 (NORMAL) E.U./dL (NORMAL)
[2019-06-29 00:48] LABS: CLARITY,URINE CLEAR (CLEAR)
[2019-06-29 00:55] LABS: BACTERIA,URINE Rare /HPF (None Seen); RBC,URINE None Seen /HPF (0-5)
[2019-06-29 00:56] LABS: CASTS, URINE 0-2 Hyaline Casts /LPF; SQUAMOUS EPITHELIAL CELL,UR FEW Squamous (<= Few)
[2019-06-29] MEDS ORDERED: SODIUM CHLORIDE FLUSH 0.9% 10 ML SYRINGE IVP PRN (02:44)
[2019-06-29] MEDS ORDERED: SODIUM CHLORIDE 0.9% 1,000 ML IV SCH ×3 (03:00→08:19)
--- NOTE | 2019-06-29 04:22 | HISTORY & PHYSICAL EXAMINATION ---
Chief Complaint - Chief Complaint Chief Complaint: syncope History of Present Illness - Admitted From Admitted From:: [facility] ED - History Obtained From Records Reviewed: yes History obtained from: patient - History of Present Illness HPI Comment/Other: Patient seen on 06/29/19 at 04:00 am. Patient is a 79 y/o female who presented to the ED after a syncopal episode. This happened after she went to the bathroom and then stood up after she was done. She was feeling dizzy prior to this. She remember registering that her son came into the house. She remember calling out to him for help after she fell. It as reported dayanara she had a period she she was just blank and not responding to question. There had been an initial complain of a possible facial drop. However this completely resolved by the time the patient arrived the ED. She was found to have a SBP in the 90's in the field. She was just discharged from [facility] after she was treated for a UTI. She has history of bowel perf as a result of a colonoscopy. 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 She is on coumadin for atrial fibrillation and has Hx of CAD with stents. She is currently on 2L N/C which is her baseline. She denies chest pain, CLIF, abd pain, n/v/d, fever or chills Orthostatics were positive with SBP going from 120's to 90's to 80's from laying to standing to seating. 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 Social History Notes: The patient lives alone and does all of her ADLs. 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 She has one son (João) who lives nearby She denies alcohol use or illicit drugs. She states that she has been a life long smoker since age 16 and smoked pack per day but quite about 10 months ago. - Substance History Use: Uses substance without health or social issues: NONE, Tobacco - POLST Patient has POLST: No POLST Status: Full Code Meds/Allgy - Home Medications Home Medications: Ambulatory Orders Medication Instructions Recorded Confirmed Pantoprazole [Protonix] 40 mg PO QDAC 02/15/15 06/24/19 Simvastatin 40 mg PO QPM 02/15/15 06/24/19 Aspirin 81 mg PO DAILY 07/17/18 06/24/19 Warfarin Sodium 2.5 mg PO MOWEFR@89907/17/18 06/24/19 Nitroglycerin [Nitrostat] 0.4 mg SL Q5MIN PRN #30 tablet 07/18/18 06/24/19 Acetaminophen [Tylenol Extra 1,000 mg PO TID PRN 06/24/19 06/24/19 Strength] Albuterol Sulf [Ventolin Hfa 2 puffs INH QID 06/24/19 06/24/19 Inhaler] Ascorbic Acid [Vitamin C] 500 mg PO DAILY 06/24/19 06/24/19 Calcium Carbonate [Tums (Calcium 500 mg PO TID 06/24/19 06/24/19 Carbonate 500mg)] Ferrous Gluconate [Iron] 240 mg PO DAILYWM 06/24/19 06/24/19 Furosemide 10 mg PO DAILY 06/24/19 06/24/19 Magnesium Oxide [Mag Ox] 400 mg PO 0806/24/19 06/24/19 Polyethylene Glycol 3350 [Miralax] 17 gm PO DAILY PRN 06/24/19 06/24/19 Warfarin Sodium 3 mg PO SUTUTHSA@89906/24/19 06/24/19 Ipratropium/Albuterol [Combivent 4 gm IH Q6H PRN #1 aer.w.adap 06/26/19 Respimat] Metoprolol Succinate [Toprol Xl] 37.5 mg PO DAILY #20 tablet 06/26/19 Nitrofurantoin Monohyd/M-Cryst 100 mg PO BID #14 capsule 06/26/19 [Macrobid 100 mg Capsule] - Allergies Allergies/Adverse Reactions: Allergies Allergy/AdvReac Type Severity Reaction Status Date / Time amoxicillin trihydrate * Allergy Nausea Verified 03/08/15 14:05 [From Augmentin] potassium clavulanate * Allergy Nausea Verified 03/08/15 14:05 [From Augmentin] morphine AdvReac Unknown Verified 03/08/15 14:05 Review of Systems - Constitutional Constitutional: denies: Fatigue, Fever, Chills, Weakness - Eyes Eyes: denies: Amaurosis, Blurred vision, Vision loss, Dipolpia - Ears, Nose & Throat Ears, Nose & Throat: denies: Nasal pain, Sore throat, Hoarseness - Cardiovascular Cariovascular: reports: Irregular heart rate, Lightheadedness, Syncope. denies: Chest pain, Edema, Exertional dyspnea, Decr. exercise tolerance - Respiratory Respiratory: denies: Cough, Sputum production, Wheezing, SOB at rest, SOB with exertion - Gastrointestinal Gastrointestinal: denies: Abdominal pain, Abdominal distention, Constipation, Nausea, Vomiting, Reflux/heartburn - Genitourinary Genitourinary: denies: Dysuria, Frequency, Urgency, Hematuria - Musculoskeletal Musculoskeletal: denies: Muscle pain, Back pain - Integumentary Integumentary: denies: Rash, Pruritis, Lesions - Neurological Neurological: reports: Dizziness. denies: General weakness, Focal weakness, Headache - Psychiatric Psychiatric: denies: Depression, Anxiety - Endocrine Endocrine: denies: Polyuria, Polydypsia - Hematologic/Lymphatic Hematologic/Lymphatic: denies: Anemia, Bruising, Petechiae Prior Level of Functionality: She is independent of activities of daily living Exam - Vital Signs Vital Signs: Vital Signs x48h Temp Pulse Pulse Pulse Pulse Pulse Resp 06/29/19 04:03 53 L 93 96 06/29/19 03:52 36.5 C 96 18 06/29/19 02:30 91 19 06/29/19 02:00 91 16 06/29/19 01:30 87 17 06/29/19 01:07 36.5 C 06/29/19 01:05 85 16 06/29/19 00:30 85 18 06/29/19 00:00 85 16 06/28/19 23:43 98 12 06/28/19 23:00 93 20 06/28/19 22:23 89 16 06/28/19 21:46 90 18 06/28/19 21:28 79 16 06/28/19 21:21 88 13 06/28/19 21:14 90 06/28/19 21:06 36.4 C L 90 25 H BP BP BP BP BP Pulse Ox 06/29/19 04:03 82/68 L 93/51 L 131/69 H 06/29/19 03:52 131/69 H 93 06/29/19 02:30 112/99 H 96 06/29/19 02:00 126/86 H 94 06/29/19 01:30 112/88 H 96 06/29/19 01:07 06/29/19 01:05 113/89 H 97 06/29/19 00:30 99/80 95 06/29/19 00:00 97/77 97 06/28/19 23:43 113/86 H 95 06/28/19 23:00 103/73 97 06/28/19 22:23 119/71 96 06/28/19 21:46 140/99 H 94 06/28/19 21:28 126/95 H 93 06/28/19 21:21 129/106 H 95 06/28/19 21:14 06/28/19 21:06 111/89 H 96 - Physical Exam General Appearance: positive: No acute distress, Alert Eyes Bilateral: positive: Normal inspection, PERRL, EOMI ENT: positive: ENT inspection nml Neck: positive: Nml inspection, No JVD, Trachea midline Respiratory: positive: Chest non-tender, No respiratory distress, Breath sounds nml. negative: Wheezes, Rales, Rhonchi Cardiovascular: positive: Irregularly irregular Abdomen: positive: Non-tender, No organomegaly, Nml bowel sounds, No distention. negative: Guarding, Rebound Back: positive: Nml inspection Skin: positive: Other (brusing on back and left hand from fall) Extremities: positive: Non-tender, Full ROM, Nml appearance, No pedal edema Neurologic/Psychiatric: positive: Oriented x3, CN's nml (2-12), Motor nml, Sensation nml, Mood/affect nml Conclusion/Plan - Problem List (1) Syncope Conclusion/Plan: Syspect 2/2 hypovolemia/dehydration Orthostatics are positive. IV hydration with normal saline. 2D echo in the am Qualifiers: Syncope type: unspecified Qualified Code(s): R55 - Syncope and collapse (2) Atrial fibrillation Conclusion/Plan: On metoprolol and coumadin Will hold metoprolol for now Qualifiers: Atrial fibrillation type: chronic Qualified Code(s): I48.2 - Chronic atrial fibrillation (3) CAD (coronary artery disease) Conclusion/Plan: On aspirin, simvastatin and metoprolol at home. Will hold metoprolol for now Qualifiers: Associated angina: with unspecified angina (4) COPD (chronic obstructive pulmonary disease) Conclusion/Plan: Not in exacerbation On 2L O2 currently (baseline) Resume home regimen - Lab Results Fish Bones: 06/28/19 21:13 06/28/19 21:20 Core Measures - Anticipated LOS I expect patient to be DC'd or transferred within 96 hours.: Yes - DVT/VTE - Prophylaxis VTE/DVT Device ordered at admit?: Yes
[2019-06-29 05:22] LABS: BASOPHILS % (AUTO) 0.4 %; EOSINOPHILS # (AUTO) 0.1 10^3/uL (0.0-0.7); EOSINOPHILS % (AUTO) 0.5 %; HGB - HEMOGLOBIN 12.7 g/dL (12.0-16.0); LYMPHOCYTES # (AUTO) 1.2 10^3/uL (1.5-3.5); LYMPHOCYTES % (AUTO) 12.4 %; MEAN CORPUSCULAR HEMOGLOBIN 28.2 pg (27.0-31.0); MEAN CORPUSCULAR HGB CONC 31.1 g/dL (32.0-36.0); MEAN CORPUSCULAR VOLUME 90.7 fL (81.0-99.0); MEAN PLATELET VOLUME 10.5 fL (7.9-10.8); MONOCYTES # (AUTO) 0.6 10^3/uL (0.0-1.0); MONOCYTES % (AUTO) 6.3 %; NEUTROPHILS # (AUTO) 7.5 10^3/uL (1.5-6.6); NEUTROPHILS % (AUTO) 80.1 %; PLT - PLATELET COUNT 220 10^3/uL (130-450); RED CELL DISTRIBUTION WIDTH 13.6 % (12.0-15.0); WHITE BLOOD COUNT 9.4 x10^3/uL (4.8-10.8)
[2019-06-29 05:36] LABS: CALCIUM 9.2 mg/dL (8.5-10.3); CREATININE 0.8 mg/dL (0.4-1.0)
[2019-06-29] MEDS ORDERED: SODIUM CHLORIDE FLUSH 0.9% 10 ML SYRINGE IVP SCH (09:00)
[2019-06-29] MEDS ORDERED: POLYETHYLENE GLYCOL 3350 17 GM PACKET PO SCH (09:00)
[2019-06-29] MEDS ORDERED: ASPIRIN CHEW 81 MG TABLET PO SCH (09:00)
[2019-06-29 12:24] VITALS: BP 126/71
--- NOTE | 2019-06-29 13:37 | Discharge Plan ---
Discharge Plan Problem Reviewed?: Yes Disposition: 01 Home, Self Care Condition: Poor Diet: Regular Activity Restrictions: Activity as Tolerated Shower Restrictions: No (fall precaution) Instruction Topics: Syncope, Dehydration Health Concerns: syncope and dehydration Plan of Treatment: your test ECHO and EKG are unremarkable, please slow standup and keep you hydration. advise you on last admission for followup neurologist/neurosurgeon as out-pt for the possibility of normal pressure hydrocephalus in your CT of brain. Your INR is 3.7 today, you may not take Coumadin today, followup your PCP in one week to test PT/INR to continue management of your anticoagulation intake. Care Goals: stabilization of your medical conditions Assessment: assessment as the above Additional Instructions or Follow Up instructions: you may followup your PCP in one week. your test ECHO and EKG are unremarkable, please slow standup and keep you hydration. advise you on last admission for followup neurologist/neurosurgeon as out-pt for the possibility of normal pressure hydrocephalus in your CT of brain. Your INR is 3.7 today, you may not take Coumadin today, followup your PCP in one week to test PT/INR to continue management of your anticoagulation intake. No Smoking: If you smoke, Please STOP! Call for help.
--- NOTE | 2019-06-29 14:03 | DISCHARGE SUMMARY ---
Discharge Summary Discharge Date: 06/29/19 Discharging Provider: [place] Primary Care Provider: Bisi Brower Condition at Discharge: Poor Discharge Disposition: 01 Home, Self Care Discharge Facility Name: home - DIAGNOSES Admission Diagnoses: (1) Syncope (2) Atrial fibrillation (3) CAD (coronary artery disease) (4) COPD (chronic obstructive pulmonary disease) Discharge Diagnoses with Status of Each Condition: (1) Syncope stable (2) Atrial fibrillation stable (3) CAD (coronary artery disease) stable (4) COPD (chronic obstructive pulmonary disease) stable 5)orthostatic hypotension stable (6)dehydration improved/stable - HPI History of Present Illness: refer from Dr. Yeung's HPI on 06/29/19 Patient seen on 06/29/19 at 04:00 am. Patient is a 79 y/o female who presented to the ED after a syncopal episode. This happened after she went to the bathroom and then stood up after she was done. She was feeling dizzy prior to this. She remember registering that her son came into the house. She remember calling out to him for help after she fell. It as reported dayanara she had a period she she was just blank and not responding to question. There had been an initial complain of a possible facial drop. However this completely resolved by the time the patient arrived the ED. She was found to have a SBP in the 90's in the field. She was just discharged from [facility] after she was treated for a UTI. She has history of bowel perf as a result of a colonoscopy. 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 She is on coumadin for atrial fibrillation and has Hx of CAD with stents. She is currently on 2L N/C which is her baseline. She denies chest pain, CLIF, abd pain, n/v/d, fever or chills Orthostatics were positive with SBP going from 120's to 90's to 80's from laying to standing to seating. - HOSPITAL COURSE Hospital Course: pt was admitted for syncope. pt's ECHO and EKG is unremarkable. pt was found orthostatic hypotension and some dehydration detail hospital course is as the below 1) Syncope stable. pt's ECHO and EKG are unremarkable. pt has orthostatic positive. the cause of syncope can be combination of orthostatic hypotension and dehydration. advise pt slow standup for prevention of orthostatic hypotension to cause the fall, and keep you hydration (2) Atrial fibrillation stable HR, continue Coumadin, followup PCP manage (3) CAD (coronary artery disease) stable (4) COPD (chronic obstructive pulmonary disease) stable (5)orthostatic hypotension advise pt stand slow and prevention of fall (6)dehydration advise pt keep hydration and prevention hypotensive your test ECHO and EKG are unremarkable, please slow standup and keep you hydration. advise you on last admission for followup neurologist/neurosurgeon as out-pt for the possibility of normal pressure hydrocephalus in your CT of brain. Your INR is 3.7 today, you may not take Coumadin today, followup your PCP in one week to test PT/INR to continue management of your anticoagulation intake. you may followup your PCP in one week. your test ECHO and EKG are unremarkable, please slow standup and keep you hydration. advise you on last admission for followup neurologist/neurosurgeon as out-pt for the possibility of normal pressure hydrocephalus in your CT of brain. Your INR is 3.7 today, you may not take Coumadin today, followup your PCP in one week to test PT/INR to continue management of your anticoagulation intake. - ALLERGIES Allergies/Adverse Reactions: Allergies Allergy/AdvReac Type Severity Reaction Status Date / Time amoxicillin trihydrate * Allergy Nausea Verified 03/08/15 14:05 [From Augmentin] potassium clavulanate * Allergy Nausea Verified 03/08/15 14:05 [From Augmentin] morphine AdvReac Unknown Verified 03/08/15 14:05 - MEDICATIONS Home Medications: Ambulatory Orders Medication Instructions Recorded Confirmed Pantoprazole [Protonix] 40 mg PO QDAC 02/15/15 06/29/19 Simvastatin 40 mg PO QPM 02/15/15 06/29/19 Aspirin 81 mg PO DAILY 07/17/18 06/29/19 Warfarin Sodium 2.5 mg PO MOWEFR@0900 07/17/18 06/29/19 Nitroglycerin [Nitrostat] 0.4 mg SL Q5MIN PRN #30 tablet 07/18/18 06/29/19 Acetaminophen [Tylenol Extra 1,000 mg PO TID PRN 06/24/19 06/29/19 Strength] Albuterol Sulf [Ventolin Hfa 2 puffs INH QID 06/24/19 06/29/19 Inhaler] Ascorbic Acid [Vitamin C] 500 mg PO DAILY 06/24/19 06/29/19 Calcium Carbonate [Tums (Calcium 500 mg PO TID 06/24/19 06/29/19 Carbonate 500mg)] Ferrous Gluconate [Iron] 240 mg PO DAILYWM 06/24/19 06/29/19 Furosemide 10 mg PO DAILY 06/24/19 06/29/19 Magnesium Oxide [Mag Ox] 400 mg PO 0800 06/24/19 06/29/19 Polyethylene Glycol 3350 [Miralax] 17 gm PO DAILY PRN 06/24/19 06/29/19 Warfarin Sodium 3 mg PO SUTUTHSA@0900 06/24/19 06/29/19 Ipratropium/Albuterol [Combivent 4 gm IH Q6H PRN #1 aer.w.adap 06/26/19 06/29/19 Respimat] Metoprolol Succinate [Toprol Xl] 37.5 mg PO DAILY #20 tablet 06/26/19 06/29/19 - PHYSICAL EXAM AT DISCHARGE General Appearance: positive: No acute distress, Alert. negative: Lethargic Eyes Bilateral: positive: Normal inspection, PERRL, No lid inflammation, Conjunctivae nml ENT: positive: ENT inspection nml, Pharynx nml, No signs of dehydration. negative: Purulent nasal drainage, Pharyngeal erythema, Oral lesions Neck: positive: Nml inspection, Thyroid nml, No JVD. negative: Trachea midline, Thyromegaly, Lymphadenopathy (R), Lymphadenopathy (L), Stiff neck, Swelling/bruising, Tracheal deviation Respiratory: positive: Chest non-tender, No respiratory distress. negative: Wheezes, Rales, Rhonchi Cardiovascular: positive: Regular rate & rhythm, No murmur, No gallop. negative: Irregularly irregular, Extrasystoles, Tachycardia, Bradycardia, JVD present, Systolic murmur, Diastolic murmur Back: positive: Nml inspection. negative: CVA tenderness (R), CVA tenderness (L) Skin: positive: Color nml, No rash, Warm, Dry. negative: Cyanosis, Diaphoresis Extremities: positive: Non-tender, Nml appearance. negative: Calf tenderness, Joint swelling, Aniyah's sign/cords Neurologic/Psychiatric: positive: Oriented x3, Sensation nml, Mood/affect nml. negative: Weakness, Sensory loss, Facial droop, Slurred/abnml speech, Depressed mood/affect - LABS Result Diagrams: 06/29/19 04:49 06/29/19 04:49 - FOLLOW UP Follow Up: your test ECHO and EKG are unremarkable, please slow standup and keep you hydration. advise you on last admission for followup neurologist/neurosurgeon as out-pt for the possibility of normal pressure hydrocephalus in your CT of brain. Your INR is 3.7 today, you may not take Coumadin today, followup your PCP in one week to test PT/INR to continue management of your anticoagulation intake. you may followup your PCP in one week. your test ECHO and EKG are unremarkable, please slow standup and keep you hydration. advise you on last admission for followup neurologist/neurosurgeon as out-pt for the possibility of normal pressure hydrocephalus in your CT of brain. Your INR is 3.7 today, you may not take Coumadin today, followup your PCP in one week to test PT/INR to continue management of your anticoagulation intake. - TIME SPENT Time Spent in Discharge (Minutes): 60
== END 2019-06-29 14:30 | disposition home or self-care (01) ==
LOC: EDUNIT# → ED 21:05 → MS2 06-29 02:44
PROVIDERS: ADMIT Internal Medicine; ATTEND Nurse Practitioner Gerontology
DX: R55 Syncope and collapse (principal); R41.82 Altered mental status, unspecified; I48.2 Chronic atrial fibrillation; I25.10 Atherosclerotic heart disease of native coronary artery without angina pectoris; J44.9 Chronic obstructive pulmonary disease, unspecified; I95.1 Orthostatic hypotension; E86.0 Dehydration; Z95.5 Presence of coronary angioplasty implant and graft; Z87.440 Personal history of urinary (tract) infections; Z99.81 Dependence on supplemental oxygen; I10 Essential (primary) hypertension; I25.2 Old myocardial infarction; D68.8 Other specified coagulation defects; R91.8 Other nonspecific abnormal finding of lung field; Z86.73 Personal history of transient ischemic attack (TIA), and cerebral infarction without residual deficits; Z87.891 Personal history of nicotine dependence; Z79.01 Long term (current) use of anticoagulants; Z91.81 History of falling; S60.222A Contusion of left hand, initial encounter; W18.30XA Fall on same level, unspecified, initial encounter; Y92.012 Bathroom of single-family (private) house as the place of occurrence of the external cause
CPT/HCPCS: 36415; 51701; 70450; 71045; 72125; 80048; 80053; 81001; 83605; 83690; 84484; 85025; 85610; 87040; 93005; 93306; 96361; 96374; 99285; A9270; G0378; 80320; 81003; 87086

== ENCOUNTER 2019-07-06 08:00 | Outpatient (CLI) | payer MEDICARE, OTHER | END 2019-07-06 23:59 | disposition home or self-care (01) | LOC: LAB.N 08:00 | PROVIDERS: ATTEND Internal Medicine | DX: I48.91 Unspecified atrial fibrillation (principal); Z79.01 Long term (current) use of anticoagulants | CPT/HCPCS: 85610 ==

== ENCOUNTER 2019-09-21 12:39 | Outpatient (CLI) | payer MEDICARE, OTHER | END 2019-09-21 12:40 | disposition critical access hospital (66) | LOC: EMS 12:39 | PROVIDERS: ATTEND Surgery | DX: R46.4 Slowness and poor responsiveness (principal); R51 Headache ==

== ENCOUNTER 2019-09-21 12:58 | Emergency (ER) | payer MEDICARE, OTHER ==
--- NOTE | 2019-09-21 13:19 | ED Physician Documentation ---
PD HPI FOCAL NEURO - Stated complaint Stated Complaint: POSS CVA - History obtained from History obtained from: EMS - History of Present Illness Timing - onset: Today (71-year-old woman presents by ambulance for altered mental status and possible strokelike symptoms. Reportedly at 12:10 PM today she became acutely altered, hypotensive with a left gaze preference. The patient is unable to provide any any history, she is very confused. Pressure was 90/60 in route with a normal blood sugar. Review of the chart shows that she has COPD with oxygen dependence, and had a very similar episode in June where she had a syncopal episode with some strokelike symptoms which resolved spontaneously with an otherwise negative work-up. Note made that she is on warfarin.) Review of Systems Unable to obtain: Confused PD PAST MEDICAL HISTORY - Past Medical History Cardiovascular: Hypertension, High cholesterol, [place], Atrial fibrillation, A rrhythmia, Other Respiratory: COPD Neuro: CVA, Headaches Endocrine/Autoimmune: None GI: GERD : None HEENT: Chronic vision loss, Chronic sinusitis Psych: None Musculoskeletal: None Derm: None - Past Surgical History Past Surgical History: Yes General: Appendectomy Ortho: Other /[employer]: Hysterectomy, Oophrectomy Cardiovascular: Coronary stent, Cardiac catheterization, Vascular surgery, Angioplasty HEENT: Tonsil/Adenoidectomy - Present Medications Home Medications: Ambulatory Orders Medication Instructions Recorded Confirmed Pantoprazole [Protonix] 40 mg PO QDAC 02/15/15 06/29/19 Simvastatin 40 mg PO QPM 02/15/15 06/29/19 Aspirin 81 mg PO DAILY 07/17/18 06/29/19 Warfarin Sodium 2.5 mg PO MOWEFR@0900 07/17/18 06/29/19 Nitroglycerin [Nitrostat] 0.4 mg SL Q5MIN PRN #30 tablet 07/18/18 06/29/19 Acetaminophen [Tylenol Extra 1,000 mg PO TID PRN 06/24/19 06/29/19 Strength] Albuterol Sulf [Ventolin Hfa 2 puffs INH QID 06/24/19 06/29/19 Inhaler] Ascorbic Acid [Vitamin C] 500 mg PO DAILY 06/24/19 06/29/19 Calcium Carbonate [Tums (Calcium 500 mg PO TID 06/24/19 06/29/19 Carbonate 500mg)] Ferrous Gluconate [Iron] 240 mg PO DAILYWM 06/24/19 06/29/19 Furosemide 10 mg PO DAILY 06/24/19 06/29/19 Magnesium Oxide [Mag Ox] 400 mg PO 0800 06/24/19 06/29/19 Warfarin Sodium 3 mg PO SUTUTHSA@0900 06/24/19 06/29/19 Metoprolol Succinate [Toprol Xl] 37.5 mg PO DAILY #20 tablet 06/26/19 06/29/19 oxyCODONE ER [OxyCONTIN] 10 mg PO Q12H 09/21/19 09/21/19 - Allergies Allergies/Adverse Reactions: Allergies Allergy/AdvReac Type Severity Reaction Status Date / Time amoxicillin trihydrate * Allergy Nausea Verified 03/08/15 14:05 [From Augmentin] potassium clavulanate * Allergy Nausea Verified 03/08/15 14:05 [From Augmentin] morphine AdvReac Unknown Verified 03/08/15 14:05 - Social History Does the pt smoke?: No Smoking Status: Current every day smoker Does the pt drink ETOH?: Yes Does the pt have substance abuse?: No - POLST Patient has POLST: No POLST Status: Full Code PD ED PE NORMAL - Vitals Vital signs reviewed: Yes - General General: Other (She is alert and oriented to person only. She cannot state that she is in the hospital, the month or year. She is unable to follow any commands.) - HEENT HEENT: PERRL, EOMI (She seems to have full extraocular movements, she is looking around in every direction, possibly with a slight gaze preference. That said since she is not following commands it is hard to tell completely but she does respond to threat on both sides. Symmetric face albeit she will not smile.) - Neck Neck: Supple, no meningeal sign, No bony TTP - Cardiac Cardiac: Other (Irregularly irregular without murmur) - Respiratory Respiratory: Other (Rhonchorous and nonlabored) - Abdomen Abdomen: Soft, Non tender - Derm Derm: Normal color, Warm and dry - Extremities Extremities: No edema, No calf tenderness / cord - Neuro Eye Opening: Spontaneous Motor: Localizes to Pain Verbal: Inappropriate GCS Score: 12 NIHSS - Time Time: 13:10 - Level of Consciousness Level of consciousness: (0) Alert, Keenly responsive LOC Questions: (2) Answers neither correct LOC Commands: (2)Performs none - Gaze Best Gaze: (1) Partial gaze palsy - Visual Visual: (0) No loss - Facial Palsy Facial Palsy: (0) Normal, symmetrical movement - Motor Arms (both separate) Motor Arm (right): (3) No effort against gravity (But withdraws to painful stimulus with good strength) Motor Arm (left): (3) No effort against gravity (But withdraws to painful s timulus with good strength) - Motor Legs (both separate) Motor Leg (right): (3) No effort against gravity (But withdraws to painful stimulus with good strength) Motor Leg (left): (3) No effort against gravity (But withdraws to painful stimulus with good strength) - Limb Ataxia Limb Ataxia: (0) Absent - Sensory Sensory: (0) Normal - Best Language Best Language: (0) No aphasia - Dysarthria Dysarthria: (0) Normal - Extinction and Inattention (formally neg Extinction and inattention: (0) No abnormality - Total Score/Results Total Score/Result: 17 Results - Vitals Vitals: Vital Signs - 24 hr 09/21/19 09/21/19 09/21/19 13:01 13:30 14:30 Temperature 35.5 C L Heart Rate 93 96 93 Respiratory 20 17 Rate Blood Pressure 137/107 H 146/84 H 152/99 H O2 Saturation 99 98 97 09/21/19 09/21/19 09/21/19 15:09 15:30 16:30 Temperature Heart Rate 94 97 101 H Respiratory 18 17 17 Rate Blood Pressure 169/97 H 170/95 H 171/136 H O2 Saturation 96 94 95 Oxygen O2 Source Nasal cannula - EKG (time done) 1324 Rate: Rate (enter#) (93) Rhythm: Atrial fibrillation Velpen: Normal Intervals: Prolonged QT QRS: LVH Ischemia: Normal ST segments Computer interpretation: Agree with computer - Labs Labs: Laboratory Tests 09/21/19 09/21/19 09/21/19 13:26 13:30 13:30 WBC 10.3 RBC 4.43 Hgb 13.3 Hct 41.3 MCV 93.2 MCH 30.0 MCHC 32.2 RDW 14.2 Plt Count 215 MPV 9.8 Neut # (Auto) 7.5 H Lymph # (Auto) 1.9 [place] # (Auto) 0.7 Eos # (Auto) 0.2 Baso # (Auto) 0.1 Absolute Nucleated RBC 0.00 Nucleated RBC % 0.0 PT 32.2 H INR 3.0 H Whole Blood INR 2.6 H Sodium Potassium Chloride Carbon Dioxide Anion Gap BUN Creatinine Estimated GFR (MDRD) Glucose Calcium Total Bilirubin AST ALT Alkaline Phosphatase Total Protein Albumin Globulin Albumin/Globulin Ratio Lipase Urine Color Urine Clarity Urine pH Ur Specific [place] Urine Protein Urine Glucose (UA) Urine Ketones Urine Occult Blood Urine Nitrite Urine Bilirubin Urine Urobilinogen Ur Leukocyte Esterase Urine RBC Urine WBC Ur Squamous Epith Cells Urine Bacteria Ur Microscopic Review Urine Culture Comments 09/21/19 09/21/19 13:30 13:53 WBC RBC Hgb Hct MCV MCH MCHC RDW Plt Count MPV Neut # (Auto) Lymph # (Auto) [place] # (Auto) Eos # (Auto) Baso # (Auto) Absolute Nucleated RBC Nucleated RBC % PT INR Whole Blood INR Sodium 140 Potassium 3.7 Chloride 100 L Carbon Dioxide 31 Anion Gap 9.0 BUN 14 Creatinine 1.0 Estimated GFR (MDRD) 54 L Glucose 149 H Calcium 9.1 Total Bilirubin 0.6 AST 17 ALT 12 Alkaline Phosphatase 60 Total Protein 6.9 Albumin 3.8 Globulin 3.1 Albumin/Globulin Ratio 1.2 Lipase 25 Urine Color YELLOW Urine Clarity HAZY Urine pH 7.0 Ur Specific [place] 1.010 Urine Protein NEGATIVE Urine Glucose (UA) NEGATIVE Urine Ketones NEGATIVE Urine Occult Blood TRACE-INTA Urine Nitrite POSITIVE H Urine Bilirubin NEGATIVE Urine Urobilinogen 0.2 (NORMAL) Ur Leukocyte Esterase SMALL H Urine RBC None Seen Urine WBC 11-25 H Ur Squamous Epith Cells NONE SEEN Urine Bacteria Moderate H Ur Microscopic Review INDICATED Urine Culture Comments INDICATED PD MEDICAL DECISION MAKING - ED course ED course: 79-year-old woman presents with acute possibly strokelike symptoms but also kind of a general delirium and inability to follow questions associated with modest hypotension. Review of the chart shows a very similar presentation in June of this year with complete recovery. She is therapeutically anticoagulated with an INR 2.6. Case was discussed by phone with Viky Gray, stroke neurologist at [facility] and agrees that she is not a TPA candidate and I will call her back at [phone] if angiography is positive but my prelim view of the angiography is that it is negative albeit with quite a bit of motion artifact. On reexamination at 1350 6 PM she is following simple commands now and seems to have symmetric gaze. After the reads on the angiography I spoke with Dr. Gray again. She recommended calling vascular surgery in [place], she had a prior carotid endarterectomy and that is where it was done. They were paged at 3:30 PM. In the interim, she was rechecked about that time, she was much more awake and alert. Still a little confused but following commands in all 4 extremities. Spoke with Jaqueline Herrera With vascular surgery at [place] at 1608. Defers to the hospitalist here for admission, no changes in anticoagulation until then. Accepted by Dr Soler, [place] Hospitalist at 1620; agreed with olegario For the UTI noting that her allergy to Augmentin was reportedly nausea. Departure - Departure Disposition: 02 Transfer Acute Care Hosp Clinical Impression: History of CVA (cerebrovascular accident), History of coronary artery stent placement, Vascular occlusion CAD (coronary artery disease) Qualifiers: Coronary Disease-Associated Artery/Lesion type: unspecified vessel or lesion type [place] vs. transplanted heart: [place] heart Associated angina: without angina Qualified Code(s): I25.10 - Atherosclerotic heart disease of [place] coronary artery without angina pectoris Altered mental status Qualifiers: Altered mental status type: delirium Qualified Code(s): R41.0 - Disorientation, unspecified Condition: Serious Discharge Date/Time: 09/21/19 17:24
[2019-09-21 13:35] LABS: BASOPHILS # (AUTO) 0.1 10^3/uL (0.0-0.1); BASOPHILS % (AUTO) 0.6 %; EOSINOPHILS # (AUTO) 0.2 10^3/uL (0.0-0.7); EOSINOPHILS % (AUTO) 1.7 %; HGB - HEMOGLOBIN 13.3 g/dL (12.0-16.0); LYMPHOCYTES # (AUTO) 1.9 10^3/uL (1.5-3.5); LYMPHOCYTES % (AUTO) 18.3 %; MEAN CORPUSCULAR HGB CONC 32.2 g/dL (32.0-36.0); MEAN CORPUSCULAR VOLUME 93.2 fL (81.0-99.0); MEAN PLATELET VOLUME 9.8 fL (7.9-10.8); MONOCYTES # (AUTO) 0.7 10^3/uL (0.0-1.0); MONOCYTES % (AUTO) 6.3 %; NEUTROPHILS # (AUTO) 7.5 10^3/uL (1.5-6.6); NEUTROPHILS % (AUTO) 72.6 %; PLT - PLATELET COUNT 215 10^3/uL (130-450); RED BLOOD COUNT 4.43 10^6/uL (4.20-5.40); RED CELL DISTRIBUTION WIDTH 14.2 % (12.0-15.0); WHITE BLOOD COUNT 10.3 x10^3/uL (4.8-10.8)
[2019-09-21] MEDS ORDERED: IOVERSOL 320 100 ML VIAL IVP ONE ×2 (13:42→15:46)
--- NOTE | 2019-09-21 13:43 | CT Report ---
Reason: L gaze pref, altered Procedure Date: 09/21/2019 Accession Number: [id number] / [id number] Procedure: CT - Head W/O Stroke Protocol CPT Code: Final Report FULL RESULT: CT HEAD WITHOUT CONTRAST INDICATION: 79-year-old female. Altered mental status. Left gaze preference. Concern for acute CVA. TECHNIQUE: Sequential 5 mm axial images were obtained through the brain. In accordance with CT protocol optimization, one or more of the following dose reduction techniques were utilized for this exam: automated exposure control, adjustment of mA and/or KV based on patient size, or use of iterative reconstructive technique. COMPARISON: 06/28/2019. FINDINGS: Again demonstrated is at least moderate third/lateral ventriculomegaly, unchanged. Again demonstrated is significant discordance between the degree of the ventriculomegaly and the amount of cortical sulcal dilatation. The sulci at the vertex are small and appear effaced bilaterally. Both sylvian fissures are dilated. These findings suggest the possibility of normal pressure hydrocephalus. There is a moderate amount of white matter disease in the supratentorial brain, similar to the prior study. The attenuation of the cortex and white matter is otherwise unremarkable. There is no intracranial hemorrhage or abnormal extra-axial fluid collection. No mass-effect or midline shift. There is calcified atherosclerotic plaque in the carotid siphons bilaterally. The skull and skull base appear intact. The middle ear cavities and imaged mastoid air cells appear clear. A mucous retention cyst is identified posteriorly in the right maxillary sinus. The imaged paranasal sinuses are otherwise essentially clear. Again demonstrated are multiple surgical clips in the upper right carotid space, consistent with the sequela of previous surgery. IMPRESSION: 1. There are chronic findings in the brain, as described, essentially stable when compared to a previous head CT of 06/28/2019. 2. No acute intracranial pathology is demonstrated. In particular, there is no intracranial hemorrhage and there is no CT evidence of an acute large vessel territory cortical infarction. However, it should be noted that early and small infarctions can be missed on CT. Therefore, consider further evaluation with MRI as clinically warranted. The critical test notification system was initiated by Dr. Luis Cline at 01:36 PM on 09/21/2019. The above critical test findings were discussed with Dr. Jovi Jenkins by Dr. Luis Cline at 01:39 PM on 09/21/2019.
[2019-09-21 13:48] LABS: BILIRUBIN,TOTAL 0.6 mg/dL (0.2-1.0); CALCIUM 9.1 mg/dL (8.5-10.3)
[2019-09-21 13:49] LABS: ALBUMIN 3.8 g/dL (3.2-5.5); ALBUMIN/GLOBULIN RATIO 1.2 (1.0-2.2); TOTAL PROTEIN 6.9 g/dL (6.7-8.2)
[2019-09-21 13:52] LABS: PT - PROTHROMBIN TIME 32.2 secs (9.9-12.6)
[2019-09-21 14:03] LABS: BILIRUBIN,URINE NEGATIVE (NEGATIVE); GLUCOSE, URINE (UA) NEGATIVE (NEGATIVE); KETONES,URINE (UA) NEGATIVE (NEGATIVE); LEUKOCYTE ESTERASE, URINE SMALL (NEGATIVE); NITRITE,URINE POSITIVE (NEGATIVE); OCCULT BLOOD,URINE TRACE-INTA (NEGATIVE); PROTEIN,URINE NEGATIVE (NEGATIVE); UROBILINOGEN,URINE 0.2 (NORMAL) E.U./dL (NORMAL)
[2019-09-21 14:05] LABS: CLARITY,URINE HAZY (CLEAR)
[2019-09-21 14:12] LABS: RBC,URINE None Seen /HPF (0-5)
[2019-09-21 14:13] LABS: BACTERIA,URINE Moderate /HPF (None Seen); SQUAMOUS EPITHELIAL CELL,UR NONE SEEN (<= Few)
--- NOTE | 2019-09-21 15:06 | CT Report ---
Reason: L gaze pref, altered Procedure Date: 09/21/2019 Accession Number: [id number] / [id number] Procedure: CT - ANGIO HEAD W/WO CPT Code: Final Report FULL RESULT: CT ANGIOGRAM HEAD AND POSTCONTRAST HEAD CT INDICATION: 79-year-old female. Left gaze preference. Altered mental status. Concern for acute CVA. TECHNIQUE: CT angiogram head 80 cc of Optiray 320 contrast were injected at a rapid rate through a large bore, antecubital intravenous catheter. The head was scanned helically during arterial phase. Data was reconstructed into 0.5 mm axial images. In addition, MIP reconstructions have been generated in multiple projections. Postcontrast head CT Sequential 5 mm axial images were obtained through the brain following the CT angiogram. COMPARISON: None. FINDINGS: CT angiogram head According to the medical technologist hematology the patient was restrained for this examination, however, the patient did move during the CTA study and there is considerable image degradation from patient motion that severely limits the diagnostic quality of this study. Anterior circulation: There is calcified atherosclerotic plaque scattered throughout the carotid siphons. There appears to be mild to moderate associated, ICA narrowing. No obvious hemodynamically significant stenosis is identified, however, evaluation is very limited. The A1 segments of the anterior cerebral arteries are patent. There appears to be an anterior communicating artery. There is filling of the A2 distal MICHELLE branches. No obvious MICHELLE branch occlusion is demonstrated, however, evaluation is very limited. Grossly the M1 segments of the middle cerebral arteries are patent. There appears to be filling of M2 branches of both MCAs. Posterior circulation: The vertebral arteries and posterior inferior cerebellar arteries appear to be patent. Grossly no aneurysm is seen at either PICA origin. The basilar artery, superior cerebellar arteries and main branches of the posterior cerebral arteries are patent. Patent posterior communicating arteries are demonstrated bilaterally. No aneurysms are seen arising from the basilar artery trunk or apex. Postcontrast head CT No enhancing space-occupying mass lesion is demonstrated. There appears to be normal intravascular contrast enhancement in the dural venous sinuses and deep venous structures. IMPRESSION: CT angiogram head 1. This study is significantly compromised. There is extensive image degradation from patient motion. 2. Grossly the main intracranial arteries appear patent. No obvious main branch occlusion is demonstrated. However, assessment beyond this level is extremely limited. Consider obtaining a repeat examination, as clinically warranted. Postcontrast head CT No enhancing space-occupying mass lesion is demonstrated.
--- NOTE | 2019-09-21 15:06 | CT Report ---
Reason: L gaze pref, altered Procedure Date: 09/21/2019 Accession Number: [id number] / [id number] Procedure: CT - ANGIO NECK W CPT Code: Final Report FULL RESULT: EXAM: CT ANGIOGRAM NECK EXAM DATE: 09/21/2019 01:26 PM. CLINICAL HISTORY: Left gaze pref, altered. COMPARISON: HEAD W/O STROKE PROTOCOL 09/21/2019 1:09 PM. TECHNIQUE: Routine axial helical imaging was performed from the skull base through the aortic arch. Reconstructions: Routine multiplanar 3D MIP reconstructions. IV Contrast: Optiray 320 80 mL. Evaluation of arterial stenosis is based on a NASCET method of measurement. In accordance with CT protocol optimization, one or more of the following dose reduction techniques were utilized for this exam: automated exposure control, adjustment of mA and/or KV based on patient size, or use of iterative reconstructive technique. FINDINGS: There is motion degradation on the study which significantly limits it. Right Carotid: The right cervical ICA is patent. There is atherosclerotic plaque in the distal CCA and proximal cervical ICA without an obvious flow-limiting stenosis present. Atherosclerotic plaque is seen throughout the CCA. Left Carotid: Atherosclerotic plaque is seen throughout the CCA as well as its bifurcation extending into the proximal ECA and ICA. A greater than 70% stenosis at the origin of the cervical ICA is not excluded. Cervical ICA is patent. Vertebrals: The cervical vertebral artery on the left is patent. No definite enhancement is seen in the proximal left subclavian artery. The V1 segment and much of the V2 segment of the right vertebral are poorly visualized. Enhancement is seen in the distal V2 and V3 segment of the cervical right vertebral artery. Intracranial Circulation: See CT angiogram head performed today and dictated under separate cover. Great Vessel Origins: Extensive atherosclerotic plaque is seen in the transverse thoracic aorta. No definite enhancement is seen in the origin and most proximal aspect of the left subclavian artery. Atherosclerotic plaque is seen involving the brachiocephalic artery as well as each subclavian artery. Other: The thyroid gland is prominent. There might be less than 1 cm hypoenhancing nodule anteriorly left thyroid lobe. No bulky lymphadenopathy is seen in the visualized upper mediastinum. No obvious bulky lymphadenopathy is seen in the neck. No mass is evident in either submandibular gland or parotid gland. No mass is seen in the nasopharynx. Extensive centrilobular emphysema is seen in each visualized upper lung. Degenerative disk disease and osteophyte formation are seen at C6-C7. IMPRESSION: 1. The study is significantly limited by patient motion degradation. 2. A greater than 70% stenosis involving the proximal cervical ICA on the left is not excluded. Carotid ultrasound would be of value. 3. Suspect occlusion of much of the cervical ICA on the right with reconstitution of the distal V2 and V3 segment. 4. 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 The left vertebral artery is patent. Carotid ultrasound could assess for retrograde flow in the left vertebral artery. 5. Centrilobular emphysema is present bilaterally. 6. Possible subtle small thyroid nodule on the left. RADIA
[2019-09-21] MEDS ORDERED: ASPIRIN 325 MG TABLET PO STA (15:46)
[2019-09-21] MEDS ORDERED: ACETAMINOPHEN 325 MG TABLET PO STA (15:46)
[2019-09-21] MEDS ORDERED: cefTRIAXone 1 GM in SODIUM CHLORIDE 0.9% MINIBAG 100 ML IV STA (16:19)
[2019-09-21 16:46] VITALS: BP 171/136
== END 2019-09-21 17:24 | disposition short-term general hospital (02) ==
LOC: EDBD → ED 12:58
DX: R41.0 Disorientation, unspecified (principal); I95.9 Hypotension, unspecified; I25.10 Atherosclerotic heart disease of native coronary artery without angina pectoris; I10 Essential (primary) hypertension; Z95.5 Presence of coronary angioplasty implant and graft; Z99.81 Dependence on supplemental oxygen; Z79.01 Long term (current) use of anticoagulants
CPT/HCPCS: 36415; 70450; 70496; 70498; 80053; 81001; 83690; 85025; 85610; 87077; 87086; 87181; 93005; 96365; 99285; A9270; Q9967; 81003

== ENCOUNTER 2019-09-21 17:36 | Outpatient (CLI) | payer MEDICARE, OTHER | END 2019-09-21 17:37 | disposition short-term general hospital (02) | LOC: EMS 17:36 | PROVIDERS: ATTEND Surgery | DX: I65.22 Occlusion and stenosis of left carotid artery (principal) ==

== ENCOUNTER 2019-10-16 00:24 | Emergency (ER) | payer MEDICARE, OTHER ==
--- NOTE | 2019-10-16 01:41 | ED Physician Documentation ---
PD HPI Fall - Stated complaint Stated Complaint: BACK PX - Chief complaint Chief Complaint: Abd Pain - History obtained from History obtained from: Patient, Family - History of Present Illness Mechanism of injury: Tripped Fall distance: Standing position Where injury occurred: Home Timing - onset: Today Injury(ies) location: Back Quality of pain: Pain Associated symptoms: No: LOC, AMS, Amnesia Symptoms improve with: Rest Worsens with: Movement, Palpation Contributing factors: Anticoagulated. 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 She did not injure her head and she did not have loss of consciousness. She fell against a commode in the bathroom and she has pain in the lateral posterior aspect of the left chest. She has pain with movement and with respiration. Review of Systems Constitutional: denies: Fever Eyes: denies: Decreased vision Ears: denies: Ear pain Nose: denies: Congestion Throat: denies: Sore throat Cardiac: reports: Chest pain / pressure. denies: Palpitations, Pedal edema, Calf pain Respiratory: denies: Dyspnea, Cough GI: denies: Abdominal Pain, Nausea, Vomiting : denies: Dysuria, Frequency Skin: denies: Rash Musculoskeletal: reports: Back pain. 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: Hysterectomy, Oophrectomy Cardiovascular: Coronary stent, Cardiac catheterization, Vascular surgery, Angioplasty HEENT: Tonsil/Adenoidectomy - Present Medications Home Medications: Ambulatory Orders Medication Instructions Recorded Confirmed Pantoprazole [Protonix] 40 mg PO QDAC 02/15/15 10/16/19 Simvastatin 40 mg PO QPM 02/15/15 10/16/19 Aspirin 81 mg PO DAILY 07/17/18 10/16/19 Nitroglycerin [Nitrostat] 0.4 mg SL Q5MIN PRN #30 tablet 07/18/18 10/16/19 Magnesium Oxide [Mag Ox] 400 mg PO 0800 06/24/19 10/16/19 Apixaban [Eliquis] 5 mg PO BID 10/16/19 10/16/19 Hydrocodone/Acetaminophen 1 - 2 each PO Q6H PRN #14 tablet 10/16/19 [Hydrocodon-Acetaminophen 5-325] Metoprolol Succinate [Toprol Xl] 100 mg PO BID 10/16/19 10/16/19 Sulfamethox/Trimeth 800/160 1 each PO BID #14 tablet 10/16/19 [Bactrim Ds 800/160] amLODIPine [Norvasc] 5 mg PO DAILY 10/16/19 10/16/19 - Allergies Allergies/Adverse Reactions: Allergies Allergy/AdvReac Type Severity Reaction Status Date / Time amoxicillin trihydrate * Allergy Nausea Verified 10/16/19 00:40 [From Augmentin] potassium clavulanate * Allergy Nausea Verified 10/16/19 00:40 [From Augmentin] morphine AdvReac Unknown Verified 10/16/19 00:40 - Social History Does the pt smoke?: No Smoking Status: Never smoker Does the pt drink ETOH?: Yes Does the pt have substance abuse?: No - POLST Patient has POLST: No POLST Status: Full Code PD ED PE NORMAL - Vitals Vital signs reviewed: Yes (tachypneic and hyperensive ) - General General: Alert and oriented X 3, Well developed/nourished, Other (The patient appears to be in pain with any movement gasping when she moves) - HEENT HEENT: Atraumatic, PERRL, EOMI - Neck Neck: Supple, no meningeal sign, No bony TTP - Cardiac Cardiac: No murmur, Other (irregularly irregular) - Respiratory Respiratory: Other (diminished breath sounds. The patient is wearing a defibrillator vest. There is marked tenderness to the left lateral posterior chest wall. There is no crepitnace or obvious deformity ) - Abdomen Abdomen: Soft, Non distended - Derm Derm: Normal color, Warm and dry, No rash - Extremities Extremities: No deformity, No edema - Neuro Neuro: Alert and oriented X 3, boxcar weigher 2-12 intact, No motor deficit, No sensory deficit, Normal speech Eye Opening: Spontaneous Motor: Obeys Commands Verbal: Oriented GCS Score: 15 - Psych Psych: Normal mood, Normal affect Results - Vitals Vitals: Vital Signs - 24 hr 10/16/19 10/16/19 10/16/19 00:25 01:09 01:48 Temperature 36.6 C Heart Rate 82 77 84 Respiratory 27 H 20 18 Rate Blood Pressure 184/73 H 172/85 H 154/86 H O2 Saturation 95 97 96 10/16/19 10/16/19 02:41 03:18 Temperature Heart Rate 83 80 Respiratory 24 22 Rate Blood Pressure 172/78 H 149/76 H O2 Saturation 95 95 Oxygen O2 Source Room air - EKG (time done) 0102 Rate: Rate (enter#) (79) Rhythm: Atrial fibrillation QRS: LVH Ischemia: ST depression (V4-5 only ) Compare to prior EKG: Changed from prior EKG (SPT 09-21-2019 pacer spikes are present and lateral ST depression is present. morphology of QRS has not changed significantly ) Computer interpretation: Disagree with computer (I believe the rhythm is afib, there is criteria for LVH) - Labs Labs: Laboratory Tests 10/16/19 10/16/19 10/16/19 02:15 02:15 02:45 WBC 11.7 H RBC 3.90 L Hgb 11.2 L Hct 37.5 MCV 96.2 MCH 28.7 MCHC 29.9 L RDW 15.8 H Plt Count 431 MPV 9.2 Neut # (Auto) 8.5 H Lymph # (Auto) 1.8 [place] # (Auto) 0.8 Eos # (Auto) 0.5 Baso # (Auto) 0.1 Absolute Nucleated RBC 0.00 Nucleated RBC % 0.0 Sodium 142 Potassium 4.0 Chloride 103 Carbon Dioxide 30 Anion Gap 9.0 BUN 26 H Creatinine 0.9 Estimated GFR (MDRD) 61 L Glucose 128 H Calcium 9.5 Total Bilirubin 1.0 AST 18 ALT 12 Alkaline Phosphatase 63 Total Protein 7.4 Albumin 3.9 Globulin 3.5 Albumin/Globulin Ratio 1.1 Lipase 25 Urine Color YELLOW Urine Clarity CLEAR Urine pH 6.5 Ur Specific [place] 1.015 Urine Protein NEGATIVE Urine Glucose (UA) NEGATIVE Urine Ketones NEGATIVE Urine Occult Blood TRACE-INTA Urine Nitrite NEGATIVE Urine Bilirubin NEGATIVE Urine Urobilinogen 1 (NORMAL) Ur Leukocyte Esterase MODERATE H Urine RBC 0-5 Urine WBC 11-25 H Ur Squamous Epith Cells FEW Squamous Urine Bacteria Moderate H Ur Microscopic Review INDICATED Urine Culture Comments INDICATED - Rads (name of study) CT chest with Radiology: Prelim report reviewed (Impression: Emphysema.), EMP read indepedently, See rad report Procedures - FAST exam (time) 0155 FAST exam: No: Free fluid RUQ, Free fluid LUQ - IVC sono (time) 0150 Bedside IVC sono: IVC measures (cm) (1.32), IVC collapsed c insp (cm) (0.66), Dehydration (minimal) PD MEDICAL DECISION MAKING - ED course Complexity details: reviewed old records, reviewed results, re-evaluated ashley ent, considered differential, d/w patient, d/w family ED course: 79-year-old female with a complicated past medical history is now on 3 blood thinners and she has had a ground-level fall against a commode injuring her chest wall posteriorly. CT scanning does not demonstrate any evidence of fracture or hematoma or bleeding into the chest or abdomen. She has relief with some Toradol 30 mg intravenously and she is again found to have urinary tract infection on evaluation. Her last urine was a sensitive E. coli. 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 This has not been repaired as yet. She is given a dose of rocephin. She is provided pain medication for travel to home and we will provide a limited supply for treatment of chest wall contusion. Departure - Departure Disposition: Home, Self Care Clinical Impression: UTI (urinary tract infection) Qualifiers: Urinary tract infection type: acute cystitis Hematuria presence: without hematuria Qualified Code(s): N30.00 - Acute cystitis without hematuria Contusion of chest wall Qualifiers: Encounter type: initial encounter Laterality: left Qualified Code(s): S20.212A - Contusion of left front wall of thorax, initial encounter Condition: Stable Instructions: ED Contusion Chest Wall, ED UTI Cystitis Female Follow-Up: Bisi Rowe MD [Primary Care Provider] - Prescriptions: Hydrocodone/Acetaminophen [Hydrocodon-Acetaminophen 5-325] 1 - 2 each PO Q6H PRN #14 tablet PRN Reason: pain Sulfamethox/Trimeth 800/160 [Bactrim Ds 800/160] 1 each PO BID #14 tablet
[2019-10-16] MEDS ORDERED: KETOROLAC 30 MG/ML VIAL IVP STA (02:02)
[2019-10-16] MEDS ORDERED: IOVERSOL 320 100 ML VIAL IVP ONE ×2 (02:14→03:13)
[2019-10-16 02:19] LABS: BASOPHILS # (AUTO) 0.1 10^3/uL (0.0-0.1); BASOPHILS % (AUTO) 0.6 %; EOSINOPHILS # (AUTO) 0.5 10^3/uL (0.0-0.7); EOSINOPHILS % (AUTO) 4.3 %; HGB - HEMOGLOBIN 11.2 g/dL (12.0-16.0); LYMPHOCYTES # (AUTO) 1.8 10^3/uL (1.5-3.5); LYMPHOCYTES % (AUTO) 15.7 %; MEAN CORPUSCULAR HEMOGLOBIN 28.7 pg (27.0-31.0); MEAN CORPUSCULAR HGB CONC 29.9 g/dL (32.0-36.0); MEAN CORPUSCULAR VOLUME 96.2 fL (81.0-99.0); MEAN PLATELET VOLUME 9.2 fL (7.9-10.8); MONOCYTES # (AUTO) 0.8 10^3/uL (0.0-1.0); MONOCYTES % (AUTO) 6.8 %; NEUTROPHILS # (AUTO) 8.5 10^3/uL (1.5-6.6); NEUTROPHILS % (AUTO) 72.2 %; PLT - PLATELET COUNT 431 10^3/uL (130-450); RED CELL DISTRIBUTION WIDTH 15.8 % (12.0-15.0); WHITE BLOOD COUNT 11.7 x10^3/uL (4.8-10.8)
[2019-10-16 02:40] LABS: ALBUMIN 3.9 g/dL (3.2-5.5); ALBUMIN/GLOBULIN RATIO 1.1 (1.0-2.2); CALCIUM 9.5 mg/dL (8.5-10.3); CREATININE 0.9 mg/dL (0.4-1.0); TOTAL PROTEIN 7.4 g/dL (6.7-8.2)
[2019-10-16 02:51] LABS: BILIRUBIN,URINE NEGATIVE (NEGATIVE); GLUCOSE, URINE (UA) NEGATIVE (NEGATIVE); KETONES,URINE (UA) NEGATIVE (NEGATIVE); LEUKOCYTE ESTERASE, URINE MODERATE (NEGATIVE); NITRITE,URINE NEGATIVE (NEGATIVE); OCCULT BLOOD,URINE TRACE-INTA (NEGATIVE); PH,URINE 6.5 PH (5.0-7.5); PROTEIN,URINE NEGATIVE (NEGATIVE); UROBILINOGEN,URINE 1 (NORMAL) E.U./dL (NORMAL)
[2019-10-16 02:53] LABS: CLARITY,URINE CLEAR (CLEAR)
[2019-10-16 03:02] LABS: BACTERIA,URINE Moderate /HPF (None Seen); RBC,URINE 0-5 /HPF (0-5); SQUAMOUS EPITHELIAL CELL,UR FEW Squamous (<= Few)
[2019-10-16] MEDS ORDERED: cefTRIAXone 1 GM in SODIUM CHLORIDE 0.9% MINIBAG 100 ML IV STA (03:21)
--- NOTE | 2019-10-16 03:37 | CT Report ---
Reason: left lower chest contusion Procedure Date: 10/16/2019 Accession Number: [id number] / [id number] Procedure: CT - CHEST W CPT Code: Final Report FULL RESULT: EXAM: CT CHEST EXAM DATE: 10/16/2019 03:15 AM. CLINICAL HISTORY: Left lower chest contusion. COMPARISONS: None. TECHNIQUE: Routine helical CT imaging was performed through the chest. IV contrast: 80 mL Optiray 320. Reconstructions: Coronal and sagittal. In accordance with CT protocol optimization, one or more of the following dose reduction techniques were utilized for this exam: automated exposure control, adjustment of mA and/or KV based on patient size, or use of iterative reconstructive technique. FINDINGS: Lungs/Pleura: Emphysema. Dependent atelectasis. No focal infiltrate, effusion, or pneumothorax. Mediastinum: Atherosclerotic calcifications. No cardiomegaly or adenopathy. Bones: Degenerative changes. Visualized Abdomen: Cholelithiasis. Other: Right axillary bypass graft, patent. IMPRESSION: Emphysema. RADIA
[2019-10-16] MEDS ORDERED: ONDANSETRON 4 MG/2 ML VIAL IVP STA (04:11)
[2019-10-16] MEDS ORDERED: HYDROmorphone 1 MG/ML CARPUJECT IVP STA (04:11)
[2019-10-16 04:59] VITALS: BP 134/80
== END 2019-10-16 04:45 | disposition home or self-care (01) ==
LOC: ED 00:24
DX: S20.212A Contusion of left front wall of thorax, initial encounter (principal); W01.198A Fall on same level from slipping, tripping and stumbling with subsequent striking against other object, initial encounter; Y92.002 Bathroom of unspecified non-institutional (private) residence as the place of occurrence of the external cause; N30.00 Acute cystitis without hematuria; N82.2 Fistula of vagina to small intestine; E86.0 Dehydration; I48.91 Unspecified atrial fibrillation; Z79.01 Long term (current) use of anticoagulants; Z79.02 Long term (current) use of antithrombotics/antiplatelets; Z79.82 Long term (current) use of aspirin; I10 Essential (primary) hypertension; Z86.73 Personal history of transient ischemic attack (TIA), and cerebral infarction without residual deficits; J43.9 Emphysema, unspecified; K80.20 Calculus of gallbladder without cholecystitis without obstruction
CPT/HCPCS: 36415; 71260; 80053; 81001; 83690; 85025; 87077; 87086; 87181; 93005; 96365; 96375; 99284; 99285; J1170; Q9967; 81003

== ENCOUNTER 2019-11-26 09:53 | Outpatient (CLI) | payer MEDICARE, OTHER | END 2019-11-26 09:54 | disposition home or self-care (01) | LOC: DI 09:53 | PROVIDERS: ATTEND Internal Medicine Cardiovascular Disease | DX: I50.9 Heart failure, unspecified (principal); I51.7 Cardiomegaly | CPT/HCPCS: 93306 ==

== ENCOUNTER 2019-12-21 11:56 | Outpatient (CLI) | payer MEDICARE, OTHER | END 2019-12-21 11:57 | disposition critical access hospital (66) | LOC: EMS 11:56 | PROVIDERS: ATTEND Surgery | DX: R55 Syncope and collapse (principal) | CPT/HCPCS: A0425; A0429 ==

== ENCOUNTER 2019-12-21 12:21 | Emergency (ER) | payer MEDICARE, OTHER ==
--- NOTE | 2019-12-21 12:55 | ED Physician Documentation ---
History of Present Illness - Stated complaint Stated Complaint: SYNCOPE - Chief complaint Chief Complaint: Neuro - Additonal information Additional information: This is a 79-year-old female with history of coronary artery disease, VT, past s yncopal episodes, who presents with episode of syncope. She was at physical therapy when she states that she felt poorly (nauseated and not right), and then she suddenly passed out. Staff at the physical therapy center were at her side, and caught her and lowered her to the ground. She was unconscious about 1 minute, she had a weak pulse. She was not on the monitor, it is unclear what rhythm she was in. After she woke up she was confused for around 10 minutes. There was no seizure activity. She denies any chest pain, no shortness of breath over her baseline. She does wear oxygen at baseline. She recounts that she used to have these episodes of syncope, and was found that she was in an abnormal heart rhythm that caused these, she had stents placed at [facility], and this seemed to help the problem, and just a week or 2 ago she stopped wearing a defibrillator vest. She follows Dr. Bashir of cardiology. Review of Systems Constitutional: denies: Fever Nose: denies: Rhinorrhea / runny nose Cardiac: denies: Chest pain / pressure Respiratory: denies: Dyspnea GI: reports: Nausea. 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 Cardiovascular: Coronary stent, Cardiac catheterization, Vascular surgery, Angioplasty HEENT: Tonsil/Adenoidectomy - Present Medications Home Medications: Ambulatory Orders Medication Instructions Recorded Confirmed Pantoprazole [Protonix] 40 mg PO QDAC 02/15/15 10/16/19 Simvastatin 40 mg PO QPM 02/15/15 10/16/19 Aspirin 81 mg PO DAILY 07/17/18 10/16/19 Nitroglycerin [Nitrostat] 0.4 mg SL Q5MIN PRN #30 tablet 07/18/18 10/16/19 Magnesium Oxide [Mag Ox] 400 mg PO 0800 06/24/19 10/16/19 Apixaban [Eliquis] 5 mg PO BID 10/16/19 10/16/19 Hydrocodone/Acetaminophen 1 - 2 each PO Q6H PRN #14 tablet 10/16/19 [Hydrocodon-Acetaminophen 5-325] Metoprolol Succinate [Toprol Xl] 100 mg PO BID 10/16/19 10/16/19 Sulfamethox/Trimeth 800/160 1 each PO BID #14 tablet 10/16/19 [Bactrim Ds 800/160] amLODIPine [Norvasc] 5 mg PO DAILY 10/16/19 10/16/19 - Allergies Allergies/Adverse Reactions: Allergies Allergy/AdvReac Type Severity Reaction Status Date / Time amoxicillin trihydrate * Allergy Nausea Verified 12/21/19 12:28 [From Augmentin] potassium clavulanate * Allergy Nausea Verified 12/21/19 12:28 [From Augmentin] morphine AdvReac Unknown Verified 12/21/19 12:28 - Social History Does the pt smoke?: No Smoking Status: Never smoker Does the pt drink ETOH?: Yes Does the pt have substance abuse?: No - POLST Patient has POLST: No POLST Status: Full Code PD ED PE NORMAL - Vitals Vital signs reviewed: Yes - General General: Alert and oriented X 3, No acute distress - HEENT HEENT: PERRL, Other (NC in place) - Neck Neck: Supple, no meningeal sign - Cardiac Cardiac: RRR - Respiratory Respiratory: No respiratory distress, Clear bilaterally - Abdomen Abdomen: Normal bowel sounds, Soft, Non tender, Non distended - Derm Derm: Warm and dry - Extremities Extremities: No deformity - Neuro Neuro: Alert and oriented X 3, gage designer 2-12 intact, No motor deficit, No sensory deficit, Normal speech - Psych Psych: Normal mood, Normal affect Results - Vitals Vitals: Vital Signs - 24 hr 12/21/19 12/21/19 12/21/19 14:37 15:03 15:57 Temperature Heart Rate 108 H 89 88 Respiratory 18 20 16 Rate Blood Pressure 128/58 L 126/65 138/86 H O2 Saturation 92 96 98 12/21/19 12/21/19 16:02 18:00 Temperature 36.8 C Heart Rate 111 H 87 Respiratory 14 21 Rate Blood Pressure 125/112 H 136/100 H O2 Saturation 96 97 Oxygen O2 Source Nasal cannula - EKG (time done) 12:45 Other comments: Other comments (Rate 89, rhythm atrial fibrillation. There is LVH with secondary repolarization abnormality. No ST segment elevation.) - Labs Labs: Microbiology 12/21/19 14:40 Urine Culture - Preliminary Urine,Clean Catch Laboratory Tests 12/21/19 12/21/19 12/21/19 12:50 12:50 12:50 WBC 9.1 RBC 4.84 Hgb 13.3 Hct 43.4 MCV 89.7 MCH 27.5 MCHC 30.6 L RDW 14.7 Plt Count 244 MPV 10.4 Neut # (Auto) 6.7 H Lymph # (Auto) 1.4 L [place] # (Auto) 0.5 Eos # (Auto) 0.3 Baso # (Auto) 0.1 Absolute Nucleated RBC 0.00 Nucleated RBC % 0.0 Sodium 143 Potassium 3.7 Chloride 100 L Carbon Dioxide 30 Anion Gap 13.0 BUN 22 H Creatinine 1.0 Estimated GFR (MDRD) 54 L Glucose 166 H Calcium 9.7 Total Bilirubin 0.7 AST 20 ALT 14 Alkaline Phosphatase 72 Troponin I High Sens 10.3 B-Natriuretic Peptide Total Protein 7.2 Albumin 3.8 Globulin 3.4 Albumin/Globulin Ratio 1.1 Lipase 24 Urine Color Urine Clarity Urine pH Ur Specific [place] Urine Protein Urine Glucose (UA) Urine Ketones Urine Occult Blood Urine Nitrite Urine Bilirubin Urine Urobilinogen Ur Leukocyte Esterase Urine RBC Urine WBC Ur Squamous Epith Cells Amorphous Sediment Urine Bacteria Urine Culture Comments 12/21/19 12/21/19 12:50 14:40 WBC RBC Hgb Hct MCV MCH MCHC RDW Plt Count MPV Neut # (Auto) Lymph # (Auto) [place] # (Auto) Eos # (Auto) Baso # (Auto) Absolute Nucleated RBC Nucleated RBC % Sodium Potassium Chloride Carbon Dioxide Anion Gap BUN Creatinine Estimated GFR (MDRD) Glucose Calcium Total Bilirubin AST ALT Alkaline Phosphatase Troponin I High Sens B-Natriuretic Peptide 304 H Total Protein Albumin Globulin Albumin/Globulin Ratio Lipase Urine Color YELLOW Urine Clarity CLOUDY Urine pH 6.0 Ur Specific [place] >=1.030 H Urine Protein 30 H Urine Glucose (UA) NEGATIVE Urine Ketones NEGATIVE Urine Occult Blood TRACE-INTA Urine Nitrite POSITIVE H Urine Bilirubin NEGATIVE Urine Urobilinogen 0.2 (NORMAL) Ur Leukocyte Esterase SMALL H Urine RBC 0-5 Urine WBC 11-25 H Ur Squamous Epith Cells FEW Squamous Amorphous Sediment Few Urine Bacteria Few Urine Culture Comments INDICATED PD MEDICAL DECISION MAKING - ED course Complexity details: considered differential (ACS, dysrhtyhmia, HF, vasovagal episode, seizure) ED course: On arrival patient is nontoxic-appearing, heart rate is in the 90s, blood pressure is normal. Her EKG does not show any convincing signs of acute ischemia, she does have left ventricular hypertrophy with a repolarization change, and some Q waves in her inferior leads. She was placed on the monitor, labs were drawn, she has a normal hemoglobin, her abdominal panel is unremarkable, her high-sensitivity troponin is normal at 10.3, her BNP is elevated at 300, this is slightly increased from her previous values which are been in the 200s. Her urine does show positive nitrites and 11-25 white blood cells, consistent with an infection. I do doubt that this urinary tract infection is the primary cause of her episode of syncope, I am concerned for cardiac syncope. I spoke with Dr. Pepper of cardiology at 16:30, who is energy conservation specialist for Dr. Bashir's cardiology group in [facility], and states that she had a reduced ejection fraction during her last hospitalization, they recommend that she gets a repeat echo, and if she has a continued reduced ejection fraction/cardiomyopathy she likely needs a defibrillator as she with presumed to have a tachydysrhythmia causing syncope. Reviewing her recent echocardiogram she had done here, her ejection fraction was Actually in normal range. However given her complex cardiac history, seems that she would be best served at [facility] where she has received her previous cardiac care, as we do not have cardiology here. Patient is in agreement this plan. She will be transferred via ALS. She was given ceftriaxone to treat her UTI. She is stable and well- appearing at the time of transfer. Departure - Departure Disposition: 02 Transfer Acute Care Hosp Clinical Impression: Syncope Qualifiers: Syncope type: unspecified Qualified Code(s): R55 - Syncope and collapse Condition: Good Discharge Date/Time: 12/21/19 19:00
[2019-12-21 13:15] LABS: BASOPHILS # (AUTO) 0.1 10^3/uL (0.0-0.1); BASOPHILS % (AUTO) 0.6 %; EOSINOPHILS # (AUTO) 0.3 10^3/uL (0.0-0.7); EOSINOPHILS % (AUTO) 3.6 %; HGB - HEMOGLOBIN 13.3 g/dL (12.0-16.0); LYMPHOCYTES # (AUTO) 1.4 10^3/uL (1.5-3.5); LYMPHOCYTES % (AUTO) 15.9 %; MEAN CORPUSCULAR HEMOGLOBIN 27.5 pg (27.0-31.0); MEAN CORPUSCULAR HGB CONC 30.6 g/dL (32.0-36.0); MEAN CORPUSCULAR VOLUME 89.7 fL (81.0-99.0); MEAN PLATELET VOLUME 10.4 fL (7.9-10.8); MONOCYTES # (AUTO) 0.5 10^3/uL (0.0-1.0); MONOCYTES % (AUTO) 5.2 %; NEUTROPHILS # (AUTO) 6.7 10^3/uL (1.5-6.6); NEUTROPHILS % (AUTO) 74.4 %; PLT - PLATELET COUNT 244 10^3/uL (130-450); RED BLOOD COUNT 4.84 10^6/uL (4.20-5.40); RED CELL DISTRIBUTION WIDTH 14.7 % (12.0-15.0); WHITE BLOOD COUNT 9.1 x10^3/uL (4.8-10.8)
[2019-12-21 13:25] LABS: ALBUMIN 3.8 g/dL (3.2-5.5); ALBUMIN/GLOBULIN RATIO 1.1 (1.0-2.2); BILIRUBIN,TOTAL 0.7 mg/dL (0.2-1.0); CALCIUM 9.7 mg/dL (8.5-10.3); TOTAL PROTEIN 7.2 g/dL (6.7-8.2)
[2019-12-21 14:51] LABS: BILIRUBIN,URINE NEGATIVE (NEGATIVE); GLUCOSE, URINE (UA) NEGATIVE (NEGATIVE); KETONES,URINE (UA) NEGATIVE (NEGATIVE); LEUKOCYTE ESTERASE, URINE SMALL (NEGATIVE); NITRITE,URINE POSITIVE (NEGATIVE); OCCULT BLOOD,URINE TRACE-INTA (NEGATIVE); PROTEIN,URINE 30 mg/dL (NEGATIVE); UROBILINOGEN,URINE 0.2 (NORMAL) E.U./dL (NORMAL)
[2019-12-21 14:55] LABS: CLARITY,URINE CLOUDY (CLEAR)
[2019-12-21 15:09] LABS: AMORPHOUS SEDIMENT,UR Few /LPF; BACTERIA,URINE Few /HPF (None Seen); SQUAMOUS EPITHELIAL CELL,UR FEW Squamous (<= Few)
[2019-12-21 15:10] LABS: RBC,URINE 0-5 /HPF (0-5)
[2019-12-21] MEDS ORDERED: cefTRIAXone 1 GM in SODIUM CHLORIDE 0.9% MINIBAG 100 ML IV STA (18:29)
[2019-12-21 18:58] VITALS: BP 136/100
== END 2019-12-21 19:00 | disposition short-term general hospital (02) ==
LOC: EDUNIT# → ED 12:21
DX: R55 Syncope and collapse (principal); N39.0 Urinary tract infection, site not specified; I48.91 Unspecified atrial fibrillation; I51.7 Cardiomegaly; I25.10 Atherosclerotic heart disease of native coronary artery without angina pectoris; I25.2 Old myocardial infarction; Z95.5 Presence of coronary angioplasty implant and graft; Z79.01 Long term (current) use of anticoagulants; Z79.82 Long term (current) use of aspirin; J44.9 Chronic obstructive pulmonary disease, unspecified
CPT/HCPCS: 36415; 80053; 81001; 83690; 83880; 84484; 85025; 87077; 87086; 87181; 93005; 96374; 99284

== ENCOUNTER 2019-12-21 18:49 | Outpatient (CLI) | payer MEDICARE, OTHER | END 2019-12-21 18:50 | disposition short-term general hospital (02) | LOC: EMS 18:49 | PROVIDERS: ATTEND Surgery | DX: R55 Syncope and collapse (principal) | CPT/HCPCS: A0425; A0426 ==

== ENCOUNTER 2020-01-24 19:38 | Outpatient (CLI) | payer MEDICARE, OTHER | END 2020-01-24 19:39 | disposition critical access hospital (66) | LOC: EMS 19:38 | PROVIDERS: ATTEND Surgery | DX: R41.0 Disorientation, unspecified (principal) | CPT/HCPCS: A0425; A0427 ==

== ENCOUNTER 2020-01-24 20:01 | Emergency (ER) | payer MEDICARE, OTHER ==
--- NOTE | 2020-01-24 20:18 | ED Physician Documentation ---
History of Present Illness - Stated complaint Stated Complaint: ALOC - History obtained from History obtained from: Patient, EMS - Additonal information Additional information: Patient is brought to the emergency department via EMS for acute alteration in level of consciousness. The patient was seen earlier today at [facility] emergency department for similar symptoms, as well and was worked up in the emergency department there. She was diagnosed with a urinary tract infection from what the medics could gather from the family, and sent home on a different biotic. Patient apparently had been given a dose at the emergency department. The family told medics that when they got home, the patient seemed to have been doing better, but around 1600, and they noticed that her level of consciousness started to diminish. Medics state that when they got to the patient's house, she was staring off and would not answer questions very much. 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 Medics state that in route, they put the patient on some oxygen, Although she had good sats, and that she seemed to perk up over the ride. The patient states that she does not have any pain or other complaints. She remembers being at [facility] and states that she already had a CT scan there when we discussed potentially scanning her brain here to look for a stroke . Family is not initially available to provide any information. PD PAST MEDICAL HISTORY - Past Medical History Cardiovascular: Hypertension, High cholesterol, [place], Atrial fibrillation, Arrhythmia, Other Respiratory: COPD Neuro: CVA, Headaches Endocrine/Autoimmune: None GI: GERD FUNERAL HOME MANAGER: None : None HEENT: Chronic vision loss, Chronic sinusitis Psych: None Musculoskeletal: None Derm: None - Past Surgical History Past Surgical History: Yes General: Appendectomy Ortho: Other /FUNERAL HOME MANAGER: Hysterectomy, Oophrectomy Cardiovascular: Coronary stent, Cardiac catheterization, Vascular surgery, Angioplasty HEENT: Tonsil/Adenoidectomy - Present Medications Home Medications: Ambulatory Orders Medication Instructions Recorded Confirmed Pantoprazole [Protonix] 40 mg PO QDAC 02/15/15 10/16/19 Simvastatin 40 mg PO QPM 02/15/15 10/16/19 Aspirin 81 mg PO DAILY 07/17/18 10/16/19 Nitroglycerin [Nitrostat] 0.4 mg SL Q5MIN PRN #30 tablet 07/18/18 10/16/19 Magnesium Oxide [Mag Ox] 400 mg PO 0800 06/24/19 10/16/19 Apixaban [Eliquis] 5 mg PO BID 10/16/19 10/16/19 Hydrocodone/Acetaminophen 1 - 2 each PO Q6H PRN #14 tablet 10/16/19 [Hydrocodon-Acetaminophen 5-325] Metoprolol Succinate [Toprol Xl] 100 mg PO BID 10/16/19 10/16/19 Sulfamethox/Trimeth 800/160 1 each PO BID #14 tablet 10/16/19 [Bactrim Ds 800/160] amLODIPine [Norvasc] 5 mg PO DAILY 10/16/19 10/16/19 - Allergies Allergies/Adverse Reactions: Allergies Allergy/AdvReac Type Severity Reaction Status Date / Time amoxicillin trihydrate * Allergy Nausea Verified 12/21/19 12:28 [From Augmentin] potassium clavulanate * Allergy Nausea Verified 12/21/19 12:28 [From Augmentin] morphine AdvReac Unknown Verified 12/21/19 12:28 - Social History Does the pt smoke?: No Smoking Status: Never smoker Does the pt drink ETOH?: Yes Does the pt have substance abuse?: No - Immunizations Immunizations are current?: Yes - POLST Patient has POLST: No POLST Status: Full Code PD ED PE NORMAL - Vitals Vital signs reviewed: Yes - General General: No acute distress, Well developed/nourished, Other (Patient is alert and grossly oriented) - HEENT HEENT: Atraumatic, PERRL, EOMI, Moist mucous membranes - Neck Neck: Supple, no meningeal sign - Cardiac Cardiac: RRR, No murmur - Respiratory Respiratory: No respiratory distress, Clear bilaterally - Abdomen Abdomen: Soft, Non tender, Non distended - Derm Derm: Normal color, Warm and dry, No rash - Extremities Extremities: No deformity - 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 There is no ataxia. The patient is able to answer questions coherently and appropriately.) Eye Opening: Spontaneous Motor: Obeys Commands Verbal: Oriented GCS Score: 15 - Psych Psych: Normal mood, Normal affect Results - Vitals Vitals: Vital Signs - 24 hr 01/24/20 01/24/20 01/24/20 20:12 20:44 21:49 Temperature 36.8 C Heart Rate 93 87 96 Respiratory 21 22 19 Rate Blood Pressure 110/75 151/86 H 163/82 H O2 Saturation 93 93 94 Oxygen O2 Source Room air - Rads (name of study) ct head Radiology: Final report received, EMP read indepedently, See rad report PD MEDICAL DECISION MAKING - ED course Complexity details: reviewed old records, reviewed results, re-evaluated patient, considered differential, d/w patient, d/w family ED course: The patient was actually fairly well-appearing in the emergency department and quite alert. I did not find any evidence of an acute condition at this point, particularly in light of the patient's recent work-up. I did order the patient's records from [place] and reviewed them.Patient had a normal white blood cell count this morning 9.3 and metabolic panel was unremarkable.H&H were also normal.Patient's procalcitonin was less than 0.05. Her urinalysis showed positive leukocyte esterase, negative nitrite,10-30 white blood cells, moderate bacteria, and 5-10 squamous epithelial cells.Her troponin was normal.The patient CT scan here showed no acute change since her CT earlier today. I spoke with the patient and her family, including her son, who had arrived and they did feel she was doing better though not 100% back to herself. We have discussed to that combination of the urinary tract infection, along with a long day in the emergency department and being awakened from a deep sleep, all could have contributed to the patient's seeming inattention and confusion/decreased verbal ability. We discussed home management of the symptoms, as well as the usual indications for return. Family does feel comfortable taking her home and continuing her on her course of antibiotic treatment. Departure - Departure Disposition: 01 Home, Self Care Clinical Impression: Altered mental status, UTI (urinary tract infection) Condition: Fair Instructions: ED UTI Cystitis Female Comments: Your head CT tonight is unchanged from earlier today. Your records from [facility] have been reviewed. You were most definitely found to have a urinary active infection, but the rest of your labs actually looked quite good. There is no reason to suspect that these have changed in the last few hours.Most likely, and the episode of decreased alertness and confusion after sleeping was secondary to the draining effects of the infection, along with the earlier events of medical evaluation today. As only a single dose of antibiotics has been given, and that within the last 12 hours, it is unlikely to have accomplished any measurable improvement. Until the antibiotics can fully kick in, There may be a fluctuating level of delirium, which is not uncommon in elderly patients with urinary tract infections. This will begin to diminish as the infection improves. Discharge Date/Time: 01/24/20 21:57
--- NOTE | 2020-01-24 20:57 | CT Report ---
Reason: acute altered level of consciousness Procedure Date: 01/24/2020 Accession Number: [id number] / [id number] Procedure: CT - HEAD WO CPT Code: Final Report FULL RESULT: EXAM: CT HEAD EXAM DATE: 01/24/2020 08:45 PM. CLINICAL HISTORY: 79-year-old female. Acute altered level of consciousness. COMPARISON: HEAD ANGIO 09/21/2019 1:09 PM. TECHNIQUE: Multiaxial CT images were obtained from the foramen magnum to the vertex. Reformats: Sagittal and coronal. IV contrast: None. In accordance with CT protocol optimization, one or more of the following dose reduction techniques were utilized for this exam: automated exposure control, adjustment of mA and/or KV based on patient size, or use of iterative reconstructive technique. FINDINGS: Parenchyma: No intraparenchymal hemorrhage. No evidence of mass, midline shift, or CT findings of acute infarction. [place]-white differentiation is distinct. Diffuse chronic microangiopathic white matter changes are evident. Extraaxial Spaces: Normal for age. No subdural or epidural collections identified. Ventricles: Stable moderate to marked ventriculomegaly. Sinuses and orbits: Status post bilateral lens replacement surgery. Moderate mucosal thickening right maxillary sinus. Remaining Imaged paranasal sinuses, orbits, and mastoids show no significant abnormality. Bones: No evidence of fracture or calvarial defect. Other: None. IMPRESSION: Generalized age-related cortical atrophic changes without evidence of acute intracranial abnormality. RADIA
[2020-01-24 21:50] VITALS: BP 163/82
== END 2020-01-24 21:57 | disposition home or self-care (01) ==
LOC: EDUNIT# → ED 20:01
DX: R41.82 Altered mental status, unspecified (principal); N39.0 Urinary tract infection, site not specified; I69.992 Facial weakness following unspecified cerebrovascular disease; I10 Essential (primary) hypertension; E78.00 Pure hypercholesterolemia, unspecified; I48.91 Unspecified atrial fibrillation; H54.7 Unspecified visual loss; Z79.82 Long term (current) use of aspirin; Z79.01 Long term (current) use of anticoagulants; Z79.891 Long term (current) use of opiate analgesic; Z95.5 Presence of coronary angioplasty implant and graft; I25.2 Old myocardial infarction
CPT/HCPCS: 70450; 99281; 99284

== ENCOUNTER 2020-01-28 22:51 | Outpatient (CLI) | payer MEDICARE, OTHER | END 2020-01-28 22:52 | disposition EMS.NT | LOC: EMS 22:51 | PROVIDERS: ATTEND Surgery | DX: Z03.89 Encounter for observation for other suspected diseases and conditions ruled out (principal) ==

== ENCOUNTER 2020-03-13 12:06 | Emergency (ER) | payer MEDICARE, OTHER ==
[2020-03-13 12:19] VITALS: BP 133/74
--- NOTE | 2020-03-13 14:08 | ED Physician Documentation ---
PD HPI SKIN - Stated complaint Stated Complaint: SORE ON LT FOOT - Chief complaint Chief Complaint: Wound - History obtained from History obtained from: Patient - History of Present Illness Timing - onset: Today Timing - duration: Hours Timing - details: Abrupt onset, Still present Location: LUE Quality / character: Discolored. No: Itchy, Painful, Burning, Raised, Vesicular, Crusted, Swelling, Draining Contributing factors: Unknown Similar symptoms before: Has not had sx before Recently seen: Not recently seen - Additional information Additional information: 80-year-old female with a history of peripheral vascular disease states that she had her [id number] put some cream on her feet yesterday and feet looked well and today she has inspected her feet and she sees some brown on the ball of the foot on the left side only. She is concerned about her peripheral vascular disease she states that this does not hurt it was not present last night it is present today. She is not had any drainage from the area and the area is not tender. Review of Systems Constitutional: denies: Fever Eyes: denies: Decreased vision Ears: denies: Ear pain Nose: denies: Congestion Throat: denies: Sore throat Cardiac: denies: Chest pain / pressure, Palpitations Respiratory: denies: Dyspnea, Cough GI: denies: Nausea, Vomiting : denies: Dysuria, Frequency Skin: reports: Other (discoloration to the left medial foot.). 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: None : None HEENT: Chronic vision loss, Chronic sinusitis Psych: None Musculoskeletal: None Derm: None - Past Surgical History Past Surgical History: Yes General: Appendectomy Ortho: Other /PROJECT TECHNICIAN: Hysterectomy, Oophrectomy Cardiovascular: Coronary stent, Cardiac catheterization, Vascular surgery, Angioplasty HEENT: Tonsil/Adenoidectomy - Present Medications Home Medications: Ambulatory Orders Medication Instructions Recorded Confirmed Pantoprazole [Protonix] 40 mg PO QDAC 02/15/15 10/16/19 Simvastatin 40 mg PO QPM 02/15/15 10/16/19 Aspirin 81 mg PO DAILY 07/17/18 10/16/19 Nitroglycerin [Nitrostat] 0.4 mg SL Q5MIN PRN #30 tablet 07/18/18 10/16/19 Magnesium Oxide [Mag Ox] 400 mg PO 0800 06/24/19 10/16/19 Apixaban [Eliquis] 5 mg PO BID 10/16/19 10/16/19 Hydrocodone/Acetaminophen 1 - 2 each PO Q6H PRN #14 tablet 10/16/19 [Hydrocodon-Acetaminophen 5-325] Metoprolol Succinate [Toprol Xl] 100 mg PO BID 10/16/19 10/16/19 Sulfamethox/Trimeth 800/160 1 each PO BID #14 tablet 10/16/19 [Bactrim Ds 800/160] amLODIPine [Norvasc] 5 mg PO DAILY 10/16/19 10/16/19 - Allergies Allergies/Adverse Reactions: Allergies Allergy/AdvReac Type Severity Reaction Status Date / Time amoxicillin trihydrate * Allergy Nausea Verified 12/21/19 12:28 [From Augmentin] potassium clavulanate * Allergy Nausea Verified 12/21/19 12:28 [From Augmentin] morphine AdvReac Unknown Verified 12/21/19 12:28 - Social History Does the pt smoke?: No Smoking Status: Never smoker Does the pt drink ETOH?: Yes Does the pt have substance abuse?: No - Immunizations Immunizations are current?: Yes - POLST Patient has POLST: No POLST Status: Full Code PD ED PE NORMAL - Vitals Vital signs reviewed: Yes (tachy and hypertensive ) - General General: Alert and oriented X 3, No acute distress, Well developed/nourished - HEENT HEENT: Atraumatic, PERRL, EOMI - Respiratory Respiratory: No respiratory distress - Derm Derm: Normal color, Warm and dry - Extremities Extremities: No deformity, No edema, Other (The left foot demonstrates poor capillary refill and purple discoloration to the skin on the dorsal and medial aspect of the foot there is a palpable dorsalis pedis pulse. The patient states the redness and the nina color to her foot is normal. The brown discoloration over the ball of the foot is not normal and this is her concern. This area is not tender and the brown coloring wipes off with an alcohol wipe.) - Neuro Neuro: Alert and oriented X 3, panel beater 2-12 intact, No motor deficit, No sensory deficit, Normal speech Eye Opening: Spontaneous Motor: Obeys Commands Verbal: Oriented GCS Score: 15 - Psych Psych: Normal mood, Normal affect Results - Vitals Vitals: Vital Signs - 24 hr 03/13/20 12:14 Temperature 36.7 C Heart Rate 104 H Respiratory 18 Rate Blood Pressure 133/74 H O2 Saturation 92 Oxygen O2 Source Room air PD MEDICAL DECISION MAKING - ED course Complexity details: reviewed results, re-evaluated patient, considered differential, d/w patient ED course: 80-year-old female with history of peripheral vascular disease came in today with something that she was concerned may be an issue with necrotic tissue and this ended up being something staining her foot a brown color. After removal of the stain there is a uniform discoloration to the foot consistent with the peripheral vascular disease the patient has and she does have poor capillary refill. The appearance is not different from her normal. I have asked her to follow-up with her vascular surgeon in [place] and she indicates that that this is overdue and she will do that. She is not having pain she has not moving around much and she is having some trouble getting to and from appointments. I do not believe there is any urgency to see the vascular surgeon. Departure - Departure Disposition: 01 Home, Self Care Clinical Impression: Peripheral vascular disease Condition: Stable Instructions: ED PVD Follow-Up: Bisi Rowe MD [Primary Care Provider] - Discharge Date/Time: 03/13/20 14:17
== END 2020-03-13 14:17 | disposition home or self-care (01) ==
LOC: ED 12:06
DX: I73.9 Peripheral vascular disease, unspecified (principal); I10 Essential (primary) hypertension
CPT/HCPCS: 99281